=== PATIENT | male | born 1950 | race Hispanic/Latino ===

== ENCOUNTER 2018-06-08 11:36 | Inpatient (IN) | payer MEDICARE ==
[2018-06-08] VITALS (30 sets, daily range): BP systolic 94–142; BP diastolic 61–94
[~2018-06-08] VITALS: Ht 157.5 cm; Wt 70.4 kg
[2018-06-08] MEDS ORDERED: AMIODARONE HCL 150MG 100 ML IV ONE (12:30)
[2018-06-08] MEDS ORDERED: METOPROLOL TARTRATE INJ 1 MG/ML VIAL IV ONE (12:30)
[2018-06-08 12:34] LABS: BASOPHILS % 0.6 % (0.0-1.0); EOSINOPHILS # (AUTO) 0.3 (0.0-0.4); EOSINOPHILS % 4.9 % (0.0-6.0); HEMATOCRIT 39.8 % (38.2-49.6); HEMOGLOBIN 13.5 g/dL (14.0-18.0); LYMPHOCYTES # (AUTO) 0.9 (1.0-3.2); LYMPHOCYTES % 16.2 % (18.0-39.1); MEAN CORPUSCULAR HEMOGLOBIN 32.3 pg (28-32); MEAN CORPUSCULAR HGB CONC 33.9 g/dL (31-35); MEAN CORPUSCULAR VOLUME 95.2 fL (81-99); MONOCYTES # (AUTO) 0.5 (0.2-0.8); MONOCYTES % 8.8 % (4.4-11.3); NEUTROPHILS # (AUTO) 3.7 (2.1-6.9); NEUTROPHILS % 69.3 % (38.7-80.0); PLATELET COUNT 159 x10e3/uL (140-360); RED BLOOD COUNT 4.18 x10e6/uL (4.3-5.7); RED CELL DISTRIBUTION WIDTH 14.6 % (11.7-14.4)
[2018-06-08] MEDS ORDERED: AMIODARONE 900MG 500 ML IV ONE (12:40)
[2018-06-08 12:58] LABS: ALBUMIN 4.1 g/dL (3.5-5.0); ANION GAP 16.6 mmol/L (8-16); CALCIUM 10.2 mg/dL (8.4-10.2); CREATININE, SERUM 4.33 mg/dL (0.72-1.25); MAGNESIUM 2.2 MG/DL (1.3-2.1); PHOSPHORUS 1.8 MG/DL (2.3-4.7); POTASSIUM 3.6 mmol/L (3.5-5.1)
--- NOTE | 2018-06-08 12:58 | Diagnostic Imaging Report ---
EXAMINATION: CHEST SINGLE (PORTABLE) INDICATION: \S\Palpitations COMPARISON: None FINDINGS: AP view TUBES and LINES: Right-sided ICD with 3 leads. Median sternotomy wires and mediastinal clips. LUNGS: Lungs are well inflated. There are bibasilar atelectasis. There is mild prominence of the central pulmonary vasculature, consistent with pulmonary venous congestion. PLEURA: No pleural effusion or pneumothorax. HEART AND MEDIASTINUM: Cardiac size is moderately enlarged. There are atherosclerotic calcifications within the aorta. BONES AND SOFT TISSUES: No acute osseous lesion. Soft tissues are unremarkable. UPPER ABDOMEN: No free air under the diaphragm. IMPRESSION: Moderate cardiomegaly with mild central pulmonary venous congestion. Signed by: Dr. Saleem Lackey M.D. on 06/08/2018 12:55 PM
[2018-06-08] MEDS ORDERED: AMIODARONE HCL 150 MG in DEXTROSE 5% 100ML 100 ML IV ONE (13:00)
[2018-06-08] MEDS ORDERED: RENVELA0.8 GM PO (13:17)
[2018-06-08] MEDS ORDERED: CLOPIDOGREL75 MG PO (13:17)
[2018-06-08] MEDS ORDERED: METOPROLOL SUCC25 MG PO (13:17)
[2018-06-08] MEDS ORDERED: PRAVASTATIN SOD20 MG PO (13:17)
[2018-06-08] MEDS ORDERED: ASPIR 8181 MG PO (13:17)
[2018-06-08 13:18] LABS: THYROID STIMULATING HORMONE 2.308 uIU/mL (0.350-4.940)
[2018-06-08] MEDS ORDERED: ONDANSETRON HCL INJ 2 MG/ML VIAL IV PRN (14:30)
[2018-06-08] MEDS ORDERED: ASPIRIN 81 MG CHEW TAB PO ONE (14:30)
[2018-06-08] MEDS ORDERED: POTASSIUM PHOSPHATE 20 MM in SODIUM CHLORIDE 0.9% 250ML 250 ML IV SCH (15:30)
[2018-06-08] MEDS: SEVELAMER CARBONATE 800 MG TAB PO SCH (17:00)
[2018-06-08] MEDS ORDERED: HEPARIN 25,000U/0.45% NS 250ML 700 UNIT in SODIUM CHLORIDE 0.9% 250ML 0 ML IV SCH (18:30)
[2018-06-08] MEDS ORDERED: HEPARIN SOD (PORCINE) 5,000 UNIT/ML VIAL IV ONE (18:30)
[2018-06-08 19:54] LABS: CREATINE KINASE MB 1.3 ng/mL (0-5.0)
--- NOTE | 2018-06-08 21:31 | Consultation ---
DATE OF CONSULTATION: June 08, 2018 HISTORY: Mr. Jonathan Le is a 67-year-old gentleman with underlying history of hypertension, end-stage renal disease, type-2 diabetes and organ damage, underlying coronary artery disease, status post pacemaker placement, had issues with his pacemaker, apparently Dr. Purcell is consulted, went into AFib with RVR. Currently, laying supine, in no apparent distress. He is status post dialysis today, completely asymptomatic. Denies shortness of breath, nausea, and vomiting or chest pains. Chest x-ray shows moderate cardiomegaly with mild central pulmonary venous congestion. LABORATORY TEST: White count 5.3, hemoglobin 13.5. Potassium 3.6, creatinine 4.33, with the BNP of 1435. ALLERGIES: NO APPARENT DRUG ALLERGIES. CURRENT MEDICATIONS 1. Patient is on amiodarone. Heart rate is now better in the 80s. 2. Aspirin 81 mg once a day. 3. Plavix 75 mg once a day. 4. Metoprolol 25 mg daily. 5. Ondansetron. 6. Pravastatin. 7. Renagel. For dose , please see MAR. SOCIAL HISTORY: Patient does not smoke or drink. PAST HISTORY: History of AV fistula creation and coronary artery bypass surgery. EXAM GENERAL: Awake, alert, laying supine, in no apparent distress. VITAL SIGNS: With the blood pressure of 129/82, pulse rate 114, afebrile. HEENT: Head and neck: Cornea clear. Oral mucosa dry. LUNGS: Relatively clear. No rales or rhonchi. HEART: S1, S2 audible. ABDOMEN: Soft, nontender. LOWER EXTREMITIES: No edema. IMPRESSIONS AND PLAN 1. End-stage renal disease. No evidence of fluid overload, status post dialysis. 2. Secondary hyperparathyroidism. 3. Anemia of chronic kidney disease. 4. Blood pressure appears controlled. Volume status stable. Further recommendations to follow. Job#: [id number] CQ
[2018-06-08] MEDS ORDERED: HEPARIN SOD (PORCINE) 5,000 UNIT/ML VIAL ONE (22:03)
[2018-06-08] MEDS ORDERED: HEPARIN 25,000U/0.45% NS 250ML 250 ML ONE (22:07)
[2018-06-09] VITALS (52 sets, daily range): BP systolic 97–137; BP diastolic 55–81
[2018-06-09 04:40] LABS: BASOPHILS % 0.5 % (0.0-1.0); EOSINOPHILS # (AUTO) 0.4 (0.0-0.4); EOSINOPHILS % 6.3 % (0.0-6.0); HEMATOCRIT 35.9 % (38.2-49.6); HEMOGLOBIN 12.2 g/dL (14.0-18.0); LYMPHOCYTES % 16.1 % (18.0-39.1); MEAN CORPUSCULAR HEMOGLOBIN 32.4 pg (28-32); MEAN CORPUSCULAR VOLUME 95.5 fL (81-99); MONOCYTES # (AUTO) 0.6 (0.2-0.8); NEUTROPHILS # (AUTO) 3.9 (2.1-6.9); NEUTROPHILS % 66.8 % (38.7-80.0); PLATELET COUNT 147 x10e3/uL (140-360); RED BLOOD COUNT 3.76 x10e6/uL (4.3-5.7); RED CELL DISTRIBUTION WIDTH 14.5 % (11.7-14.4)
[2018-06-09 05:00] LABS: ALBUMIN 3.4 g/dL (3.5-5.0); ANION GAP 19.4 mmol/L (8-16); CALCIUM 8.4 mg/dL (8.4-10.2); CREATININE, SERUM 6.38 mg/dL (0.72-1.25); POTASSIUM 4.4 mmol/L (3.5-5.1)
[2018-06-09 05:18] LABS: CREATINE KINASE MB 1.2 ng/mL (0-5.0)
[2018-06-09 07:39] LABS: MAGNESIUM 2.1 MG/DL (1.3-2.1); PHOSPHORUS 5.3 MG/DL (2.3-4.7)
[2018-06-09] MEDS: SEVELAMER CARBONATE 800 MG TAB PO SCH ×2 (08:58→12:47)
[2018-06-09] MEDS ORDERED: CLOPIDOGREL BISULFATE 75 MG TAB PO SCH (09:00)
[2018-06-09] MEDS ORDERED: ASPIRIN 81 MG CHEW TAB PO SCH (09:00)
[2018-06-09] MEDS ORDERED: PRAVASTATIN 20 MG TAB PO SCH (09:00)
[2018-06-09] MEDS ORDERED: METOPROLOL SUCCINATE 25 MG TAB XL PO SCH (09:00)
[2018-06-09 12:56] LABS: CREATINE KINASE MB 1.2 ng/mL (0-5.0)
[2018-06-09] MEDS ORDERED: ELIQUIS PO (15:41)
--- NOTE | 2018-06-09 16:57 | Consultation ---
DATE OF CONSULTATION: June 09, 2018 CARDIOLOGY CONSULTATION REFERRING PHYSICIAN: Dr. Tomas Gupta. HISTORY OF PRESENT ILLNESS: Mr. Le is a pleasant 67-year-old man followed by Dr. Patel as outpatient. He has a history of hypertension, end-stage renal disease, type 2 diabetes with end-organ damage, CAD status post aortocoronary bypass, and history of bi-V AICD recently placed by Dr. Addison. He gets scheduled dialysis and is followed by Dr. Chris. He was noted to have wide-complex tachycardia while on dialysis, reason why he was transferred to inpatient for further evaluation, was placed on amiodarone drip. Interrogation of the device was significant for atrial fibrillation with episodes of rapid ventricular response, no ventricular tachycardia noted. A decision was made to initiate IV heparin, continue amiodarone. Patient was scheduled for observation of 24-hour period, after which if no cardioversion was observed next day will be NANO-guided DC cardioversion. This was discussed with patient and nursing staff prior to scheduling for DC cardioversion. He, however, converted to normal sinus rhythm. He has no complaints, denies chest pain or shortness of breath, feels back to baseline. I extensively discussed of alternatives for treatment including vitamin K antagonist versus new oral anticoagulants. Indications, alternatives, risks and benefits were discussed including lack of reversibility agent with many of the new oral anticoagulants including Eliquis. Patient opts, after voicing understanding, for Eliquis anticoagulation, which will be initiated. He has been advised to discontinue the aspirin and continue the clopidogrel and follow up as outpatient with his vice president regulatory. He has no other complaints at this point in time. REVIEW OF SYSTEMS: A 12-system review negative except for as noted above. ALLERGIES: NO KNOWN DRUG ALLERGIES. NONE REPORTED. PAST MEDICAL HISTORY: Significant for ESRD, diabetes mellitus type 2, hypertension, bi-V AICD, chronic systolic heart failure, atrial fibrillation new diagnosis. SOCIAL HISTORY: No smoking, alcohol or drugs. FAMILY HISTORY: Noncontributory. PHYSICAL EXAMINATION VITAL SIGNS: Temperature 97.5, heart rate 61, respiratory rate 18, blood pressure 116/65, O2 sat 100% on room air. GENERAL: No acute distress. Alert. NECK: No JVD. CHEST: Clear to auscultation. CARDIOVASCULAR: Regular rate and rhythm. Normal S1 and S2. No S3 or S4. No murmurs or rubs. Sternotomy scar. ABDOMEN: Soft, nontender. EXTREMITIES: No edema. CARDIOVASCULAR MEDICATIONS: Reviewed. 1. Metoprolol succinate 25 mg daily. 2. Clopidogrel 75 mg daily. 3. Aspirin 81 mg daily. 4. Heparin IV being transitioned to Eliquis 5 mg every 12 hours. 5. Status post amiodarone drip. Will discontinue further amiodarone dosage at this point and allow patient's treating vice president regulatory to make decision on continuing long-term amiodarone dosage versus other alternative modalities for treatment. STUDIES: Reviewed. White blood cells 5.9, hemoglobin 12.2, platelets 147. PTT 61. Sodium 139, potassium 4.4, chloride 99, bicarbonate 25, BUN 32, creatinine 6.3, magnesium 2.1. Negative cardiac enzymes x3. BNP was 1435. Total protein 6.7, albumin 3.4. Chest x-ray, moderate cardiomegaly with mild central pulmonary venous congestion. On telemetry currently in normal sinus rhythm with paced rhythm. ASSESSMENT 1. Paroxysmal atrial fibrillation, new onset. 2. Chronic systolic heart failure with acute decompensation, now improved. 3. End-stage renal disease. 4. Hypertension. 5. Diabetes mellitus. 6. Coronary artery disease with history of aortocoronary bypass. RECOMMENDATIONS 1. Eliquis 5 mg every 12 hours. 2. Continue metoprolol. 3. Okay to discharge with outpatient followup with Dr. Patel. Job#: [id number] EV
== END 2018-06-09 16:26 | disposition home or self-care (01) | DRG 308 ==
LOC: ER 11:36 → ERHOLD 14:46 → ICU 16:59
PROVIDERS: ADMIT Internal Medicine Critical Care Medicine; ATTEND Internal Medicine Critical Care Medicine
DX: I48.0 Paroxysmal atrial fibrillation (principal); N18.6 End stage renal disease; I50.23 Acute on chronic systolic (congestive) heart failure; I13.2 Hypertensive heart and chronic kidney disease with heart failure and with stage 5 chronic kidney disease, or end stage renal disease; N25.81 Secondary hyperparathyroidism of renal origin; E11.22 Type 2 diabetes mellitus with diabetic chronic kidney disease; Z99.2 Dependence on renal dialysis; Z95.1 Presence of aortocoronary bypass graft; D63.1 Anemia in chronic kidney disease; Z95.810 Presence of automatic (implantable) cardiac defibrillator; I25.10 Atherosclerotic heart disease of native coronary artery without angina pectoris; Z79.01 Long term (current) use of anticoagulants; Z79.02 Long term (current) use of antithrombotics/antiplatelets
CPT/HCPCS: 36415; 71045; 80053; 82550; 82553; 83735; 83880; 84100; 84443; 84484; 85025; 85730; 93005; 93306; 99284; J1644; J7050

== ENCOUNTER 2020-05-18 13:48 | Inpatient (IN) | payer MEDICARE, OTHER ==
[~2020-05-18] VITALS: Ht 165.1 cm; Wt 64.9 kg
[~2020-05-18 13:48] MED LIST: ASPIR 8181 MG PO; CLOPIDOGREL75 MG PO; ELIQUIS PO; METOPROLOL SUCC25 MG PO; PRAVASTATIN SOD20 MG PO; RENVELA0.8 GM PO
--- OUTSIDE RECORDS SUMMARY | 2020-05-18 14:03 | XMS REPORT | Clinical Summary ---
Author Author [facility] Address Unknown Phone Unavailable Care Team Providers Care Buffer Copper Name Role Phone Hayden Romero MD 3 Unavailable Stephanie Valdez PCP Issa Prado MD Unavailable Allergies No Known Allergies Medications End Date Status Medication Sig Dispensed Refills Start Date Active clopidogrel (PLAVIX) 75 Take 75 mg by 0 mg tablet mouth daily. Active valsartan (DIOVAN) 40 MG Take 40 mg by 0 tablet mouth daily. Active glipiZIDE (GLUCOTROL) 5 Take 10 mg by 0 MG tablet mouth daily. Active sevelamer (RENVELA) 800 Take 800 mg 0 mg tablet by mouth 3 (three) times daily with meals. Active cholecalciferol, vitamin Take by 0 D3, 2,000 unit Cap mouth. Active pravastatin (PRAVACHOL) Take 40 mg by 0 40 MG tablet mouth daily. Active lisinopril Take 20 mg by 0 (PRINIVIL,ZESTRIL) 20 MG mouth daily. tablet Active metoprolol (TOPROL-XL) 25 Take 25 mg by 0 MG 24 hr tablet mouth daily. Active metoprolol (LOPRESSOR) 25 Take 25 mg by 0 MG tablet mouth daily. Active Problems Problem Noted Date DM (diabetes mellitus) 10/03/2013 HTN (hypertension) 10/03/2013 Hyperlipidemia 10/03/2013 Pre-transplant evaluation for ESRD (end stage renal d isease) 07/25/2013 Encounters Care Team Description Date Type Specialty Shelly Hong RN 09/26/2019 Abstract Transplant Shelly Hong RN Committee Review 07/28/2019 Telephone Transplant Breanna Rouse Appointment (Called patient to schedule Malian day one renal txp eval appt. No answer. Left detailed voicemail message in Malian.) 07/06/2019 Telephone Transplant Breanna Rouse 07/05/2019 Abstract Transplant after 05/18/2019 Family History Medical History Relation Name Comments Coronary artery disease Brother Coronary artery disease Mother Coronary artery disease Sister Relation Name Status Comments Brother Mother Sister Social History Date Tobacco Use Types Packs/Day Years Used Never Smoker Sex Assigned at Date Recorded Not on file Industry Job Start Date Occupation Not on file Not on file Not on file Travel End Travel History Travel Start No recent travel history available. Last Filed Vital Signs Time Taken Vital Sign Reading - Blood Pressure - - Pulse - - Temperature - - Respiratory Rate - - Oxygen Saturation - - Inhaled Oxygen - Concentration 07/05/2019 9:38 AM CDT Weight 64 kg (141 lb 1.5 oz) 07/05/2019 9:38 AM CDT Height 166.4 cm (5' 5.51") 07/05/2019 9:38 AM CDT Body Mass Index 23.11 Plan of Treatment Health Maintenance Due Date Last Done Comments COLON CANCER SCREENING 1952 COLONOSCOPY PNEUMOCOCCAL 65+ 2017 LOW/MEDIUM RISK (1 of 2 - PCV13) INFLUENZA VACCINE (#1) 2020 Results Not on fileafter 05/18/2019 Insurance Payer Benefit Subscriber ID Type Phone Address Plan / Group MEDICARE MEDICARE A xxxxxxxxxx Medicare B
--- OUTSIDE RECORDS SUMMARY | 2020-05-18 14:03 | XMS REPORT | Continuity of Care Document ---
Author Author Christie ContentDJ GUDEL[facility] [employer] Address Unknown Phone Unavailable Care Team Providers Care Head Soft Sugar Operator Name Role Phone IXcellerate Information [employer] Unavailable Un available Problems Problem Status Onset Date Classification Date Reported Comments Source Angina Active Problem 04/26/2014 Gila Lund ESRD (end stage renal disease) on dialysis Active Problem 04/26/2014 Gila Lund Mitral valve disorders Active Problem 04/26/2014 Gila Lund CAD (coronary artery disease) of bypass graft Active Problem 04/26/2014 Gila Lund Abnormal cardiovascular stress test Active Diagnosis 0 04/26/2014 Gila Lund CHF Chronic diastolic heart failure Active Problem Gila Lund Carotid Bruit Active Diagnosis 04/26/2014 Gila Lund Swelling of limb Active Problem 04/26/2014 Gila Lund Equivalent angina Active Problem 04/26/2014 Gila Lund Shortness of breath Active Problem 04/26/2014 Gila Lund CHF Acute Systolic Heart failure Active Problem Gila Lund Diabetes with unspecified complication, type II or unspecified type, not stated as uncontrolled Active Diagnosis 04/26/2014 Gila Lund Abnormal EKG Active Diagnosis 04/26/2014 Gila Lund Medications Medication Details Route Status Patient Instructions Ordering Provider Order Date Source Pravastatin Sodium 1 tablet Orally Active 20 mg Orally Once a day Kevon Lund Metoprolol Tartrate 1 tablet Orally Active 25 MG Orally twice a day (bid) Kevon Lund Clopidogrel Bisulfate 1 tablet Orally Active 75 mg Orally Once a day Kevon Lund Benzonatate 1 capsule as needed Orally Active 100 MG Orally Three times a day Kevon Lund Lisinopril 1 tablet Orally Active 20 mg Orally Once a day Kevon Lund GlipiZIDE 1 tablet Orally Active 10MG Orally BID Kevon clark Osmany Lund Allergies, Adverse Reactions, Alerts Substance Category Reaction Severity Reaction type Status Date Reported Comments Source N.K.D.A. Adverse Reaction Info Not Available Adverse Reaction Active 04/19/2014 Gila Lund Immunizations No Data Provided for This Section Results No Data Provided for This Section Pathology Reports No Data Provided for This Section Diagnostic Reports No Data Provided for This Section Consultation Notes No Data Provided for This Section Discharge Summaries No Data Provided for This Section History and Physicals No Data Provided for This Section Vital Signs Vital Sign Value Date Comments Source Weight 163 04/19/2014 Mohamber Lund Height 64 0 04/19/2014 Gila Lund Temperature Oral (F) 97.8 F 04/19/2014 Gila Lund Heart Rate 93 04/19/2014 Gila Lund Diastolic (mm Hg) 70 04/19/2014 Mohamber Lund Systolic (mm Hg) 120 04/19/2014 Gila Lund Encounters Location Location Details Encounter Type Encounter Number Reason For Visit Attending Provider ADM Date DC Date Status Source Gila Lund MD PA Unknown [id number] 04/19/20 14 04/19/2014 Gila Lund Procedures No Data Provided for This Section Assessment and Plan No Data Provided for This Section Plan of Care No Data Provided for This Section Social History Social History Date Source Social History ElementQualifiersDate Rep orted Smoking . Status Former Smoker 1980 Apr 19, 2014 Alcohol Use No. Apr 19, 2014 Alcohol Screening: No. Points: 0, Interpretation: Negative Apr 19, 2014 Marital Status: . Apr 19, 2014 Do you drink alcohol? No. Apr 19, 2014 04/19/2014 Gila Lund Family History Value Date S ource QualifierDescriptionCommentDate Reported Mother [place], DM Apr 19, 2014 Children alive Comment not available Apr 19, 2014 Father Cancer, questionable primary Apr 19, 2014 Siblings alive Comment not available Apr 19, 2014 04/26/2014 Gila Lund Advance Directives No Data Provided for This Section Functional Status No Data Provided for This Section
--- OUTSIDE RECORDS SUMMARY | 2020-05-18 14:03 | XMS REPORT | Clinical Summary ---
Author Author [facility] Address Unknown Phone Unavailable Care Team Providers Care Fire Hose Curer Name Role Phone Stephanie Valdez MD PCP Allergies No Known Allergies Medications End Date Status Medication Sig Dispensed Refills Start Date Active sevelamer (RENAGEL) 800 Take 800 mg 0 MG tablet by mouth daily. Active aspirin (ECOTRIN) 81 MG Take 81 mg by 0 enteric coated tablet mouth daily. Active pravastatin (PRAVACHOL) Take 20 mg by 0 20 MG tablet mouth nightly. Active clopidogreL (PLAVIX) 75 Take 75 mg by 0 mg tablet mouth daily. Active metoprolol tartrate Take 50 mg by 0 (LOPRESSOR) 50 mg tablet mouth daily. 0 12/20/2020 Active lisinopriL (PRINIVIL) 5 Take 1 tablet 30 tablet 11 mg tabletIndications: (5 mg total) 0 Essential hypertension by mouth daily. Active Problems Problem Noted Date Hypertension Hyperlipidemia Encounters Care Team Description Date Type Specialty Louie Patel MD Essential hypertension (Primary Dx); Mixed hyperlipidemia 01/25/2020 Telemedicine Cardiology 01/25/2020 Coby Sandoval MA Results 01/03/2020 Telephone Cardiology Coby Gutiérrez MA Mixed hyperlipidemia (Primary Dx) 12/25/2019 Orders Only Cardiology Louie Patel MD Essential hypertension (Primary Dx); Mixed hyperlipidemia; Chronic systolic heart failure (HCC); Biventricular cardiac pacemaker in situ 12/21/2019 Telemedicine Cardiology 12/05/2019 Coby Sandoval MA Mixed hyperlipidemia (Primary Dx) 12/05/2019 Orders Only Cardiology Coby Gutiérrez MA Essential hypertension (Primary Dx) 12/05/2019 Orders Only Cardiology Louie Patel MD Essential hypertension (Primary Dx); Mixed hyperlipidemia; Encounter to establish care 11/14/2019 Office Visit Cardiology after 05/18/2019 Family History Medical History Relation Name Comments No Known Problems Father Heart attack Mother Heart attack Sister Relation Name Status Comments Brother Father Mother Sister Social History Date Tobacco Use Types Packs/Day Years Used Former Smoker Smokeless Tobacco: Never Used Tobacco Cessation: Counseling Given: Yes Drinks/Week oz/Week Comments Alcohol Use Never Alcohol Habits Answer Date Recorded How often do you have a drink containing alcohol? Never 11/14/2019 How many drinks containing alcohol do you have on No t asked a typical day when you are drinking? How often do you have six or more drinks on one Not asked occasion? Sex Assigned at Date Recorded Not on file Industry Job Start Date Occupation Not on file Not on file Not on file Travel End Travel History Travel Start No recent travel history available. Last Filed Vital Signs Reading Time Taken Comments Vital Sign 158/55 01/25/2020 2:14 PM CDT Blood Pressure 70 11/14/2019 1:57 PM COLOR PRINT INSPECTOR Pulse - - Temperature - - Respiratory Rate - - Oxygen Saturation - - Inhaled Oxygen Concentration 66.2 kg (146 lb) 01/25/2020 2:14 PM CDT Weight 162.6 cm (5' 4") 01/25/2020 2:14 PM CDT Height 25.06 01/25/2020 2:14 PM CDT Body Mass Index Plan of Treatment Care Team Description Date [place] [id number] [address] [phone] 07/30/2020 Office Visit Cardiology Health Maintenance Due Date Last Done Comments DIABETIC RETINAL EYE EXAM 1950 DIABETIC FOOT EXAM 1962 URINE MICROALBUMIN 1962 COLONOSCOPY SCREENING 2002 SHINGLES VACCINES (#1) 2002 65+ PNEUMOCOCCAL VACCINE 2017 (1 of 2 - PCV13) INFLUENZA VACCINE 06/13/2020 Procedures Comments Procedure Name Priority Date/Time Associated Diag nosis LIPID PANEL Routine 01/02/2020 Mixed hyperlipi demia 7:37 AM CDT TTE COMPLETE, WO Routine 12/05/2019 Essential hyp ertension CONTRAST, W DOPPLER 11:25 AM CDT (05906) LIPID PANEL Routine 12/05/2019 Mixed hyperlipi demia 9:15 AM CDT ECG 12-LEAD Routine 11/14/2019 Essential hyper tension 2:03 PM COLOR PRINT INSPECTOR after 05/18/2019 Results * Lipid panel (01/02/2020 7:37 AM CDT) Only the most recent of 2 results within the time period is included. Pathologist [facility] Cholesterol, 140 <200 mg/dL [facility] total DIAGNOSTICS [place] HDL cholesterol 43 > OR = 40 mg/dL [facility] [place] Triglycerides 135 <150 mg/dL [facility] [place] LDL cholesterol 75 mg/dL (calc) [facility] calculated Comment: DIAGNOSTICS Reference range: <100 [place] Desirable range <100 mg/dL for primary prevention; <70 mg/dL for patients with CHD or diabetic patients with > or = 2 CHD risk factors. LDL-C is now calculated using the Lacy calculation, which is a validated novel method providing better accuracy than the Friedewald equation in the estimation of LDL-C. Rodrick SS et al. JOMAR. 2013;310(19): 7702-5138 (http://education.[employer].reMail/faq/JBU345) Cholesterol/HDL 3.3 <5.0 (calc) [facility] ratio DIAGNOSTICS [place] Non-HDL 97 <130 mg/dL (calc) [facility] cholesterol Comment: DIAGNOSTICS For patients with diabetes [place] plus 1 major ASCVD risk factor, treating to a non-HDL-C goal of <100 mg/dL (LDL-C of <70 mg/dL) is considered a therapeutic option. Specimen Blood Narrative Performed At FASTING:YES [facility] FASTING: YES Resulting Agency Comment Performing Organization Information: Site ID: [id number] Name: [facility] Address: [address] [place] [id number] Director: Pastor Lemon Performing Organization Address City/State/Zipcode Ph one Number [facility] [address] [phone] * Transthoracic Echocardiogram Complete, (w Contrast, Strain and 3D if needed) (12/05/2019 11:25 AM CDT) Pathologist [facility] Ao Root 3.20 cm [facility] Diameter AoV Area, Vmax 1.82 cm2 [facility] AoV Area, VTI 1.56 cm2 [facility] AoV Mean PG 4.10 mmHg [facility] AoV Peak PG 8.82 mmHg [facility] AoV Vmax 1.49 m/s [facility] AoV VTI 0.34 m [facility] IVS,d 1.10 cm [facility] Left Atrium 4.56 cm [facility] Dimension Anterior LV,d 5.96 cm [facility] LV EF,A2C 27.02 % [facility] LV EF,A4C 23.34 % [facility] LV EF,BP 25.48 % [facility] [place],d A2C 8.89 cm [facility] [place],d A4C 8.65 cm [facility] [place],s A2C 7.61 cm [facility] [place],s A4C 7.76 cm [facility] LV,s 5.24 cm [facility] LV SV,A2C 43.95 % [facility] LV SV,A4C 36.17 % [facility] LV Vol,d A2C 162.65 mL [facility] LV Vol,d A4C 154.94 ml [facility] LV Vol,d BP 160.50 ml [facility] LV Vol,s A2C 118.70 mL [facility] LV Vol,s A4C 118.77 ml [facility] LV Vol,s BP 119.61 nl [facility] LVOT Diam,S 2.11 cm [facility] LVOT Vmax 0.78 m/s [facility] LVOT VTI 0.15 m [facility] LVPWD,d 1.11 cm [facility] PV Mean Grad 2.12 mmHg [facility] PV Pk Grad 3.53 mmHg [facility] PV VMAX 0.94 m/s [facility] PV VTI 0.25 m [facility] RVOT Vmax 0.60 m/s [facility] RVSP (TR) 66.90 mmHg [facility] TR Vpeak 3.60 mm/s [facility] MV E A ratio 1.89 [facility] RA pressure 10.00 mmHg [facility] TR pk grad 40.85 mmHg [facility] PV Vmn 0.70 [facility] MR Vmax 5.16 m/s [facility] E wave 199.29 msec [facility] decelartion time MV Peak A Guero 0.57 m/s [facility] MV Peak E Guero 1.07 m/s [facility] AV LVOT peak 2.41 mmHg [facility] gradient Ascending aorta 3.12 cm [facility] RVSP 66.90 mmHg [facility] Ao Root 3.20 cm [facility] Diameter MV mean 1.64 mmHg [facility] gradient LV SYS VOL 131.60 ml [facility] LV DEGROOT VOL 177.16 ml [facility] LV SV Teich 2D 45.56 ml [facility] LVOT SI 31.22 ml/m2 [facility] MR peak grad 4.80 mmHg [facility] MV Vmax 1.10 m [facility] MV VTI Tips 0.30 m [facility] RVOT pk grad 1.45 mmHg [facility] AoV Vmn 0.95 [facility] LVOT Vmn 0.44 [facility] Pt Size 162.56 [facility] Pt Wt 66.22 [facility] LVOT mean grad 0.92 mmHg [facility] RVOT mean grad 0.98 mmHg [facility] RVOT Vmn 0.48 m/s [facility] RVOT VTI 0.18 m [facility] MV Decel slope 5.39 m/s2 [facility] Glob Peak Long -7.45 % [facility] St A2C Glob [place] Long -6.65 % [facility] St A4C Glob [place] Long -10.47 % [facility] St ApLong Glob Peak Long -8.19 % [facility] St LA Vol MOD A4C 76.35 ml [facility] Velocity Ratio 0.52 m/s [facility] (V1/V2) EF 25.72 % [facility] E/A ratio 1.88 [facility] LVOT area 3.49 cm2 [facility] TDI SEPTAL e' 0.0 [facility] TDI LATERAL e' 0.0 m/s [facility] Mitral Valve 36.2 [facility] E/E' E prime lat 0.03 [facility] E melecio sept 0.03 [facility] Specimen Narrative Performed At [facility] Left Ventricular ejection fraction i s 25 - 30%. Left ventricular systolic function i s severely impaired. There is mild left ventricular greg ntric hypertrophy. The left ventricle chamber size is m ildly enlarged. Spectral Doppler shows pseudonormal pattern of left ventricular diastolic filling. Right atrium size is moderately enla rged. The left atrium size by volume is mo derately dilated. The right atrium is moderately dilat ed. Mild mitral valve regurgitation. Mil d mitral annular calcification. Moderate to severe tricuspid valve r egurgitation. RA pressure is elevated. Moderate pulmonary hypertensi on present. RVSP is 66.9 mmHg. Aortic root is normal. Estimated left atrial pressure 60 mm Hg No pericardial effusion seen. There is evidence of a PFO by color Doppler with [id number] shunt, saline contrast injection showed negati ve contrast echo with no evidence of right to left shunting. Average global longitudinal peak str ain of -8.4%. Performing Organization Address [facility] one Number [facility] [address] [place] [address] * ECG 12 lead (11/14/2019 2:03 PM COLOR PRINT INSPECTOR) Ventricular 68 [facility] rate Atrial rate 68 [facility] AR interval 164 [facility] QRSD interval 148 [facility] QT interval 490 [facility] QTC interval 521 [facility] P axis 1 66 [facility] QRS axis 1 -67 [facility] T wave axis 112 [facility] EKG impression Atrial-sensed [facility] ventricular-paced rhythm-Biventricular pacemaker detected-Abnormal ECG-No previous ECGs available- Specimen Narrative Performed At This result has an attachment that is n ot available. Performing Organization Address [facility] one Number H M[facility] [address] [place] [address] after 05/18/2019 Insurance Type Payer Benefit Subscriber ID Effective Phone Address Plan / Dates Group Medicare MEDICARE MEDICARE xxxxxxxxxxx 2011-P SISSY, PART A AND [facility] [place] B Advance Directives For more information, please contact: [phone] Patient Archivist Nonprofit Foundation Explanation Type Date Recorded Advance Directives, Living Will and Medical Power of Blasting Entry Specialist
--- OUTSIDE RECORDS SUMMARY | 2020-05-18 14:03 | XMS REPORT | Continuity of Care Document ---
Author Author [facility] t Organization [facility] Address [address] [place] [address] Phone Unavailable Care Team Providers Care Desk Manager Name Role Phone Ty CLOUD PCP Jorge DEL CID, Issa Palma Attphys Brock JASMINE, Coby Attphys Unavailable Gely CARBALLO, Shelly Attphys Unavailable Breanna Rouse Attphys Unavailable Ric HOANG Attphys Unavailable Payers Payer Name Policy Type Policy Number Effective Date Expiration Date S ar[place] MEDICAREMEDICARE PART A AND Bxxxxxxxxxxx2011-[facility] TXMedicare xxxxxxxxxxx 2011 00:00:00 [facility] MEDICAREMEDICARE A BxxxxxxxxxxMedicare xxxxxxxxxx [facility] Medicare A & B [id number] 2011 00:00:00 [facility] Problems Condition Name Condition Details Condition Category Status Onset Date Resolution Date Last Treatment Date Treating Clinician Comments Source DM (diabetes mellitus) DM (diabetes mellitus) Disease Active 2013-10-03 00:00:00 [facility] Pre-transplant evaluation for ESRD (end stage renal di sease) Pre-transplant evaluation for ESRD (end stage renal disease) Disease Active 2013-07-25 00:00:00 [facility] Malfunction of cardiac pacemaker Pacemaker malfunction Problem Active [facility] Wide-complex tachycardia Wide-complex tachycardia Problem Active [facility] Angina Priti na Active Problem 04/26/2014 Gila Elmorearlene Problem Active 2014-04-26 03:01:36 Christie Calero ESRD (end stage renal disease) on dialysis ESRD (end stage renal disease) on dialysis Active Problem 04/26/2014 Bisiamber Osmany Lund Problem Active 2014-04-26 03:01:36 Christie Calero Mitral valve disorders Mitr al valve disorders Active Problem 04/26/2014 Gila Osmany Lund Problem Active 20 26-04-14 03:01:36 Christie Calero CAD (coronary artery disease) of bypass graft CAD (coronary artery disease) of bypass graft Active Problem 04/26/2014 Gila Osmany Lund Problem Active 2014-04-26 03:01:36 Lei Calero Abnormal cardiovascular stress test Abnormal cardiovascular stress test Active Diagnosis 04/26/2014 Gila Lund Diagnosis Active 2014-04-26 03:01:36 Christie Calero CHF Chronic diastolic heart failure CHF Chronic diastolic heart failure Active Problem 04/26/2014 Gila Osmany Lund Problem Active 2014-04-26 03:01:36 Alisa Calero Carotid Bruit [place] Bruit Active Diagnosis 04/26/2014 Gila Lund Diagnosis Active 2014-04-26 03:01:3 6 Christie Calero Swelling of limb Swel ling of limb Active Problem 04/26/2014 Bisiamber Osmany Lund Problem Active 2014-04-26 03:01:36 Christie Claero Shortness of breath Shor tness of breath Active Problem 04/26/2014 Gila Lund Problem Active 2014-04-26 03:01:36 [facility] CHF Acute Systolic Heart failure CHF Acute Systolic Heart failure Active Problem 04/26/2014 Gila Lund Problem Active 2014-04-26 03:01:36 [facility] Diabetes with unspecified complication, type II or unspecified type, not stated as uncontrolled Diabetes with un specified complication, type II or unspecified type, not stated as uncontrolled Active Diagnosis 04/26/2014 Gila Lund Diagnosis Active 2014-04-26 03:01:3 6 [facility] Abnormal EKG Abno rmal EKG Active Diagnosis 04/26/2014 Gila Lund Diagnosis Active 2014-04-26 03:01:36 [facility] Hypertension Hypertension Disease Active [facility] Hyperlipidemia Hyperlipidemia Disease Active [facility] Allergies, Adverse Reactions, Alerts Allergy Name Allergy Type Status Severity Reaction(s) Onset Date Inacti ve Date Treating Clinician Comments Source No Known Allergies DA Active U 2016-01-23 00:00:00 [facility] N.K.D.A. N.K.D.A. Active Info Not Available 2014-04-19 00:00:00 [facility] Family History Family Member Diagnosis Comments Start Date Stop Date Source Natural brother Coronary artery disease [facility] Natural mother Coronary artery disease [facility] Natural mother Heart attack [facility] Natural sister Coronary artery disease [facility] Natural sister Heart attack [facility] Natural father No Known Problems Yvonne Chu Unknown Family Member Family History 2014-04-26 03:01:36 2 03:01:36 [facility] Social History Social Habit Start Date Stop Date Quantity Comments Source History SDOH Alcohol Std Drinks [facility] History SDOH Alcohol Binge [facility] Sex Assigned At [facility] Alcohol intake 2020-01-25 00:00:00 2020-01-25 00:00:00 Lifetime non-drinker (finding) [facility] History SDOH Alcohol Frequency 2019-11-14 00:00:00 2019-11-14 00:00:0 0 1 [facility] Smoking 2014-04-19 00:00:00 2014-04-19 00:00:00 [facility] Smoking Status Start Date Stop Date Source Former smoker 2020-01-25 00:00:00 2020-01-25 00:00:00 Manny Chu Never smoker [facility] Medications Ordered Medication Name Filled Medication Name Start Date Stop Da te Current Medication? Ordering Clinician Indication Dosage Frequency Signature (SIG) Comments Components Source sevelamer (RENAGEL) 800 MG tablet 2019-12-21 09:12:47 Yes 800mg QD Take 800 mg by mouth daily. Manny Chu aspirin (ECOTRIN) 81 MG enteric coated tablet 2019-12-21 09:12:4 7 Yes 81mg QD Take 81 mg by mouth daily. Aranza Chu pravastatin (PRAVACHOL) 20 MG tablet 2019-12-21 09:12:47 Ye s 20mg QD Take 20 mg by mouth nightly. Manny henriquez clopidogreL (PLAVIX) 75 mg tablet 2019-12-21 09:12:47 Yes 75mg QD Take 75 mg by mouth daily. Manny Chu lisinopriL (PRINIVIL) 5 mg tablet 2019-12-21 00:00:00 2020 23:59:00 No Essential hypertension 5mg QD Take 1 tablet (5 mg total) by mouth daily. Manny Chu metoprolol tartrate (LOPRESSOR) 50 mg tablet 2019-10-17 00:00:00 Yes 50mg QD Take 50 mg by mouth daily. Aranza Chu Pravastatin Sodium 2014-04-26 03:01:36 Yes Gila Castillodi 1 tablet [facility] Metoprolol Tartrate 2014-04-26 03:01:36 Yes Gila Elmoreoudi 1 tablet [facility] Clopidogrel Bisulfate 2014-04-26 03:01:36 Yes Gila Michael roudi 1 tablet [facility] Benzonatate 2014-04-26 03:01:36 Yes Gila Elmoreoudi 1 capsule as needed [facility] Lisinopril 2014-04-26 03:01:36 Yes Gila Elmoreoudi 1 tablet [facility] GlipiZIDE 2014-04-26 03:01:36 Yes Gila Elmoreoudi 1 tablet [facility] glipiZIDE (GLUCOTROL) 5 MG tablet 2013-10-03 13:41:02 Yes 10mg QD Take 10 mg by mouth daily. [facility] metoprolol (LOPRESSOR) 25 MG tablet 2013-10-03 13:41:02 Yes 25mg QD Take 25 mg by mouth daily. [facility] lisinopril (PRINIVIL,ZESTRIL) 20 MG tablet 2013-10-03 07:28:02 Yes 20mg QD Take 20 mg by mouth daily. [facility] metoprolol (TOPROL-XL) 25 MG 24 hr tablet 2013-10-03 07:28:02 Yes 25mg QD Take 25 mg by mouth daily. [facility] pravastatin (PRAVACHOL) 40 MG tablet 2013-10-03 07:28:01 Ye s 40mg QD Take 40 mg by mouth daily. [facility] clopidogrel (PLAVIX) 75 mg tablet 2013-07-25 11:42:58 Yes 75mg QD Take 75 mg by mouth daily. [facility] valsartan (DIOVAN) 40 MG tablet 2013-07-25 11:42:58 Yes 40mg QD Take 40 mg by mouth daily. [facility] sevelamer (RENVELA) 800 mg tablet 2013-07-25 11:42:58 Yes 800mg Take 800 mg by mouth 3 (three) times daily with meals. [facility] cholecalciferol, vitamin D3, 2,000 unit Cap 2013-07-25 11:42:58 Yes Take by mouth. [facility] Clopidogrel Bisulfate (Clopidogrel) 75 Mg Tablet Clopi dogrel Bisulfate (Clopidogrel) 75 Mg Tablet Yes 75 Daily [facility] Eliquis Elidakotais Yes 5 Every 12 Hours [facility] Metoprolol Succinate 25 Mg Tab.er.24h Metoprolol Succinate 25 Mg Ta b.er.24h Yes 25 Daily [facility] Pravastatin Sodium 20 Mg Tablet Pravastatin Sodium 20 Mg Tablet Yes 20 [facility] Sevelamer Carbonate (Renvela) 0.8 Gm Powd.pack Sevelam er Carbonate (Renvela) 0.8 Gm Powd.pack Yes 800 Three Times A Day [facility] Aspirin (Aspir 81) 81 Mg Tablet., 81 Mg Oral Aspirin (Aspir 81) 81 Mg Tablet., 81 Mg Oral 2018-06-09 00:00:00 No 81 Da nate [facility] Vital Signs Vital Name Observation Time Observation Value Comments Source Systolic blood pressure 2020-01-25 14:14:00 158 mm[Hg] Manny Chu Diastolic blood pressure 2020-01-25 14:14:00 55 mm[Hg] [facility] Body height 2020-01-25 14:14:00 162[facility]6 cm [facility] weight 2020-01-25 14:14:00 66.225 [facility] BMI 2020-01-25 14:14:00 25.06 kg/m2 [facility] Heart rate 2019-11-14 13:57:00 70 /min [facility] Body height 2019-07-05 09:38:00 166.4 cm [facility] Body weight Measured 2019-07-05 09:38:00 64 kg [facility] BMI 2019-07-05 09:38:00 23.11 kg/m2 [facility] Weight 2014-04-19 21:00:00 [facility] Height 2014-04-19 21:00:00 [facility] Temperature Oral (F) 2014-04-19 21:00:00 97.8 F [facility] Heart Rate 2014-04-19 21:00:00 [facility] Diastolic (mm Hg) 2014-04-19 21:00:00 [facility] Systolic (mm Hg) 2014-04-19 21:00:00 Lei [facility] Procedures Procedure Date / Time Performed Performing Clinician [facility] e LIPID PANEL 2020-01-02 07:37:00 Kevin Patel [facility] TTE COMPLETE, WO CONTRAST, W DOPPLER ([id number]) 2019-12-05 11:2 5:00 Kevin Patel LIPID PANEL 2019-12-05 09:15:00 Kevin Patel [facility] ECG 12-LEAD 2019-11-14 14:03:06 Kevin Patel [facility] Plan of Care Planned Activity Planned Date Details Comments Source Future Scheduled Test 2020-06-13 00:00:00 INFLUENZA VACCINE [code = INFLUENZA VACCINE] [facility] Future Scheduled Test 2020-05-14 00:00:00 INFLUENZA VACCINE (#1) [code = [facility] 00:00:00 PNEUMOCOCCAL 65+ L OW/MEDIUM RISK (1 of 2 - PCV13) [code = PNEUMOCOCCAL 65+ LOW/MEDIUM RISK (1 of 2 - PCV13)] [facility] Future Scheduled Test 2017 00:00:00 65+ PNEUMOCOCCAL V ACCINE (1 of 2 - PCV13) [code = 65+ PNEUMOCOCCAL VACCINE (1 of 2 - PCV13)] [facility] Future Scheduled Test 2002 00:00:00 COLONOSCOPY SCREEN ING [code = COLONOSCOPY SCREENING] [facility] Scheduled Test 2002 00:00:00 SHINGLES VACCINES (#1) [code = SHINGLES VACCINES (#1)] [facility] Scheduled Test 1962 00:00:00 DIABETIC FOOT EXAM [code = DIABETIC FOOT EXAM] [facility] Scheduled Test 1962 00:00:00 URINE MICROALBUMIN [code = URINE MICROALBUMIN] [facility] Scheduled Test 1952 00:00:00 Screening for taina gnant neoplasm of colon (procedure) [code = 839178472] [facility] Future Scheduled Test 1952 00:00:00 DIABETIC RETINAL E YE EXAM [code = DIABETIC RETINAL EYE EXAM] [facility] Encounters Start Date/Time End Date/Time Encounter Type Admission Type [facility] Care Department Encounter ID Source 2020-01-25 00:00:00 2020-01-25 00:00:00 Outpatient [facility] [id number] [facility] 2019-12-21 00:00:00 2019-12-21 00:00:00 Outpatient [facility] [id number] [facility] 2019-12-05 00:00:00 2019-12-05 00:00:00 Outpatient [facility] [id number] [facility] 2019-12-05 00:00:00 2019-12-05 00:00:00 Outpatient [facility] [id number] [facility] 2019-11-14 00:00:00 2019-11-14 00:00:00 Outpatient [facility] [id number] [facility] 2019-03-09 02:22:00 2019-03-09 02:22:00 Outpatient [id number] 2019-02-07 07:27:00 2019-02-07 07:27:00 Emergency [id number] 2018-06-08 14:46:00 2018-06-09 16:26:00 Discharged Inpatient 1 NATALYA KAIT [facility] [id number] [facility] 2014-04-19 16:00:00 2014-04-19 16:00:00 [place] [id number] [employer] Results Test Description Test Time Test Comments Results Result Comments Source Lipid panel 2020-01-03 04:18:00 Test Item Cholesterol, total (test code = 2093-3) 140 mg/dL <200 HDL cholesterol (test code = 2085-9) 43 mg/dL > OR = 40 Triglycerides (test code = 2571-8) 135 mg/dL <150 LDL cholesterol calculated (test code = 01082-9) 75 mg/dL (calc) Reference range: <100 Desirable range <100 mg/dL for primary prevention; <70 mg/dL for patients with CHD or diabetic patients with > or = 2 CHD risk factors. LDL-C is now calculated using the Rodrick-Aramis calculation, which is a validated novel method providing better accuracy than the Friedewald equation in the estimation of LDL-C. Rodrick SS et al. JOMAR. 2013;310(19): 2138-9988 (http:/ /education.Glocal.Code Climate/faq/UVY467) Cholesterol/HDL ratio (test code = 9830-1) 3.3 <5.0 (calc) Non-HDL cholesterol (test code = 09747-9) 97 <130 mg/dL ( calc) For patients with diabetes plus 1 major ASCVD risk factor, treating to a non-HDL-C goal of <100 mg/dL (LDL-C of <70 mg/dL) is considered a therapeutic option. CELIA (test code = CELIA) FASTING:YESFASTING: YES RAC (test code = RAC) Performing Organization Info rmation: Site ID: MARVIN Name: [facility] Address: [address] [place] [id number] Director: Pastor Lemon [place] [facility]a 12 [id number] 16:12:26* Test Item Value Reference Range Interpretation Comments Ventricular rate (test code = 253) 68 Atrial rate (test code = 255) 68 MS interval (test code = 266) 164 QRSD interval (test code = 260) 148 QT interval (test code = 264) 490 QTC interval (test code = 265) 521 P axis 1 (test code = 267) 66 QRS axis 1 (test code = 268) -67 T wave axis (test code = 270) 112 EKG impression (test code = 273) Atrial-sensed ventric ular-paced rhythm- Biventricular pacemaker detected-Abnormal ECG-No previous ECGs available- [place] [facility] [id number] 12:56:00* Test Item Value Reference Range Interpretation Comments Creatine Kinase MB (test code = 39738-7) 1.20 0-5.0 [facility]roponin [id number] 12:56:00* Test Item Value Reference Range Interpretation Comments Troponin I (test code = IAI6151) 0.106 0-0.300 [facility] HospitalCreatine [id number] 12:51:00* Test Item Value Reference Range Interpretation Comments Creatine Kinase (test code = 2157-6) 60 30-200 [facility] HospitalActivated Partial Thromboplast Time 2018-06-09 11:15:00* Test Item Value Reference Range Interpretation Comments Activated Partial Thromboplast Time (test code = 76200-2) 61.7 23.8-35.5 H [facility] HospitalPhosphorus [id number] 07:41:00* Test Item Value Reference Range Interpretation Comments Phosphorus Level (test code = ZOF2304) 5.3 2.3-4.7 H [facility] HospitalMagnesium [id number] 07:41:00* Test Item Value Reference Range Interpretation Comments Magnesium Level (test code = 89270-3) 2.1 1.3-2.1 [facility] [id number] 05:01:00* Test Item Value Reference Range Interpretation Comments Sodium Level (test code = 2951-2) 139 136-145 [facility] HospitalPotassium [id number] 05:01:00* Test Item Value Reference Range Interpretation Comments Potassium Level (test code = 2823-3) 4.4 3.5-5.1 [facility] HospitalChloride [id number] 05:01:00* Test Item Value Reference Range Interpretation Comments Chloride Level (test code = 2075-0) 99 98-107 [facility] HospitalCarbon Dioxide [id number] 05:01:00* Test Item Value Reference Range Interpretation Comments Carbon Dioxide Level (test code = 2028-9) 25 22-29 [facility] HospitalAnion [id number] 05:01:00* Test Item Value Reference Range Interpretation Comments Anion Gap (test code = 81108-2) 19.4 8-16 H [facility] HospitalBlood Urea [id number] 05:01:00* Test Item Value Reference Range Interpretation Comments Blood Urea Nitrogen (test code = 3094-0) 32 7-26 H [facility] HospitalCreatinine2018-09-27 05:01:00* Test Item Value Reference Range Interpretation Comments Creatinine (test code = 2160-0) 6.38 0.72-1.25 H [facility] HospitalBUN/Creatinine [id number] 05:01:00* Test Item Value Reference Range Interpretation Comments BUN/Creatinine Ratio (test code = 3097-3) 5 6-25 L [facility] HospitalEstimat Glomerular Filtration Rate 2018-06-09 05:01:00* Test Item Value Reference Range Interpretation Comments Estimat Glomerular Filtration Rate (test code = 589162790) 9 >60 L Ranges were taken from the National Kidney Disease Education Program and the [facility] Foundation literature.Reference ranges:60 or greater: Esbnuc53-18 ( for 3 consecutive months): Chronic kidney disease 15 or less: Kidney failureHouston Methodist The Woodlands HospitalGlucose [id number] 05:01:00* Test Item Value Reference Range Interpretation Comments Glucose Level (test code = ROJ2219) 144 74-118 H [facility] HospitalCalcium Iplhe3612-65-12 05:01:00* Test Item Value Reference Range Interpretation Comments Calcium Level (test code = 15571-2) 8.4 8.4-10.2 [facility] HospitalTotal Tffrfnqii8469-34-45 05:01:00* Test Item Value Reference Range Interpretation Comments Total Bilirubin (test code = 1975-2) 1.6 0.2-1.2 H [facility] HospitalAspartate Amino Transf (AST/SGOT) 2018-06-09 05:01:00* Test Item Value Reference Range Interpretation Comments Aspartate Amino Transf (AST/SGOT) (test code = Aspartate Amino Transf (AST/SGOT)) 33 5-34 [facility] HospitalAlanine Aminotransferase (ALT/SGPT) 2018-06-09 05:01:00* Test Item Value Reference Range Interpretation Comments Alanine Aminotransferase (ALT/SGPT) (test code = 1742-6) 30 0-55 [facility] HospitalTotal [id number] 05:01:00* Test Item Value Reference Range Interpretation Comments Total Protein (test code = 2885-2) 6.7 6.5-8.1 [facility] HospitalAlbumin2018-09-27 05:01:00* Test Item Value Reference Range Interpretation Comments Albumin (test code = 1751-7) 3.4 3.5-5.0 L [facility] HospitalGlobulin2018-09-27 05:01:00* Test Item Value Reference Range Interpretation Comments Globulin (test code = 53661-7) 3.3 2.3-3.5 [facility] HospitalAlbumin/Globulin [id number] 05:01:00 * Test Item Value Reference Range Interpretation Comments Albumin/Globulin Ratio (test code = 1759-0) 1.0 0.8-2.0 [facility] HospitalAlkaline [id number] 05:01:00* Test Item Value Reference Range Interpretation Comments Alkaline Phosphatase (test code = 6768-6) 113 40-150 [facility] HospitalWhite Blood [id number] 04:43:00* Test Item Value Reference Range Interpretation Comments White Blood Count (test code = 6690-2) 5.90 4.8-10.8 [facility] HospitalRed Blood [id number] 04:43:00* Test Item Value Reference Range Interpretation Comments Red Blood Count (test code = 789-8) 3.76 4.3-5.7 L [facility] HospitalHemoglobin2018-09-27 04:43:00* Test Item Value Reference Range Interpretation Comments Hemoglobin (test code = 23433-5) 12.2 14.0-18.0 L [facility] HospitalHematocrit2018-09-27 04:43:00* Test Item Value Reference Range Interpretation Comments Hematocrit (test code = 4544-3) 35.9 38.2-49.6 L [facility] HospitalMean Corpuscular Ktpnke3030-92-03 04:43:00* Test Item Value Reference Range Interpretation Comments Mean Corpuscular Volume (test code = 787-2) 95.5 81-99 [facility] HospitalMean Corpuscular [id number] 04:43:00* Test Item Value Reference Range Interpretation Comments Mean Corpuscular Hemoglobin (test code = 785-6) 32.4 28-32 H [facility] HospitalMean Corpuscular Hemoglobin Concent 2018-06-09 04:43:00* Test Item Value Reference Range Interpretation Comments Mean Corpuscular Hemoglobin Concent (test code = 786-4) 34.0 31-35 [facility] HospitalRed Cell Distribution [id number] 04:43:00* Test Item Value Reference Range Interpretation Comments Red Cell Distribution Width (test code = 94981-7) 14.5 11.7 -14.4 H [facility] HospitalPlatelet [id number] 04:43:00* Test Item Value Reference Range Interpretation Comments Platelet Count (test code = 777-3) 147 140-360 [facility] HospitalNeutrophils (%) (Auto)2018-06-09 04:43:00 * Test Item Value Reference Range Interpretation Comments Neutrophils (%) (Auto) (test code = 77910-6) 66.8 38.7-80.0 [facility] HospitalLymphocytes (%) (Auto)2018-06-09 04:43:00 * Test Item Value Reference Range Interpretation Comments Lymphocytes (%) (Auto) (test code = 736-9) 16.1 18.0-39.1 L [facility] HospitalMonocytes (%) (Auto)2018-06-09 04:43:00* Test Item Value Reference Range Interpretation Comments Monocytes (%) (Auto) (test code = 5905-5) 10.0 4.4-11.3 [facility] HospitalEosinophils (%) (Auto)2018-06-09 04:43:00 * Test Item Value Reference Range Interpretation Comments Eosinophils (%) (Auto) (test code = 713-8) 6.3 0.0-6.0 H [facility] HospitalBasophils (%) (Auto)2018-06-09 04:43:00* Test Item Value Reference Range Interpretation Comments Basophils (%) (Auto) (test code = 706-2) 0.5 0.0-1.0 [facility] HospitalIM GRANULOCYTES %2018-06-09 04:43:00* Test Item Value Reference Range Interpretation Comments IM GRANULOCYTES % (test code = IM GRANULOCYTES %) 0.3 0.0- 1.0 [facility] HospitalNeutrophils # (Auto)2018-06-09 04:43:00* Test Item Value Reference Range Interpretation Comments Neutrophils # (Auto) (test code = 751-8) 3.9 2.1-6.9 [facility] HospitalLymphocytes # (Auto)2018-06-09 04:43:00* Test Item Value Reference Range Interpretation Comments Lymphocytes # (Auto) (test code = 17988-4) 1.0 1.0-3.2 [facility] HospitalMonocytes # (Auto)2018-06-09 04:43:00* Test Item Value Reference Range Interpretation Comments Monocytes # (Auto) (test code = 742-7) 0.6 0.2-0.8 [facility] HospitalEosinophils # (Auto)2018-06-09 04:43:00* Test Item Value Reference Range Interpretation Comments Eosinophils # (Auto) (test code = 711-2) 0.4 0.0-0.4 [facility] HospitalBasophils # (Auto)2018-06-09 04:43:00* Test Item Value Reference Range Interpretation Comments Basophils # (Auto) (test code = 704-7) 0.0 0.0-0.1 [facility] HospitalAbsolute Immature Granulocyte (auto 2018-06-09 04:43:00* Test Item Value Reference Range Interpretation Comments Absolute Immature Granulocyte (auto (nicole t code = Absolute Immature Granulocyte (auto) 0.02 0-0.1 [facility] HospitalThyroid Stimulating Hormone (TSH) 2018-06-08 13:20:00* Test Item Value Reference Range Interpretation Comments Thyroid Stimulating Hormone (TSH) (test code = 29871-3) 2.308 0.350-4.940 [facility] HospitalB-Type Natriuretic [id number] 13:03:00* Test Item Value Reference Range Interpretation Comments B-Type Natriuretic Peptide (test code = 87124-2) 1435.0 0-100 H [facility] HospitalCHEST SINGLE (PORTABLE)2018-06-08 12:53:00 [facility] [address] [place] [address] Patient Name: GUDELIA GOODSON MR #: [id number] : 1950 Age/Sex: 67/M Req #: [id number] Adm Physician: Ordered by: KAIT HOANG MD Report #: [id number] Location: ER Room/Bed: Procedure: [id number] DX/CHEST SINGLE (PORTABLE ) Exam Date: Exam Time: REPORT STATUS: Yulia d EXAMINATION: CHEST SINGLE (PORTABLE) INDICATION: S Palpitat ions COMPARISON: None FINDINGS: AP view TUBES and LINES : Right-sided ICD with 3 leads. Median sternotomy wires and mediastinal clips . LUNGS: Lungs are well inflated. There are bibasilar atelectasis. There is mild prominence of the central pulmonary vasculature, consistent with pulmo nary venous congestion. PLEURA: No pleural effusion or pneumothorax. HEART AND MEDIASTINUM: Cardiac size is moderately enlarged. There are ather osclerotic calcifications within the aorta. BONES AND SOFT TISSUES: No acu te osseous lesion. Soft tissues are unremarkable. UPPER ABDOMEN: No free air under the diaphragm. IMPRESSION: Moderate cardiomegaly with mild central pulmonary venous congestion. Signed by: Dr. Saleem Villarreal M.D. on 12:55 PM Dictated By: SALEEM VILLARREAL MD [id number] Transcribed By: IVAN on 06/08/18 1257 COPY TO: KAIT HOANG MD
[2020-05-18] MEDS ORDERED: ETOMIDATE 2 MG/ML 10 ML INJ IV ONE (14:21)
[2020-05-18] MEDS ORDERED: SUCCINYLCHOLINE CHLORIDE 20 MG/ML 10ML VIAL ONE (14:21)
[2020-05-18] MEDS ORDERED: VECURONIUM BROMIDE FOR INJ 20 MG VIAL ONE (14:21)
[2020-05-18 14:43] LABS: BASOPHILS # (AUTO) 0.1 (0.0-0.1); BASOPHILS % 0.6 % (0.0-1.0); EOSINOPHILS # (AUTO) 0.1 (0.0-0.4); EOSINOPHILS % 0.6 % (0.0-6.0); HEMATOCRIT 33.5 % (38.2-49.6); HEMOGLOBIN 11.1 g/dL (14.0-18.0); LYMPHOCYTES # (AUTO) 0.2 (1.0-3.2); LYMPHOCYTES % 1.3 % (18.0-39.1); MEAN CORPUSCULAR HEMOGLOBIN 31.7 pg (28-32); MEAN CORPUSCULAR HGB CONC 33.1 g/dL (31-35); MEAN CORPUSCULAR VOLUME 95.7 fL (81-99); MONOCYTES # (AUTO) 0.5 (0.2-0.8); MONOCYTES % 3.5 % (4.4-11.3); NEUTROPHILS # (AUTO) 12.9 (2.1-6.9); NEUTROPHILS % 91.2 % (38.7-80.0); PLATELET COUNT 129 x10e3/uL (140-360); RED CELL DISTRIBUTION WIDTH 15.3 % (11.7-14.4)
[2020-05-18 14:58] LABS: INR 1.33; PROTHROMBIN TIME 17.1 seconds (11.9-14.5)
[2020-05-18 14:59] LABS: ALBUMIN 3.5 g/dL (3.5-5.0); ALBUMIN/GLOBULIN RATIO 0.9 (0.8-2.0); ANION GAP 28.1 mmol/L (8-16); CALCIUM 8.5 mg/dL (8.4-10.2); CREATININE, SERUM 7.4 mg/dL (0.72-1.25); MAGNESIUM 2.1 MG/DL (1.3-2.1); PARTIAL THROMBOPLASTIN TIME 44.8 seconds (23.8-35.5); POTASSIUM 4.1 mmol/L (3.5-5.1)
[2020-05-18] MEDS ORDERED: DILTIAZEM HCL 5 MG/ML 5 ML VIAL IV NR (15:15)
[2020-05-18 15:19] LABS: THYROID STIMULATING HORMONE 1.878 uIU/mL (0.350-4.940)
[2020-05-18 15:30] LABS: CREATINE KINASE MB 10.4 ng/mL (0-5.0)
[2020-05-18] MEDS ORDERED: METOPROLOL TARTRATE INJ 1 MG/ML VIAL IV ONE (15:45)
--- NOTE | 2020-05-18 15:53 | Diagnostic Imaging Report ---
EXAMINATION: CHEST SINGLE (PORTABLE) INDICATION: NEW AFIB COMPARISON: Chest x-ray dated 06/08/2018. FINDINGS: AP view TUBES and LINES: Right-sided ICD with 3 leads. Median sternotomy wires and mediastinal clips. LUNGS/PLEURA: There is mild prominence of the central pulmonary vasculature, consistent with pulmonary venous congestion. HEART AND MEDIASTINUM: Cardiac size is moderately enlarged, unchanged. BONES AND SOFT TISSUES: Midline sternotomy wires are seen. No acute osseous lesion. Soft tissues are unremarkable. UPPER ABDOMEN: No free air under the diaphragm. IMPRESSION: Moderate cardiomegaly and pulmonary edema, unchanged. Signed by: Wilfrid Womack MD on 05/18/2020 3:49 PM
[2020-05-18 15:57] LABS: BAND NEUTROPHILS % (MANUAL) 6 %; LYMPHOCYTES % (MANUAL) 12 % (19-48); MONOCYTES % (MANUAL) 5 % (3.4-9.0); NEUTROPHILS % (MANUAL) 77 % (40-74)
[2020-05-18 15:58] LABS: HYPOCHROMASIA SLIGHT
[2020-05-18 16:00] LABS: PLATELET ESTIMATE SLIGHTLY DECREASED; PLATELET MORPHOLOGY COMMENT NORMAL
[2020-05-18] MEDS ORDERED: ONDANSETRON HCL INJ 2MG/ML 2ML 2 MG/ML VIAL IV PRN ×2 (16:00→21:30)
[2020-05-18] MEDS ORDERED: MORPHINE SULFATE 2 MG/ML SYR 1ML IV PRN (16:00)
[2020-05-18] MEDS ORDERED: AMIODARONE HCL 150MG 100 ML IV NR (16:00)
[2020-05-18] MEDS ORDERED: NITROGLYCERIN 0.4 MG SUBL SL PRN (16:00)
[2020-05-18] MEDS ORDERED: HEPARIN SOD (PORCINE) 5,000 UNIT/ML VIAL IV NR (16:00)
[2020-05-18] MEDS ORDERED: AMIODARONE HCL 360MG 200 ML IV ONE (16:15)
[2020-05-18] MEDS: FAMOTIDINE 20 MG/2 ML VIAL IV SCH (16:32)
[2020-05-18] MEDS: METOPROLOL TARTRATE 25 MG TAB PO SCH (16:32)
--- OUTSIDE RECORDS SUMMARY | 2020-05-18 16:42 | XMS REPORT | Continuity of Care Document ---
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
--- OUTSIDE RECORDS SUMMARY | 2020-05-18 16:42 | XMS REPORT | Clinical Summary ---
Author Author 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 No answer. Left detailed voicemail message in Iranian.) 07/06/2019 Telephone Transplant Breanna Rouse 07/05/2019 Abstract [...]
--- OUTSIDE RECORDS SUMMARY | 2020-05-18 16:42 | XMS REPORT | Continuity of Care Document ---
Author Author [facility] t Organization [facility] Address [address] [place] [address] Phone Unavailable Care Team Providers Care Employee Benefits Specialist Name Role Phone Ty CLOUD PCP Sheila RITCHIE Attphys Unavailable Jorge DEL CID, Issa Palma Attphys Coby Gutiérrez MA Attphys Unavailable Gely CARBALLO, Shelly Attphys Unavailable Breanna Rouse Attphys Unavailable Ric HOANG Attphys Unavailable Payers Payer Name Policy Type Policy Number Effective Date Expiration Date S latrice MEDICAREMEDICARE PART A AND Bxxxxxxxxxxx2011-Present[facility]arly [place] 2011 00:00:00 [facility] MEDICAREMEDICARE A BxxxxxxxxxxMedicare xxxxxxxxxx [facility] Medicare A & B [id number] 2011 00:00:00 [facility] Problems Condition Name Condition Details Condition Category Status Onset Date Resolution Date Last Treatment Date Treating Clinician Comments Source DM (diabetes mellitus) DM (diabetes mellitus) Disease Active 2013-10-03 00:00:00 [facility] Pre-transplant evaluation for ESRD (end stage renal di sease) Pre-transplant evaluation for ESRD (end stage renal disease) Disease Active 2013-07-25 00:00:00 [facility] Malfunction of cardiac pacemaker Pacemaker malfunction Problem Active [facility] Wide-complex tachycardia Wide-complex tachycardia Problem Active [facility] Hypertension Hypertension Disease Active Manny Chu Hyperlipidemia Hyperlipidemia Disease Active [facility] Angina Priti na Active Problem 04/26/2014 Gila Ceron Ramírezarlene Problem Active 2014-04-26 03:01:36 Christie Calero ESRD (end stage renal disease) on dialysis ESRD (end stage renal disease) on dialysis Active Problem 04/26/2014 Bisiamber Osmany Lund Problem Active 2014-04-26 03:01:36 Christie Calero Mitral valve disorders Mitr al valve disorders Active Problem 04/26/2014 Gila Osmany Ramírezarlene Problem Active 20 26-04-14 03:01:36 Christie Calero CAD (coronary artery disease) of bypass graft CAD (coronary artery disease) of bypass graft Active Problem 04/26/2014 Bisiamber Osmany Lund Problem Active 2014-04-26 03:01:36 Lei Calero Abnormal cardiovascular stress test Abnormal cardiovascular stress test Active Diagnosis 04/26/2014 Gila Lund Diagnosis Active 2014-04-26 03:01:36 Christie Calero CHF Chronic diastolic heart failure CHF Chronic diastolic heart failure Active Problem 04/26/2014 Mohamber Osmany Ramírezranjithdi Problem Active 2014-04-26 03:01:36 Alisa Claero Carotid Bruit Arroyo tid Bruit Active Diagnosis 04/26/2014 Gila Lund Diagnosis Active 2014-04-26 03:01:3 6 Christie Calero Swelling of limb Swel ling of limb Active Problem 04/26/2014 Bisiamber Osmany Lund Problem Active 2014-04-26 03:01:36 [facility] Shortness of breath Shor tness of breath Active Problem 04/26/2014 Gila Lund Problem Active 2014-04-26 03:01:36 [facility] CHF Acute Systolic Heart failure CHF Acute Systolic Heart failure Active Problem 04/26/2014 Gila Lund Problem Active 2014-04-26 03:01:36 [facility] Diabetes with unspecified complication, type II or unspecified type, not stated as uncontrolled Diabetes with un specified complication, type II or unspecified type, not stated as uncontrolled Active Diagnosis 04/26/2014 Gila Lund Diagnosis Active 2014-04-26 03:01:3 6 [facility] Abnormal EKG Abno rmal EKG Active Diagnosis 04/26/2014 Gila Lund Diagnosis Active 2014-04-26 03:01:36 [facility] Allergies, Adverse Reactions, Alerts Allergy Name Allergy Type Status Severity Reaction(s) Onset Date Inacti ve Date Treating Clinician Comments Source No Known Allergies DA Active U 2016-01-23 00:00:00 [facility] N.K.D.A. N.K.D.A. Active Info Not Available 2014-04-19 00:00:00 [facility] Family History Family Member Diagnosis Comments Start Date Stop Date Source Natural brother Coronary artery disease [facility] Natural mother Coronary artery disease [facility] Natural mother Heart attack [facility] Natural sister Coronary artery disease [facility] Natural sister Heart attack [facility] Natural father No Known Problems Yvonne Chu Unknown Family Member Family History 2014-04-26 03:01:36 2 03:01:36 [facility] Social History Social Habit Start Date Stop Date Quantity Comments Source History SDOH Alcohol Std Drinks [facility] History SDOH Alcohol Binge [facility] Sex [facility]igned At [facility] Alcohol intake 2020-01-25 00:00:00 2020-01-25 00:00:00 Lifetime non-drinker (finding) [facility] History SDOH Alcohol Frequency 2019-11-14 00:00:00 2019-11-14 00:00:0 0 1 [facility] Smoking 2014-04-19 00:00:00 2014-04-19 00:00:00 [facility] Smoking Status Start Date Stop Date Source Former smoker 2020-01-25 00:00:00 2020-01-25 00:00:00 Manny Chu Never smoker [facility] Medications Ordered Medication Name Filled Medication [...] Chu Pravastatin Sodium 2014-04-26 03:01:36 Yes Gila Lund 1 tablet [facility] Metoprolol Tartrate 2014-04-26 03:01:36 Yes Gila Castillodi 1 tablet [facility] Clopidogrel Bisulfate 2014-04-26 03:01:36 Yes Gila Michael r[facility]idhi [facility] Benzonatate 2014-04-26 03:01:36 Yes Gila Elmoreoudi 1 capsule as needed [facility] Lisinopril 2014-04-26 03:01:36 Yes Gila Elmoreoudi 1 tablet [facility] GlipiZIDE 2014-04-26 03:01:36 Yes Gila Elmoreoudi 1 tablet [facility] glipiZIDE (GLUCOTROL) 5 MG tablet 2013-10-03 13:41:02 Yes 10mg QD Take 10 mg by mouth daily. [facility] metoprolol (LOPRESSOR) 25 MG tablet 2013-10-03 13:41:02 Yes 25mg QD Take 25 mg by mouth daily. [facility] lisinopril (PRINIVIL,ZESTRIL) 20 MG tablet 2013-10-03 07:28:02 Yes 20mg QD Take 20 mg by mouth daily. [facility] metoprolol (TOPROL-XL) 25 MG 24 hr tablet 2013-10-03 07:28:02 Yes 25mg QD Take 25 mg by mouth daily. [facility] pravastatin (PRAVACHOL) 40 MG tablet 2013-10-03 07:28:01 Ye s 40mg QD Take 40 mg by mouth daily. [facility] clopidogrel (PLAVIX) 75 mg tablet 2013-07-25 11:42:58 Yes 75mg QD Take 75 mg by mouth daily. [facility] valsartan (DIOVAN) 40 MG tablet 2013-07-25 11:42:58 Yes 40mg QD Take 40 mg by mouth daily. [facility] sevelamer (RENVELA) 800 mg tablet 2013-07-25 11:42:58 Yes 800mg Take 800 mg by mouth 3 (three) times daily with meals. [facility] cholecalciferol, vitamin D3, 2,000 unit Cap 2013-07-25 11:42:58 Yes Take by mouth. [facility] Clopidogrel Bisulfate (Clopidogrel) 75 Mg Tablet Clopi dogrel Bisulfate (Clopidogrel) 75 Mg Tablet Yes 75 Daily [facility] Elimilady Melchor Yes 5 Every 12 Hours [facility] Metoprolol Succinate 25 Mg Tab.er.24h Metoprolol Succinate 25 Mg Ta b.er.24h Yes 25 Daily [facility] Pravastatin Sodium 20 Mg Tablet Pravastatin Sodium 20 Mg Tablet Yes 20 [facility] Sevelamer Carbonate (Renvela) 0.8 Gm Powd.pack Sevelam er Carbonate (Renvela) 0.8 Gm Powd.pack Yes 800 Three Times A Day [facility] Aspirin (Aspir 81) 81 Mg Tablet., 81 Mg Oral Aspirin (Aspir 81) 81 Mg Tablet., 81 Mg Oral 2018-06-09 00:00:00 No 81 Da nate [facility] Vital Signs Vital Name Observation Time Observation Value Comments Source Systolic blood pressure 2020-01-25 14:14:00 158 mm[Hg] [facility] Diastolic blood pressure 2020-01-25 14:14:00 55 mm[Hg] [facility] Body height 2020-01-25 14:14:00 162.6 cm [facility] Body weight 2020-01-25 14:14:00 66.225 kg [facility] BMI 2020-01-25 14:14:00 25.06 kg/m2 [facility] Heart rate 2019-11-14 13:57:00 70 /min [facility] Body height 2019-07-05 09:38:00 166.4 cm [facility] Body weight Measured 2019-07-05 09:38:00 64 kg [facility] BMI 2019-07-05 09:38:00 23.11 kg/m2 [facility] Weight 2014-04-19 21:00:00 [facility] Height 2014-04-19 21:00:00 [facility] [place] [facility] Temperature Oral (F) 2014-04-19 21:00:00 97.8 F [facility] Rate 2014-04-19 21:00:00 [facility] Diastolic (mm Hg) 2014-04-19 21:00:00 [facility] Systolic (mm Hg) 2014-04-19 21:00:00 [facility] Procedures Procedure Date / Time Performed Performing Clinician [facility] e LIPID PANEL 2020-01-02 07:37:00 Kevin Patel [facility] TTE COMPLETE, WO CONTRAST, W DOPPLER ([id number]) 2019-12-05 11:2 5:00 Kevin Patel LIPID PANEL 2019-12-05 09:15:00 [facility] ECG 12-LEAD 2019-11-14 14:03:06 [facility] Pat[facility] Plan of Care Planned Activity Planned Date Details Comments Source Future Scheduled Test 2020-06-13 00:00:00 INFLUENZA VACCINE [code = INFLUENZA VACCINE] [facility] Future Scheduled Test 2020-05-14 00:00:00 INFLUENZA VACCINE (#1) [code = INFLUENZA VACCINE (#1)] [facility] 2017 00:00:00 PNEUMOCOCCAL 65+ L OW/MEDIUM RISK (1 of 2 - PCV13) [code = PNEUMOCOCCAL 65+ LOW/MEDIUM RISK (1 of 2 - PCV13)] [facility] Future Scheduled Test 2017 00:00:00 65+ PNEUMOCOCCAL V ACCINE (1 of 2 - PCV13) [code = 65+ PNEUMOCOCCAL VACCINE (1 of 2 - PCV13)] [facility] Future Scheduled Test 2002 00:00:00 COLONOSCOPY SCREEN ING [code = COLONOSCOPY SCREENING] [facility] Scheduled Test 2002 00:00:00 SHINGLES VACCINES (#1) [code = SHINGLES VACCINES (#1)] [facility] Scheduled Test 1962 00:00:00 DIABETIC FOOT EXAM [code = DIABETIC FOOT EXAM] [facility] Scheduled Test 1962 00:00:00 URINE MICROALBUMIN [code = URINE MICROALBUMIN] [facility] Scheduled Test 1952 00:00:00 Screening for taina gnant neoplasm of colon (procedure) [code = 489654219] [facility] Future Scheduled Test 1952 00:00:00 DIABETIC RETINAL E YE EXAM [code = DIABETIC RETINAL EYE EXAM] [facility] Encounters Start Date/Time End Date/Time Encounter Type Admission Type [facility] Care Department Encounter ID Source 2020-01-25 00:00:00 2020-01-25 00:00:[address] [facility] [id number] [facility] 2019-12-21 00:00:00 2019-12-21 00:00:[address] [facility] [id number] [facility] 2019-12-05 00:00:00 2019-12-05 00:00:00 Outpatient [facility] [id number] [facility] 2019-12-05 00:00:00 2019-12-05 00:00:00 Outpatient [facility] [id number] [facility] 2019-11-14 00:00:00 2019-11-14 00:00:00 Outpatient KEVIN PATEL [facility] [id number] [facility] 2019-03-09 02:22:00 2019-03-09 02:22:00 Outpatient [id number] 2019-02-07 07:27:00 2019-02-07 07:27:00 Emergency E [id number] 2018-06-08 14:46:00 2018-06-09 16:26:00 Discharged Inpatient 1 KAIT HOANG [facility] [id number] [facility] 2014-04-19 16:00:00 2014-04-19 16:00:00 [place] [id number] [employer] Results Test Description Test Time Test Comments Results Result Comments Source CHEST SINGLE (PORTABLE) 2020-05-18 15:47:00 [place] [address] Patient Name: GUDELIA GOODSON MR #: [id number] : 1950 Age/Sex: 69/M Req #: [id number] Adm Physician: Ordered by: FATIMAH RITCHIE MD Report #: [id number] Location: ER Room/Bed: Procedure: [id number] DX/CHEST SINGLE (PORTABLE) Exam Date: 05/18/20 Exam Time: 1500 REPORT STATUS: Signed EXAMINATION: CHEST SINGLE (PORTABLE) INDICATION: NEW AFIB COMPARISON: Chest x-ray dated 06/08/2018. FINDINGS: AP view TUBES and LINES: Right-sided ICD with 3 leads. Median sternotomy wires and mediastinal clips. LUNGS/PLEURA: There is mild prominence of the central pulmonary vasculature, consistent with pulmonary venous congestion. HEART AND MEDIASTINUM: Cardiac size is moderately enlarged, unchanged. BONES AND SOFT TISSUES: Midline sternotomy wires are seen. No acute osseous lesion. Soft tissues are unremarkable. UPPER ABDOMEN: No free air under the diaphragm. IMPRESSION: Moderate cardiomegaly and pulmonary edema, unchanged. Signed by: Wilfrid Luna MD on 05/18/2020 3:49 PM Dictated By: WILFRID LUNA MD 48 Transcribed By: IVAN on 05/18/201548 COPY TO: FATIMAH RITCHIE MD Lipid panel 2020-01-03 04:18:00 Test Item Cholesterol, total (test code = 2093-3) 140 mg/dL <200 HDL cholesterol (test code = 2085-9) 43 mg/dL > OR = 40 Triglycerides (test code = 2571-8) 135 mg/dL <150 LDL cholesterol calculated (test code = 13358-6) 75 mg/dL (calc) Reference range: <100 Desirable range <100 mg/dL for primary prevention; <70 mg/dL for patients with CHD or diabetic patients with > or = 2 CHD risk factors. LDL-C is now calculated using the Rodrick-Self calculation, which is a validated novel method providing better accuracy than the Friedewald equation in the estimation of LDL-C. Rodrick SS et al. JOMAR. 2013;310(19): 1739-9627 (http:/ /education.Afraxis.Niko Niko/faq/KLZ715) Cholesterol/HDL ratio (test code = 9830-1) 3.3 <5.0 (calc) Non-HDL cholesterol (test code = 25529-8) 97 <130 mg/dL ( calc) For patients with diabetes plus 1 major ASCVD risk factor, treating to a non-HDL-C goal of <100 mg/dL (LDL-C of <70 mg/dL) is considered a therapeutic option. CELIA (test code = CELIA) FASTING:YESFASTING: YES RAC (test code = RAC) Performing Organization Info rmation: Site ID: RGA Name: [facility] Address: [address] [place] [id number] Director: Pastor Lemon [facility] 12 [id number] 16:12:26* Test Item Value Reference Range Interpretation Comments Ventricular rate (test code = 253) 68 Atrial rate (test code = 255) 68 ND interval (test code = 266) 164 QRSD [...] Biventricular pacemaker detected-Abnormal ECG-No previous ECGs available- [facility] Kinase [id number] 12:56:00* Test Item Value Reference Range Interpretation Comments Creatine Kinase MB (test code = 89249-9) 1.20 0-5.0 [facility] CenterTroponin [id number] 12:56:00* Test Item Value Reference Range Interpretation Comments Troponin I (test code = EOE6022) 0.106 0-0.300 [facility] CenterCreatine Enhygf6292-37-91 12:51:00* Test Item Value Reference Range Interpretation Comments Creatine Kinase (test code = 2157-6) 60 30-200 [facility] CenterActivated Partial Thromboplast Time 2018-06-09 11:15:00* Test Item Value Reference Range Interpretation Comments Activated Partial Thromboplast Time (test code = 06129-5) 61.7 23.8-35.5 H [facility] CenterPhosphorus Isdaz1546-08-71 07:41:00* Test Item Value Reference Range Interpretation Comments Phosphorus Level (test code = GRC5356) 5.3 2.3-4.7 H [facility] CenterMagnesium Favzn5244-18-88 07:41:00* Test Item Value Reference Range Interpretation Comments Magnesium Level (test code = 05903-0) 2.1 1.3-2.1 [facility] Qivbv0236-03-54 05:01:00* Test Item Value Reference Range Interpretation Comments Sodium Level (test code = 2951-2) 139 136-145 [facility] CenterPotassium Fobfi7395-50-79 05:01:00* Test Item Value Reference Range Interpretation Comments Potassium Level (test code = 2823-3) 4.4 3.5-5.1 [facility] CenterChloride Bremv6020-92-89 05:01:00* Test Item Value Reference Range Interpretation Comments Chloride Level (test code = 2075-0) 99 98-107 [facility] CenterCarbon Dioxide Mokej7382-41-07 05:01:00* Test Item Value Reference Range Interpretation Comments Carbon Dioxide Level (test code = 2028-9) 25 22-29 [facility] CenterAnion Erz4400-07-33 05:01:00* Test Item Value Reference Range Interpretation Comments Anion Gap (test code = 78921-4) 19.4 8-16 H [facility] CenterBlood Urea Qwnexnma1736-65-89 05:01:00* Test Item Value Reference Range Interpretation Comments Blood Urea Nitrogen (test code = 3094-0) 32 7-26 H [facility] CenterCreatinine2018-09-27 05:01:00* Test Item Value Reference Range Interpretation Comments Creatinine (test code = 2160-0) 6.38 0.72-1.25 H [facility] CenterBUN/Creatinine Mnjzh2084-08-03 05:01:00* Test Item Value Reference Range Interpretation Comments BUN/Creatinine Ratio (test code = 3097-3) 5 6-25 L [facility] CenterEstimat Glomerular Filtration Rate 2018-06-09 05:01:00* Test Item Value Reference Range Interpretation Comments Estimat Glomerular Filtration Rate (test code = 591730147) 9 >60 L Ranges were taken from the National Kidney Disease Education Program and the [facility] Kidney Foundation literature.Reference ranges:60 or greater: Vpvggr49-85 ( for 3 consecutive months): Chronic kidney disease 15 or less: Kidney failureEnnis Regional Medical CenterGlucose Glnyk5512-20-18 05:01:00* Test Item Value Reference Range Interpretation Comments Glucose Level (test code = KWL8233) 144 74-118 H [facility] CenterCalcium Fkrvk8049-66-90 05:01:00* Test Item Value Reference Range Interpretation Comments Calcium Level (test code = 82946-4) 8.4 8.4-10.2 [facility] CenterTotal Ahzamfovj6201-57-50 05:01:00* Test Item Value Reference Range Interpretation Comments Total Bilirubin (test code = 1975-2) 1.6 0.2-1.2 H [facility] CenterAspartate Amino Transf (AST/SGOT) 2018-06-09 05:01:00* Test Item Value Reference Range Interpretation Comments Aspartate Amino Transf (AST/SGOT) (test code = Aspartate Amino Transf (AST/SGOT)) 33 5-34 [facility] CenterAlanine Aminotransferase (ALT/SGPT) 2018-06-09 05:01:00* Test Item Value Reference Range Interpretation Comments Alanine Aminotransferase (ALT/SGPT) (test code = 1742-6) 30 0-55 [facility] CenterTotal Krtkxpz6736-86-68 05:01:00* Test Item Value Reference Range Interpretation Comments Total Protein (test code = 2885-2) 6.7 6.5-8.1 [facility] CenterAlbumin2018-09-27 05:01:00* Test Item Value Reference Range Interpretation Comments Albumin (test code = 1751-7) 3.4 3.5-5.0 L [facility] CenterGlobulin2018-09-27 05:01:00* Test Item Value Reference Range Interpretation Comments Globulin (test code = 10913-0) 3.3 2.3-3.5 [facility] CenterAlbumin/Globulin Ekgyp6705-80-72 05:01:00 * Test Item Value Reference Range Interpretation Comments Albumin/Globulin Ratio (test code = 1759-0) 1.0 0.8-2.0 [facility] CenterAlkaline Iuufvqaxhkn4780-64-57 05:01:00* Test Item Value Reference Range Interpretation Comments Alkaline Phosphatase (test code = 6768-6) 113 40-150 [facility] CenterWhite Blood Hziju4503-24-85 04:43:00* Test Item Value Reference Range Interpretation Comments White Blood Count (test code = 6690-2) 5.90 4.8-10.8 [facility] CenterRed Blood Ntzmv3934-89-70 04:43:00* Test Item Value Reference Range Interpretation Comments Red Blood Count (test code = 789-8) 3.76 4.3-5.7 L [facility] CenterHemoglobin2018-09-27 04:43:00* Test Item Value Reference Range Interpretation Comments Hemoglobin (test code = 66803-8) 12.2 14.0-18.0 L [facility] CenterHematocrit2018-09-27 04:43:00* Test Item Value Reference Range Interpretation Comments Hematocrit (test code = 4544-3) 35.9 38.2-49.6 L [facility] CenterMean Corpuscular Vyqmwl3844-99-63 04:43:00* Test Item Value Reference Range Interpretation Comments Mean Corpuscular Volume (test code = 787-2) 95.5 81-99 [facility] CenterMean Corpuscular Lhgsuqvyye1613-02-18 04:43:00* Test Item Value Reference Range Interpretation Comments Mean Corpuscular Hemoglobin (test code = 785-6) 32.4 28-32 H [facility] CenterMean Corpuscular Hemoglobin Concent 2018-06-09 04:43:00* Test Item Value Reference Range Interpretation Comments Mean Corpuscular Hemoglobin Concent (test code = 786-4) 34.0 31-35 [facility] CenterRed Cell Distribution Uwcjj6725-92-50 04:43:00* Test Item Value Reference Range Interpretation Comments Red Cell Distribution Width (test code = 82249-4) 14.5 11.7 -14.4 H [facility] CenterPlatelet Nsuyf1993-96-63 04:43:00* Test Item Value Reference Range Interpretation Comments Platelet Count (test code = 777-3) 147 140-360 [facility] CenterNeutrophils (%) (Auto)2018-06-09 04:43:00 * Test Item Value Reference Range Interpretation Comments Neutrophils (%) (Auto) (test code = 13692-9) 66.8 38.7-80.0 [facility] CenterLymphocytes (%) (Auto)2018-06-09 04:43:00 * Test Item Value Reference Range Interpretation Comments Lymphocytes (%) (Auto) (test code = 736-9) 16.1 18.0-39.1 L [facility] CenterMonocytes (%) (Auto)2018-06-09 04:43:00* Test Item Value Reference Range Interpretation Comments Monocytes (%) (Auto) (test code = 5905-5) 10.0 4.4-11.3 [facility] CenterEosinophils (%) (Auto)2018-06-09 04:43:00 * Test Item Value Reference Range Interpretation Comments Eosinophils (%) (Auto) (test code = 713-8) 6.3 0.0-6.0 H [facility] CenterBasophils (%) (Auto)2018-06-09 04:43:00* Test Item Value Reference Range Interpretation Comments Basophils (%) (Auto) (test code = 706-2) 0.5 0.0-1.0 [facility] CenterIM GRANULOCYTES %2018-06-09 04:43:00* Test Item Value Reference Range Interpretation Comments IM GRANULOCYTES % (test code = IM GRANULOCYTES %) 0.3 0.0- 1.0 [facility] CenterNeutrophils # (Auto)2018-06-09 04:43:00* Test Item Value Reference Range Interpretation Comments Neutrophils # (Auto) (test code = 751-8) 3.9 2.1-6.9 [facility] CenterLymphocytes # (Auto)2018-06-09 04:43:00* Test Item Value Reference Range Interpretation Comments Lymphocytes # (Auto) (test code = 75565-7) 1.0 1.0-3.2 [facility] CenterMonocytes # (Auto)2018-06-09 04:43:00* Test Item Value Reference Range Interpretation Comments Monocytes # (Auto) (test code = 742-7) 0.6 0.2-0.8 [facility] CenterEosinophils # (Auto)2018-06-09 04:43:00* Test Item Value Reference Range Interpretation Comments Eosinophils # (Auto) (test code = 711-2) 0.4 0.0-0.4 [facility] CenterBasophils # (Auto)2018-06-09 04:43:00* Test Item Value Reference Range Interpretation Comments Basophils # (Auto) (test code = 704-7) 0.0 0.0-0.1 [facility] CenterAbsolute Immature Granulocyte (auto 2018-06-09 04:43:00* Test Item Value Reference Range Interpretation Comments Absolute Immature Granulocyte (auto (nicole t code = Absolute Immature Granulocyte (auto) 0.02 0-0.1 [facility] CenterThyroid Stimulating Hormone (TSH) 2018-06-08 13:20:00* Test Item Value Reference Range Interpretation Comments Thyroid Stimulating Hormone (TSH) (test code = 01331-6) 2.308 0.350-4.940 [facility] CenterB-Type Natriuretic Qcjlvuv0986-41-03 13:03:00* Test Item Value Reference Range Interpretation Comments B-Type Natriuretic Peptide (test code = 64102-0) 1435.0 0-100 H [facility] CenterCHEST SINGLE (PORTABLE)2018-06-08 12:53:00 [place] [address] Patient Name: GUDELIA GOODSON MR #: [id number] : 1950 Age/Sex: 67/M Req #: [id number] Adm Physician: Ordered by: KAIT HOANG MD Report #: [id number] Location: Room/Bed: Procedure: [id number] DX/CHEST SINGLE (PORTABLE ) Exam Date: Exam [...] 12:55 PM Dictated By: SALEEM VILLARREAL MD 1254 Transcribed By: IVAN on 06/08/18 1253 COPY TO: KAIT HOANG MD
--- OUTSIDE RECORDS SUMMARY | 2020-05-18 16:42 | XMS REPORT | Clinical Summary ---
Author Author [facility] Organization [facility] Address Unknown Phone Unavailable Care Team Providers Care Miller Supervisor Name Role Phone Stephanie Valdez MD PCP [...] CDT Blood Pressure 70 11/14/2019 1:57 PM [employer] ARCHIT[employer] Pulse - - Temperature - - Respiratory Rate - - Oxygen Saturation - - Inhaled Oxygen Concentration 66.2 kg (146 lb) 01/25/2020 2:14 PM CDT Weight 162.6 cm (5' 4") 01/25/2020 2:14 PM CDT Height 25.06 01/25/2020 2:14 PM CDT Body Mass Index Plan of Treatment Care Team Description Date [place] [id number] [address] [phone] 07/30/2020 Office Visit Cardiology Health Maintenance Due [...] ertension CONTRAST, W DOPPLER 11:25 AM CDT ([id number]) LIPID PANEL Routine 12/05/2019 Mixed hyperlipi demia 9:15 AM CDT ECG 12-LEAD Routine 11/14/2019 Essential hyper tension 2:03 PM [employer] ARCHITECT after 05/18/2019 Results * Lipid panel (01/02/2020 7:37 AM CDT) Only the most recent of 2 results within the time period is included. Pathologist [facility] [place] Cholesterol, 140 <200 mg/dL [facility] [place] HDL cholesterol 43 > OR = 40 mg/dL [facility] [place] Triglycerides 135 <150 mg/dL [facility] [place] LDL cholesterol 75 mg/dL (calc) [facility] calculated Comment: DIAGNOSTICS Reference range: <100 [place] Desirable range <100 mg/dL for primary prevention; <70 mg/dL for patients with CHD or diabetic patients with > or = 2 CHD risk factors. LDL-C is now calculated using the Lacy calculation, which is a validated novel method providing better accuracy than the Friedewald equation in the estimation of LDL-C. Rodrick SS et al. JOMAR. 2013;310(19): 1331-5210 (http://education.[employer]/faq/VFM465) Cholesterol/HDL 3.3 <5.0 (calc) [facility] [place] Non-HDL 97 <130 mg/dL (calc) [facility] cholesterol Comment: DIAGNOSTICS For patients with diabetes [place] plus 1 major ASCVD risk factor, treating to a non-HDL-C goal of <100 mg/dL (LDL-C of <70 mg/dL) is considered a therapeutic option. Specimen Blood Narrative Performed At FASTING:YES [facility] FASTING: YES Resulting Agency Comment Performing Organization Information: Site ID: [id number] Name: [facility] Address: [address] [place] [id number] Director: Pastor Lemon Performing Organization Address City/State/Zipcode Ph one Number evolso [address] [phone] * Transthoracic Echocardiogram Complete, (w Contrast, Strain and 3D if needed) (12/05/2019 11:25 AM CDT) Pathologist [facility] [place] Ao Root 3.20 cm [facility] Diameter [...] LV EF,BP 25.48 % [facility] Paulo Gladstone,d A2C 8.89 cm [facility] Paulo Gladstone,d A4C 8.65 cm [facility] Paulo Gladstone,s A2C 7.61 cm [facility] Paulo Gladstone,s A4C 7.76 cm [facility] LV,s 5.24 [...] of a PFO by color Doppler with [id number] shunt, saline contrast injection showed negati ve contrast echo with no evidence of right to left shunting. Average global longitudinal peak str ain of -8.4%. Performing Organization Address [facility] one Number [facility] [address] [place] [address] * ECG 12 lead (11/14/2019 2:03 PM [employer] ARCHITECT) Ventricular 68 [facility] rate Atrial rate 68 [facility] OR interval 164 [facility] QRSD interval 148 [...] is n ot available. Performing Organization Address [facility] one Number H MUSE [address] [place] [address] after 05/18/2019 Insurance Type Payer Benefit Subscriber ID Effective Phone Address Plan / Dates Group Medicare MEDICARE MEDICARE xxxxxxxxxxx 2011-P SISSY, PART A AND [facility] [place] B Advance Directives For more information, please contact: [phone] Patient Picker Box Operator Explanation Type Date Recorded Advance Directives, Living Will and Medical Power of Contract Modeler
--- NOTE | 2020-05-18 17:13 | Consultation ---
DATE OF CONSULTATION: Pulmonary Critical Care Consultation CHIEF COMPLAINT: Atrial fibrillation, nausea, and vomiting. HISTORY OF PRESENT ILLNESS: The patient is a 69-year-old man. He has a history of end-stage renal disease as well as type 2 diabetes. The patient had missed his dialysis session on , two days ago because he had nausea and vomiting. He is rescheduled for dialysis today, but became tachycardic and had rapid atrial fibrillation. The dialysis center sent the patient to the hospital. PAST SURGICAL HISTORY: 1. Status post coronary artery bypass grafting. 2. Status post pacemaker. 3. Status post AV fistula for dialysis. PAST MEDICAL HISTORY: 1. End-stage renal disease. 2. Diabetes. 3. Hypertension. ALLERGIES: NO KNOWN DRUG ALLERGIES. SOCIAL HISTORY: The patient is not a smoker or drinker. FAMILY HISTORY: Family history is noncontributory. REVIEW OF SYSTEMS: The patient denies any fever. He has no headache. He is not complaining of any neck pain. He has no chest pain. He has noted some palpitations. He does complain of nausea and vomiting as well as abdominal pain. He has no leg edema. PHYSICAL EXAMINATION: VITAL SIGNS: The patient is afebrile. The blood pressure is 117/77. Saturation is 100%. The pulse is 140-150. It is irregularly irregular rhythm. ABDOMEN: Soft, nontender. There is mild distention. There is no rebound or guarding. EXTREMITIES: No leg edema or calf tenderness. There is no cyanosis or clubbing. SKIN: No rashes. NEUROLOGICAL: No focal abnormalities. LABORATORY DATA: BUN to creatinine ratio is 36 to 7.4. The carbon dioxide is 18 and the other electrolytes are significant for sodium of 134 and potassium of 4.1. Troponin I is elevated at 7.39. Total bilirubin is 2.2 and the alkaline phosphatase is 207. RADIOGRAPHIC DATA: Chest x-ray shows moderate cardiomegaly with pulmonary edema. IMPRESSION: 1. Atrial fibrillation with rapid ventricular response. 2. Elevated troponin I probably related to myocardial ischemia from decreased blood flow. 3. End-stage renal disease with signs of uremia. 4. Metabolic acidosis. 5. Nausea, vomiting, and abdominal distention. 6. Thrombocytopenia. 7. Anemia. PLAN: 1. The patient will be admitted to intensive care unit. 2. Amiodarone. 3. The patient is to receive dialysis today. 4. Zofran for nausea and vomiting. 5. Abdominal ultrasound. MD LAQUITA Montana/AVI /[id number]
[2020-05-18] MEDS: HEPARIN 25,000 UNIT 800 UNIT in DEXTROSE 5% 250ML 250 ML IV SCH (17:17)
--- NOTE | 2020-05-18 17:22 | Emergency Department Note ---
History of Present Illnes History of Present Illness Chief Complaint: General Medicine Complaints History of Present Illness This is a 69 year old male Comment pt has no complaints. pt states he went to go to dialysis today and they told him to come to er because his "heart beat is too high." pt does have a pacemaker he said was placed for bradycardia. pt is aaox4. pt ambulatory/wc. pt denies any cp no sob. pt c/o of chills, but states no fevers. no covid testing. no resp distress no s/s resp distress noted. pt has left arm av graft for dialysis. pt m/w/f. pt did 2 hrs yesterday and was to go today for 3 more hours. Historian: Patient, Family Member Arrival Mode: Car Manager Banking Required: No Onset (how long ago): hour(s) Radiation: Reports non-radiation Severity: mild Onset quality: unable to specify Chronicity: new Context: Denies recent illness Relieving factors: none Exacerbating factors: none Associated symptoms: Reports denies other symptoms; Denies chest pain, Denies shortness of breath Past Medical/Family History Physician Review I have reviewed the patient's past medical and family history. Any updates have been documented here. Past Medical History Recent Fever: No Clinical Suspicion of Infectio: No New/Unexplained Change in Ment: No Past Medical History: Hypertension, Diabetes, A-Fib, ESRD, Hemodyalisis Past Surgical History: Pacer/AICD Other Surgery: LEFT LOWER FISTULA Social History Smoking Cessation: Never Smoker Counseling Performed: No Alcohol Use: None Any Illegal Drug Use: No TB Exposure/Symptoms: No Physically hurt or threatened: No Family History Family history of heart diseas: No Other Last Tetanus: UTD Any Pre-Existing Lines (PICC,: Yes (hd access to left arm) Review of Systems Review of Systems Constitutional: Reports no symptoms EENTM: Reports no symptoms Cardiovascular: Reports as per HPI Respiratory: Reports no symptoms Gastrointestinal: Reports no symptoms Genitourinary: Reports no symptoms Musculoskeletal: Reports no symptoms Integumentary: Reports no symptoms Neurological: Reports no symptoms Psychological: Reports no symptoms Endocrine: Reports no symptoms Hematological/Lymphatic: Reports no symptoms Physical Exam Related Data Allergies: Coded Allergies: No Known Allergies (Unverified , 06/08/18) Triage Vital Signs Vital Signs Date Time Temp Pulse Resp B/P (MAP) Pulse Ox O2 Delivery O2 Flow Rate FiO2 05/18/20 13:48 97.7 144 16 137/99 100 Room Air Vital signs reviewed: Yes Physical Exam CONSTITUTIONAL Constitutional: Present well-developed, Present well-nourished HENT HENT: Present normocephalic, Present atraumatic, Present oropharynx clear/moist, Present nose normal HENT L/R: Present left ext ear normal, Present right ext ear normal EYES Eyes: Reports PERRL, Reports conjunctivae normal NECK Neck: Present ROM normal PULMONARY Pulmonary: Present effort normal, Present rales (BIBASILAR) CARDIOVASCULAR Cardiovascular: Present irregular rhythm, Present heart sounds normal, Present tachycardia, Present LLE edema, Present RLE edema GASTROINTESTINAL Abdominal: Present soft, Present nontender, Present bowel sounds normal GENITOURINARY Genitourinary: Present exam deferred SKIN Skin: Present warm, Present dry MUSCULOSKELETAL Musculoskeletal: Present ROM normal, Present edema NEUROLOGICAL Neurological: Present alert, Present oriented x 3, Present no gross motor or sensory deficits PSYCHOLOGICAL Psychological: Present mood/affect normal, Present judgement normal Results Laboratory Result Diagram: 05/18/20 1407 05/18/20 1407 Laboratory Laboratory Tests Test 05/18/20 14:07 White Blood Count 14.09 x10e3/uL (4.8-10.8) Red Blood Count 3.50 x10e6/uL (4.3-5.7) Hemoglobin 11.1 g/dL (14.0-18.0) Hematocrit 33.5 % (38.2-49.6) Mean Corpuscular Volume 95.7 fL (81-99) Mean Corpuscular Hemoglobin 31.7 pg (28-32) Mean Corpuscular Hemoglobin Concent 33.1 g/dL (31-35) Red Cell Distribution Width 15.3 % (11.7-14.4) Platelet Count 129 x10e3/uL (140-360) Neutrophils (%) (Auto) 91.2 % (38.7-80.0) Lymphocytes (%) (Auto) 1.3 % (18.0-39.1) Monocytes (%) (Auto) 3.5 % (4.4-11.3) Eosinophils (%) (Auto) 0.6 % (0.0-6.0) Basophils (%) (Auto) 0.6 % (0.0-1.0) Neutrophils # (Auto) 12.9 (2.1-6.9) Lymphocytes # (Auto) 0.2 (1.0-3.2) Monocytes # (Auto) 0.5 (0.2-0.8) Eosinophils # (Auto) 0.1 (0.0-0.4) Basophils # (Auto) 0.1 (0.0-0.1) Absolute Immature Granulocyte (auto 0.40 x10e3/uL (0-0.1) Differential Total Cells Counted 100 Neutrophils % (Manual) 77 % (40-74) Band Neutrophils % 6 % Lymphocytes % (Manual) 12 % (19-48) Monocytes % (Manual) 5 % (3.4-9.0) Platelet Estimate Slightly decreased Platelet Morphology Comment Normal Hypochromasia Slight Prothrombin Time 17.1 seconds (11.9-14.5) Prothromb Time International Ratio 1.33 Activated Partial Thromboplast Time 44.8 seconds (23.8-35.5) Sodium Level 134 mmol/L (136-145) Potassium Level 4.1 mmol/L (3.5-5.1) Chloride Level 92 mmol/L (98-107) Carbon Dioxide Level 18 mmol/L (22-29) Anion Gap 28.1 mmol/L (8-16) Blood Urea Nitrogen 36 mg/dL (7-26) Creatinine 7.40 mg/dL (0.72-1.25) Estimat Glomerular Filtration Rate 7 ML/MIN (60-) BUN/Creatinine Ratio 5 (6-25) Glucose Level 399 mg/dL (74-118) Calcium Level 8.5 mg/dL (8.4-10.2) Magnesium Level 2.1 MG/DL (1.3-2.1) Total Bilirubin 2.2 mg/dL (0.2-1.2) Aspartate Amino Transf (AST/SGOT) 62 IU/L (5-34) Alanine Aminotransferase (ALT/SGPT) 56 IU/L (0-55) Alkaline Phosphatase 207 IU/L (40-150) Creatine Kinase 221 IU/L (30-200) Creatine Kinase MB 10.40 ng/mL (0-5.0) Troponin I 7.398 ng/mL (0-0.300) B-Type Natriuretic Peptide 4564.3 pg/mL (0-100) Total Protein 7.4 g/dL (6.5-8.1) Albumin 3.5 g/dL (3.5-5.0) Globulin 3.9 g/dL (2.3-3.5) Albumin/Globulin Ratio 0.9 (0.8-2.0) Thyroid Stimulating Hormone (TSH) 1.878 uIU/mL (0.350-4.940) Lab results reviewed: Yes Imaging Imaging results reviewed: Yes Procedures 12 Lead ECG Interpretation ECG Interpretation : ECG: ECG 1 Manager Banking: Interpreted by ED physician Date: May 18, 2020 Time: 13:59 Rhythm: atrial fibrillation (AND INTERMITTENTLY PACED) Rate: tachycardia BPM: 128 Conduction: right bundle branch block T wave inversion: II, III, aVR, aVL, V1, V2, V3, V4, V5, V6 Q waves: III, aVF Clinical Impression: abnormal ECG Critical Care Time Total Critical Care Time (min): 45 Critcal care necessary due to: cardiac failure Critcal care time spent by me: blood dram for specimens, discussion w consultants, discussion w primary provider, evaluation patient response to tx, order/perform tx or interventions, order/review laboratory studies, order/review radiographic studies, pulse oximetry, re-evaluation of patient condition Assessment & Plan Medical Decision Making MDM CBC, CHEM, ECG, CARDIAC ENZYMES, BNP, CXR - R/O STEMI/NSTEMI, ELECTROLYTE ABNL, PNEUMONIA, COVID Reassessment Reassessment TROPONIN POSITIVE - SPOKE WITH DR Alejandro CABAN, DR Erick JOHNSON, DR PATEL, AND DR Karly ALEX AFIB RVR - INITIALLY GAVE DILTIAZEM WITHOUT EFFECT, THEN METOPROLOL. WHEN TROP CAME BACK POSITIVE, I ORDERED AMIODARONE Assessment & Plan Final Impression: (1) Atrial fibrillation with RVR (2) ESRD (end stage renal disease) on dialysis (3) NSTEMI (non-ST elevated myocardial infarction) (4) CHF (congestive heart failure) Depart Disposition: ADMITTED Last Vital Signs Date Time Temp Pulse Resp B/P (MAP) Pulse Ox O2 Delivery O2 Flow Rate FiO2 05/18/20 16:32 129 126/75 05/18/20 15:32 25 100 Room Air 05/18/20 14:14 98.1 Home Meds Reported Medications [Eliquis] No Conflict Check, 5 MG PO Q12H 06/09/18 Sevelamer Carbonate (RENVELA) 0.8 Gm Powd.pack, 800 MG PO TID 06/08/18 Pravastatin Sodium (PRAVASTATIN SODIUM) 20 Mg Tablet, 20 MG PO 06/08/18 Metoprolol Succinate (METOPROLOL SUCCINATE) 25 Mg Tab.er.24h, 25 MG PO DAILY 06/08/18 Clopidogrel Bisulfate (CLOPIDOGREL) 75 Mg Tablet, 75 MG PO DAILY, #30 TAB 06/08/18 Medications in the ED Diltiazem HCl 10 mg NOW IV Last administered on 05/18/20at 15:21; Admin Dose 10 MG; Start 05/18/20 at 15:15; Stop 05/18/20 at 16:02; Status DC Metoprolol Tartrate 2.5 mg ONCE ONCE IV Last administered on 05/18/20at 15:32; Admin Dose 2.5 MG; Start 05/18/20 at 15:45; Stop 05/18/20 at 15:46; Status DC Amiodarone HCl 100 ml @ 600 mls/hr ONCE IV Last administered on 05/18/20at 16:00; Admin Dose 600 MLS/HR; Start 05/18/20 at 16:00; Stop 05/18/20 at 16:59; Status DC Heparin Sodium (Porcine) 3,800 unit ONCE IV ; Start 05/18/20 at 16:00; Stop 05/18/20 at 17:00; Status DC Heparin Sodium/ Dextrose 800 unit/ Dextrose 250 ml @ 0 mls/hr TITRATE IV ; Start 05/18/20 at 16:00; Stop 05/25/20 at 15:59 Metoprolol Tartrate 25 mg Q12H PO Last administered on 05/18/20at 16:32; Admin Dose 25 MG; Start 05/18/20 at 16:00; Stop 06/17/20 at 15:59 Nitroglycerin 0.4 mg Q5M PRN SL CHEST PAIN; Start 05/18/20 at 16:00 Morphine Sulfate 2 mg Q3H PRN IV MODERATE PAIN (4-6); Start 05/18/20 at 16:00; Stop 05/25/20 at 15:59 Famotidine 20 mg Q12H IV Last administered on 05/18/20at 16:32; Admin Dose 20 MG; Start 05/18/20 at 16:00; Stop 06/17/20 at 15:59 Ondansetron HCl 4 mg Q4H PRN IV NAUSEA AND VOMITING; Start 05/18/20 at 16:00; Stop 06/17/20 at 15:59 FATIMAH RITCHIE MD May 18, 2020 17:22
[2020-05-18] MEDS ORDERED: AMIODARONE HCL 360MG 200 ML IV SCH (18:00)
[2020-05-18] MEDS ORDERED: ZOLPIDEM TARTRATE 5 MG TAB PO PRN (21:00)
--- NOTE | 2020-05-18 21:23 | NUR ---
H&P cc: N/V HPI: 69yoM, PCP unknown, developed intractable N/V, found to have NSTEMI and be in A.fib with RVR. Pt is a poor historian. PMH: A.fib s/p PPM, CAD s/p CABG, ESRD on HD, Hypertensive heart ds, Chr Systolic CHF, AOCD, Secondary hyperparathroidism PSHx: PPM, CABG, AV fistula Allergies; see emr FH/SH; unknown Meds; see MAR ROS: unreliable v/s; revd PE anxious appearing anicteric ns1s2 reduced bs soft nt nd no e/t skin dry flat affect awake; carballo labs/meds revd A/P: 69yoM A.fib with RVR- IV amio/BB/AC Intractable N/V- antiemetics NSTEMI- heparin; hold statin with elevated liver fn; ASA+plavix; cardio eval; echo; check lipids. Acute on Chr Systolic CHF- HD for fluid removal Pulmonary edema- as above CAD with hx CABG- cont BB ESRD - HD per nephr Hypertensive heart ds- cont BB Hyperbilirubinemia- f/u COVID testing Transaminitis- as above Thrombocytopenia- monitor on AC AOCD- monitor on AC Secondary hyperparathyroidism Prop: AC Dispo: cct>35mins. f/u COVID testing; HD; antiemetics; AV blockade MELVA MENDEZ MD, PHD.
[2020-05-18 21:30] VITALS: BP 99/68
[2020-05-18] MEDS ORDERED: DOCUSATE SODIUM 100 MG CAP PO PRN (21:30)
--- NOTE | 2020-05-18 21:40 | Diagnostic Imaging Report ---
EXAM: Right Upper Quadrant Ultrasound INDICATION: ^abdominal distention COMPARISON: None. TECHNIQUE: Transverse and longitudinal images of the right upper abdomen were obtained. FINDINGS: Very limited study. Patient could not stay still or hold breath due to pain. Liver: Size: 14.8 cm in the right midclavicular line, normal Appearance: Normal echogenicity, mildly nodular contour Mass: No focal masses Gallbladder: Not visualized. Bile Ducts: Intrahepatic Ducts: No dilatation Extrahepatic Ducts: Common bile duct measures 0.4 cm, no dilatation Pancreas: Visualized pancreas is unremarkable. Right Kidney: Size: 10.6 cm Echogenicity: Increased Parenchymal thickness: Normal Collecting system: No hydronephrosis Stones: None Cyst/Mass: Tiny cysts, the largest in the midpole. Vessels: Aorta: Visualized portions are normal Inferior Vena Cava: Visualized portions are normal Main Portal Vein: 0.7 cm, normal size with hepatopetal flow. Free Fluid: No ascites or pleural effusion IMPRESSION: Very limited study as above. Gallbladder is not clearly visualized, limiting evaluation. Mildly nodular liver contour, suggestive of cirrhotic changes. Echogenic right kidney, representing medical renal disease. Signed by: Dr. Harsh Ferrell MD on 05/18/2020 9:37 PM
[2020-05-18 22:00] VITALS: BP 99/68
[2020-05-18] MEDS: PRAVASTATIN 20 MG TAB PO SCH (22:23)
[2020-05-18] MEDS: AMIODARONE HCL 360MG 200 ML IV SCH (22:31)
[2020-05-18] MEDS ORDERED: AMIODARONE 900MG 500 ML IV ONE (22:44)
[2020-05-18 22:45] VITALS: BP 105/71
[2020-05-18 23:00] VITALS: BP 100/66
[2020-05-19] VITALS (25 sets, daily range): BP systolic 76–143; BP diastolic 50–75
[2020-05-19 02:13] LABS: CREATINE KINASE MB 9.4 ng/mL (0-5.0)
[2020-05-19 02:31] LABS: CHOLESTEROL 83 MD/DL (0-199); TRIGLYCERIDES 309 MG/DL (0-149)
[2020-05-19 02:33] LABS: HDL CHOLESTEROL < 5 MG/DL (40-60); LDL CHOLESTEROL 16 MG/DL (60-130)
[2020-05-19] MEDS: FAMOTIDINE 20 MG/2 ML VIAL IV SCH ×2 (04:00→16:55)
[2020-05-19] MEDS: METOPROLOL TARTRATE 25 MG TAB PO SCH ×2 (04:00→15:50)
--- NOTE | 2020-05-19 07:50 | NUR ---
Notified Dr Reyes of elevated Troponin. pt still AFIB RVR, on vent mask fio2 40%, 12L sat 100%. report given to the oncoming RN
[2020-05-19 07:54] LABS: BASOPHILS # (AUTO) 0.1 (0.0-0.1); BASOPHILS % 0.5 % (0.0-1.0); HEMATOCRIT 32.9 % (38.2-49.6); HEMOGLOBIN 10.8 g/dL (14.0-18.0); LYMPHOCYTES # (AUTO) 0.2 (1.0-3.2); LYMPHOCYTES % 1.4 % (18.0-39.1); MEAN CORPUSCULAR HEMOGLOBIN 31.7 pg (28-32); MEAN CORPUSCULAR HGB CONC 32.8 g/dL (31-35); MEAN CORPUSCULAR VOLUME 96.5 fL (81-99); MONOCYTES # (AUTO) 0.6 (0.2-0.8); MONOCYTES % 4.6 % (4.4-11.3); NEUTROPHILS # (AUTO) 10.8 (2.1-6.9); PLATELET COUNT 118 x10e3/uL (140-360); RED BLOOD COUNT 3.41 x10e6/uL (4.3-5.7); RED CELL DISTRIBUTION WIDTH 15.7 % (11.7-14.4)
[2020-05-19 07:59] LABS: ALBUMIN 3.2 g/dL (3.5-5.0); ANION GAP 30.1 mmol/L (8-16); CALCIUM 8.2 mg/dL (8.4-10.2); CREATININE, SERUM 7.91 mg/dL (0.72-1.25); POTASSIUM 4.1 mmol/L (3.5-5.1)
[2020-05-19] MEDS: CLOPIDOGREL BISULFATE 75 MG TAB PO SCH (09:00)
[2020-05-19] MEDS ORDERED: ASPIRIN 81 MG ENTERIC COATED PO SCH (09:00)
[2020-05-19] MEDS: SEVELAMER CARBONATE 800 MG TAB PO SCH ×3 (09:00→21:00)
[2020-05-19 09:02] LABS: BAND NEUTROPHILS % (MANUAL) 2 %; LYMPHOCYTES % (MANUAL) 2 % (19-48); MONOCYTES % (MANUAL) 8 % (3.4-9.0); NEUTROPHILS % (MANUAL) 88 % (40-74); PLATELET ESTIMATE ADEQUATE; PLATELET MORPHOLOGY COMMENT NORMAL; RBC MORPHOLOGY COMMENT NORMAL
--- NOTE | 2020-05-19 09:06 | NUR ---
IM- progress note O/N see below ROS: unreliable v/s; revd PE anxious appearing anicteric ns1s2 reduced bs soft nt nd no e/t skin dry flat affect awake; carballo labs/meds revd A/P: 69yoM A.fib with RVR- IV amio/BB/AC Intractable N/V- antiemetics NSTEMI- heparin; hold statin with elevated liver fn; ASA+plavix; cardio eval; echo; check lipids. Acute on Chr Systolic CHF- HD for fluid removal Pulmonary edema- as above CAD with hx CABG- cont BB ESRD - HD per nephr Hypertensive heart ds- cont BB Hyperbilirubinemia- f/u COVID testing Transaminitis- as above Thrombocytopenia- monitor on AC AOCD- monitor on AC Secondary hyperparathyroidism Prop: AC Dispo: cct>35mins. f/u COVID testing; HD; antiemetics; AV blockade 9-6-20 HTG; Tn increased to 9; possible cirrhosis; A.fib with RVR- cardioversion pending; Right foot great toe Infection/DFU - IV abx; podiatry consult; cct>35mins MELVA MENDEZ MD, PHD.
[2020-05-19] MEDS ORDERED: VANCOMYCIN 1GM/NS 250 ML 250 ML IV ONE (11:00)
--- NOTE | 2020-05-19 11:17 | NUR ---
Pt noted to be more lethargic this morning. Axillary Temperature 103.3. MD Gupta notified. RN also notified MD Gupta of increase in oxygen demands over night. Pt also did not receive dialysis over night. MD Gupta placed new orders. RT at bedside to draw ABG. MD Norris notified of changes and ordered STAT dialysis. RN notified dialysis center at 1110 of need for STAT dialysis. RN will continue to monitor closely for changes.
[2020-05-19] MEDS ORDERED: LACTATED RINGER'S 500 ML INJ ONE (11:30)
--- NOTE | 2020-05-19 11:35 | Progress Note ---
DATE: SUBJECTIVE: The patient now requiring more oxygen. Early this morning, his oxygen was increased from 5 L to a Venti mask at 40%. He has less responsive this morning. He was afebrile during the night, but this morning his temperature is 103.3. He remains in atrial fibrillation. His heart rate is 130-140. He is still on an amiodarone drip. His CO2 is 15 and the is having worsening uremia clinically. Nephrology was consulted and will begin dialysis this morning. PHYSICAL EXAMINATION: VITAL SIGNS: The patient is febrile to 103.3, the blood pressure is 109/66, heart rate is 130-145, and saturation is 100%. HEENT: Shows no facial swelling or erythema. LYMPHATIC: Shows no submandibular, cervical, or supraclavicular adenopathy. CARDIAC: Reveals irregularly irregular rhythm with normal S1, S2. LUNGS: Auscultation of lungs reveals rhonchorous breath sounds bilaterally. There is no wheezing. ABDOMEN: Soft and nontender. There is no rebound or guarding. EXTREMITIES: Shows no leg edema or calf tenderness. There is no cyanosis or clubbing. SKIN: Shows no rashes. NEUROLOGICAL: Shows the patient to be less responsive, although he is arousable. He does not interact well. LABORATORY DATA: BUN to creatinine ratio is 45 to 7.91 with a CO2 of 15, chloride of 9 and a sodium of 131. Troponin I is 9.6. The white blood cell count is 11.8, hemoglobin is 10.8, and the platelet count is 118,000. IMPRESSION: 1. Uremia with worsening responsiveness and worsening acidosis. 2. Metabolic encephalopathy. 3. Fever and sepsis, present on admission with unknown source. 4. Myocardial infarction secondary to demand ischemia. 5. Thrombocytopenia. 6. Metabolic acidosis. 7. Anemia. PLAN: 1. The patient is scheduled to receive his dialysis GHISLAINE. 2. The patient will have blood cultures, urine culture, and chest x-ray and lactic acid. 3. IV fluids. 4. Vancomycin and meropenem. 5. Cardiology has evaluated the patient and increased his amiodarone slightly. 6. Await abdominal ultrasound. 7. Case discussed with Nursing, Respiratory, Cardiology, Nephrology, and Internal Medicine. 8. Greater than 35 minutes in direct critical care time. MD LAQUITA Montana/AVI /[id number]
[2020-05-19 12:06] LABS: ABG HCO3 21 mmol/L (22-26); ABG PCO2 30 mmHg (35-45); ABG PH 7.46 (7.35-7.45); ABG PO2 124 mmHg (80-105); ABG TCO2 21
--- NOTE | 2020-05-19 12:49 | Diagnostic Imaging Report ---
EXAMINATION: CHEST SINGLE (PORTABLE) INDICATION: fever COMPARISON: Multiple prior chest x-ray examinations most recent dated 05/18/2020. FINDINGS: AP view TUBES and LINES: AICD is intact. . LUNGS/PLEURA: Lungs are well inflated. There are bilateral interstitial opacities likely representing pulmonary edema, increased from prior exam.. There is no pleural effusion or pneumothorax. HEART AND MEDIASTINUM: Cardiac size is moderately enlarged. BONES AND SOFT TISSUES: There are median sternotomy wires. No acute osseous lesion. Soft tissues are unremarkable. UPPER ABDOMEN: No free air under the diaphragm. IMPRESSION: Cardiomegaly with pulmonary edema, increased from prior exam. Superimposed pneumonia could be considered in appropriate clinical setting. Signed by: Wilfrid Womack MD on 05/19/2020 12:46 PM
[2020-05-19] MEDS ORDERED: SODIUM CHLORIDE 0.9% 1000ML 2,000 ML IV PRN (13:30)
[2020-05-19] MEDS ORDERED: MEROPENEM 1GM 100 ML IV SCH (14:00)
--- NOTE | 2020-05-19 14:16 | Operative Report ---
DATE OF PROCEDURE: SURGEON: Tomas Gupta MD PROCEDURE: Central line placement under ultrasound guidance. PREOPERATIVE DIAGNOSIS: Renal failure. POSTOPERATIVE DIAGNOSIS: Renal failure. CONSENT: Consent was obtained from the family. MEDICATIONS: 1% lidocaine for local anesthesia. PROCEDURE IN DETAIL: The right neck was prepped sterilely with chlorhexidine. A 1% lidocaine was used to anesthetize the area between the heads of the sternocleidomastoid. A 16-gauge needle was used to cannulate the right internal jugular vein under direct visualization. A wire was passed through the needle. A dilator was used to open the skin and a triple-lumen catheter was placed over the dilator by the Seldinger technique. All the ports flushed. COMPLICATIONS: None. ESTIMATED BLOOD LOSS: None. Tomas Gupta MD [facility]/MODL /[id number]
--- NOTE | 2020-05-19 14:26 | NUR ---
Heparin changed to 700unit/hr (7mL/hr) per protocol. Witnessed by Coretta CARBALLO.
[2020-05-19] MEDS ORDERED: ALBUMIN 25% 12.5GM 0.25 GM/ML BTL IV NR (14:30)
[2020-05-19 15:14] LABS: CREATINE KINASE MB 6.5 ng/mL (0-5.0)
[2020-05-19] MEDS ORDERED: FENTANYL CITRATE/PF 100MCG/2 ML INJ ONE (15:23)
[2020-05-19] MEDS ORDERED: DEXTROSE 50% SYRINGE 50 ML IV PRN (15:30)
[2020-05-19] MEDS: MEROPENEM 500MG/ NS 50ML 100 ML IV SCH ×2 (15:41→21:16)
[2020-05-19] MEDS: VASOPRESSIN 60 UNIT in DEXTROSE 5% 50ML 57 ML IV PRN (15:41)
[2020-05-19] MEDS ORDERED: FENTANYL CITRATE/PF 100MCG/2 ML INJ IV NR (15:45)
--- NOTE | 2020-05-19 15:45 | NUR ---
RN at bedside to start dialysis. Pt blood pressure starting to drop. MD Gupta at bedside and discussed with MD Chris about risk/benefit of dialysis. MD Gupta discussing elevated heart rate with MD Reyes and he came to bedside to cardiovert. Patient was given 50mcg of Fentanyl and cardioverted with 120J by MD Reyes. Pt converted to a paced rhythm of about 80-90 BPM. MD Reyes, Candy and Dot all at bedside. Pt tolerated well. Addendum: 05/19/20 at 1549 by Sena Hobbs RN Pt was also started on Vasopressin for low blood pressure and Echo being performed at bedside.
[2020-05-19 15:53] LABS: ANION GAP 25.7 mmol/L (8-16); CALCIUM 7.8 mg/dL (8.4-10.2); CREATININE, SERUM 7.5 mg/dL (0.72-1.25); POTASSIUM 3.7 mmol/L (3.5-5.1)
[2020-05-19] MEDS ORDERED: SODIUM CHLORIDE 0.9% 500ML 500 ML IV ONE (16:15)
[2020-05-19] MEDS ORDERED: SODIUM BICARBONATE 4.2% 10 ML SYRINGE IV ONE (16:45)
[2020-05-19] MEDS: INSULIN REGULAR, HUMAN 100 UNIT/1 ML 3ML VIAL SQ SCH ×2 (16:47→22:39)
[2020-05-19] MEDS: HEPARIN 25,000 UNIT 800 UNIT in DEXTROSE 5% 250ML 250 ML IV SCH (17:18)
[2020-05-19] MEDS ORDERED: ACETAMINOPHEN 325 MG SUPP PR PRN (17:30)
[2020-05-19] MEDS: SODIUM BICARBONATE INJ 150 ML in DEXTROSE 5% 1,000 ML IV SCH (17:50)
[2020-05-19] MEDS: AMIODARONE HCL 360MG 200 ML IV SCH (17:50)
--- NOTE | 2020-05-19 18:14 | NUR ---
PER MD JOHNSON- BP GOAL MAP >60
--- NOTE | 2020-05-19 18:16 | Consultation ---
DATE OF CONSULTATION: 05/19/2020 HISTORY OF PRESENT ILLNESS: A 69-year-old gentleman known to our Nephrology Service. He has underlying end-stage renal disease, underlying atherosclerotic cardiovascular disease, status post AICD, history of ischemic cardiomyopathy, hypertension, and type 2 diabetes, presented to the emergency room with atrial fibrillation and rapid ventricular rate, seen by Dr. Jayce Reyes. Has had prior coronary artery bypass surgery, type 2 diabetes, and hypertension. Currently, he is on 40% Venti mask. He is barely arousable. Shallow breathing with O2 saturations 100%. Systolic blood pressures in the 80s and 90s. Renal consulted for management of kidney failure. He has been started on IV amiodarone, but the heart rate remains in the 140s with sometimes the pacemaker picking it up and he will have runs of trigeminy and bigeminy in between. White count is 11.8 with a chemistry showing sodium 131, potassium 4.1, bicarbonate 15, anion gap 30, BUN 45, creatinine 7.91, and blood sugar 386. These labs were done at 1:20 a.m. this morning. CK was 239. Troponin I 9.6. ALLERGIES: NO APPARENT DRUG ALLERGIES. CURRENT MEDICATIONS: On IV amiodarone drip, received dose of IV vancomycin. He also received LR one time dose, which I am going to stop. Started on meropenem 1 g IV q.8, which I will adjust to 500 mg IV q.8. He did receive diltiazem one time dose IV. He is on heparin subcutaneous, on metoprolol p.o. q.12, which has been held because of low blood pressure, nitroglycerin p.r.n., ondansetron p.r.n., Renagel, Ambien, and pravastatin. SOCIAL HISTORY: Does not smoke or drink. FAMILY HISTORY: Significant for diabetes. PHYSICAL EXAMINATION: GENERAL: Ill-looking gentleman, poorly responsive, though on 40% Venti mask. VITAL SIGNS: Oxygen saturation 100%. Heart rate at the moment 150. HEAD AND NECK: Cornea clear. Oral mucosa limited exam. Neck veins are flat. LUNGS: Relatively clear, supine exam. HEART: S1 and S2 audible. ABDOMEN: Otherwise soft and nontender. No apparent visceromegaly. EXTREMITIES: Lower extremity examination shows no edema. IMPRESSION: Cardiac arrhythmia, hypotension, and metabolic acidosis. Blood gas looks good with pH 7.46, pCO2 30, PO2 of 124, and bicarbonate 21. Plan hemodialysis. I will discuss with Cardiology in reference to his heart rate control. We must get heart rate under better control so that we can generate some stroke volume in order to improve his blood pressure. Otherwise, we may have to start him on vasopressin. I have adjusted the dose of meropenem. Please see orders. MD SKYE Whitehead/MARLYNL /[id number]
[2020-05-19] MEDS ORDERED: ALBUMIN 25% 25GM 100ML 0.25 GM/ML BTL IV NR (19:00)
[2020-05-19] MEDS ORDERED: NOREPINEPHRINE INJ 4MG/4ML 16 MG in DEXTROSE 5% 250ML 250 ML IV PRN (19:15)
[2020-05-19] MEDS ORDERED: BENZOCAINE 20% SPR 60 ML CAN MT ONE (19:45)
[2020-05-19] MEDS ORDERED: MIDAZOLAM HCL 5MG/ML 10ML VIAL 100 ML IV ONE (20:05)
[2020-05-19] MEDS ORDERED: SODIUM CHLORIDE 0.9% 1000ML 1,000 ML ONE (20:08)
--- NOTE | 2020-05-19 21:18 | Diagnostic Imaging Report ---
EXAMINATION: CHEST SINGLE (PORTABLE) INDICATION: ^intubation ^20200519 ^2024 COMPARISON: Earlier same day FINDINGS: AP view TUBES and LINES: Interval intubation. The tip of endotracheal tube is approximately 3.5 cm above giuliano. Stable triple lead right chest wall cardiac device and right internal jugular central line. New enteric tube in place with tip projecting over gastric fundus. LUNGS: Low lung volumes. Pulmonary vascular congestion. PLEURA: No pleural effusion or pneumothorax. HEART AND MEDIASTINUM: The cardiomediastinal silhouette is enlarged. Median sternotomy wires and mediastinal surgical clips are again seen. BONES AND SOFT TISSUES: No acute osseous lesion. Soft tissues are unremarkable. UPPER ABDOMEN: No free air under the diaphragm. IMPRESSION: Interval intubation and enteric tube placement. Pulmonary status is unchanged. Signed by: Dr. Harsh Ferrell MD on 05/19/2020 9:15 PM
[2020-05-19 21:31] LABS: ABG HCO3 16 mmol/L (22-26); ABG PCO2 26 mmHg (35-45); ABG PO2 229 mmHg (80-105); ABG TCO2 17
--- NOTE | 2020-05-19 21:47 | Consultation ---
DATE OF CONSULTATION: 05/19/2020 Cardiology Consult Note REASON FOR CONSULTATION: Elevated troponin, AFib with RVR, hypertension. CHIEF COMPLAINT: Could not be obtained due to altered mental status. HISTORY OF PRESENT ILLNESS: The patient is a 69-year-old man with known history of CAD, status post CABG in the past; hypertension; hyperlipidemia; and end-stage renal disease, who presents with nausea and vomiting after having missed dialysis, tachycardia with heart rates in the 150s. Dialysis Center told him to go to the ER because of high heart rate that he could not be dialyzed as an outpatient. On presentation, his troponin was noted to be elevated. Per the ER reporting, the patient did not complain of any chest discomfort on presentation. Overnight, his heart rate remained elevated despite being on IV amiodarone all night. This morning, he had a fever to 103 and was noted to have altered mental status, which is reportedly new since last evening. REVIEW OF SYSTEMS: Could not be obtained due to altered mental status. PAST MEDICAL HISTORY: As per HPI. SOCIAL HISTORY: He does not smoke, drink, or abuse drugs per the notes. FAMILY HISTORY: Noncontributory. OUTPATIENT MEDICATIONS: Reviewed. ALLERGIES: NO KNOWN DRUG ALLERGIES. PHYSICAL EXAMINATION: VITAL SIGNS: Temperature 103.3, pulse 143, respiratory rate 30, blood pressure 80/40. GENERAL: Middle-aged man, well developed, well nourished, altered, mild respiratory distress. CARDIOVASCULAR: Tachycardic, irregular. LUNGS: Coarse breath sounds at bilateral bases. ABDOMEN: Soft, nondistended. NEUROLOGIC AND PSYCH: The patient is altered, responds to painful stimuli with moans and groans. Opens eyes briefly, but does not follow commands. INPATIENT MEDICATIONS: Reviewed. LABORATORY DATA: Reviewed. White count is 11.8. Sodium 131 and potassium 4.1. CK 239, CK-MB 9.4, and troponin 9.6. BNP 4500. Coronavirus PCR negative. Blood gas showed pH of 7.5, pCO2 of 30, PO2 of 124 on non-rebreather, and O2 saturation 99%. IMAGING DATA: Reviewed. Chest x-ray shows cardiomegaly with pulmonary edema, superimposed pneumonia. EKG, reviewed, shows AFib with RVR, heart rate is in the 150 range, intermittently paced. ASSESSMENT: 1. Non-ST elevation myocardial infarction. 2. Atrial fibrillation with rapid ventricular response. 3. Suspected sepsis. 4. End-stage renal disease. PLAN: The patient's blood pressure is low, he is altered, AFib with RVR despite being on amiodarone drip overnight. Given these findings, we will emergently cardiovert to restore sinus rhythm and help with the blood pressure. Continue heparin, aspirin, and Plavix for non-ST elevation DE. Given his fever and possible sepsis, we will not take him to the [facility] at this time. Continue medical treatment per Nephrology and Pulmonary Critical Care. We will get urgent echocardiogram after cardioversion. Continue amiodarone drip at 1 mg/minute. Hold all other antihypertensive medicines. Thank you for this consult. We will continue to follow. MD ENRIQUE Zurita/MARLYNL /[id number]
--- NOTE | 2020-05-19 21:58 | Operative Report ---
DATE OF PROCEDURE: 05/19/2020 SURGEON: Jayce Reyes MD Cardioversion Note INDICATION FOR PROCEDURE: Atrial fibrillation with RVR. PROCEDURES PERFORMED: Emergent synchronized cardioversion. PROCEDURE DETAILS: The patient was seen in the ICU and defibrillator pads were placed in an anterior, posterior manner. Given altered mental status, atrial fibrillation with RVR with heart rate in the 150s and blood pressure in the 80s. We decided to perform an emergency cardioversion without a NANO. The patient has already been on heparin. A cardioversion was performed after giving 50 of fentanyl at 120 joules synchronized, which resulted in successful evangelical of sinus rhythm with PACs. The patient's blood pressure did seem to improve from a systolic 80 to systolic 103. The patient, however, remained altered. Further workup is ongoing. GRAFTS AND IMPLANTS: None. SPECIMEN REMOVED: None. ESTIMATED BLOOD LOSS: None. COMPLICATIONS: None. FINAL RECOMMENDATIONS: 1. Continue amiodarone. 2. We will get his pacemaker checked. Jayce Reyes MD [facility]/MODL /[id number]
[2020-05-19 22:08] LABS: CREATINE KINASE MB 17.4 ng/mL (0-5.0)
[2020-05-20] VITALS (24 sets, daily range): BP systolic 92–134; BP diastolic 53–82
[2020-05-20] MEDS: METOPROLOL TARTRATE 25 MG TAB PO SCH ×2 (04:00→16:00)
[2020-05-20] MEDS: FAMOTIDINE 20 MG/2 ML VIAL IV SCH ×2 (05:37→16:22)
[2020-05-20 05:43] LABS: BASOPHILS # (AUTO) 0.2 (0.0-0.1); BASOPHILS % 0.8 % (0.0-1.0); HEMATOCRIT 32.5 % (38.2-49.6); HEMOGLOBIN 11.1 g/dL (14.0-18.0); LYMPHOCYTES # (AUTO) 0.8 (1.0-3.2); LYMPHOCYTES % 3.4 % (18.0-39.1); MEAN CORPUSCULAR HEMOGLOBIN 31.4 pg (28-32); MEAN CORPUSCULAR HGB CONC 34.2 g/dL (31-35); MEAN CORPUSCULAR VOLUME 91.8 fL (81-99); MONOCYTES # (AUTO) 1.4 (0.2-0.8); MONOCYTES % 6.3 % (4.4-11.3); NEUTROPHILS # (AUTO) 19.5 (2.1-6.9); NEUTROPHILS % 87.3 % (38.7-80.0); PLATELET COUNT 105 x10e3/uL (140-360); RED BLOOD COUNT 3.54 x10e6/uL (4.3-5.7); RED CELL DISTRIBUTION WIDTH 15.4 % (11.7-14.4)
[2020-05-20 05:55] LABS: ALBUMIN 3.2 g/dL (3.5-5.0); ALBUMIN/GLOBULIN RATIO 0.9 (0.8-2.0); ANION GAP 33.1 mmol/L (8-16); CALCIUM 7.9 mg/dL (8.4-10.2); CREATININE, SERUM 8.19 mg/dL (0.72-1.25); POTASSIUM 4.1 mmol/L (3.5-5.1)
--- NOTE | 2020-05-20 08:00 | NUR ---
Heparin titrated to 5ml/hr (500 units) per protocol.
[2020-05-20] MEDS: SEVELAMER CARBONATE 800 MG TAB PO SCH ×3 (09:00→20:54)
[2020-05-20] MEDS: CLOPIDOGREL BISULFATE 75 MG TAB PO SCH (09:25)
[2020-05-20] MEDS: ASPIRIN 81 MG CHEW TAB PO SCH (09:25)
[2020-05-20] MEDS: MEROPENEM 500MG/ NS 50ML 100 ML IV SCH ×2 (09:25→20:55)
--- NOTE | 2020-05-20 09:34 | Operative Report ---
DATE OF PROCEDURE: SURGEON: Tomas Gupta MD PROCEDURE: Endotracheal intubation with GlideScope. PREOPERATIVE DIAGNOSIS: Respiratory failure. POSTOPERATIVE DIAGNOSIS: Respiratory failure. CONSENT: Consent was obtained from the patient. MEDICATIONS: Etomidate 20 mg and Hurricaine spray for local anesthesia. DESCRIPTION OF PROCEDURE: The patient was placed in a supine position. He was preoxygenated with a non-rebreather and briefly ventilated with an Ambu bag. Hurricaine spray was used to anesthetize the posterior pharynx and glottis. He received etomidate 20 mg IV. A GlideScope was used to visualize the glottis. An endotracheal tube was passed on the first attempt. There was good CO2 return with equal breath sounds bilaterally. The patient's O2 saturation remained above 90% throughout the procedure. He remained hemodynamically stable. COMPLICATIONS: None. ESTIMATED BLOOD LOSS: None. Tomas Gupta MD [facility]/MODL /[id number]
[2020-05-20] MEDS: INSULIN REGULAR, HUMAN 100 UNIT/1 ML 3ML VIAL SQ SCH ×4 (09:37→22:04)
--- NOTE | 2020-05-20 09:44 | Progress Note ---
DATE: SUBJECTIVE: The patient is currently receiving dialysis. He is on a mechanical ventilator with a PRVC mode of ventilation. He is on maximum vasopressin and Levophed at 10 mcg. PHYSICAL EXAMINATION: VITAL SIGNS: The blood pressure is now 127/64 on vasopressin and Levophed. The saturation is 100%. The pulse is 82. HEENT: Shows no facial swelling or erythema. LYMPHATIC: Shows no submandibular, cervical, or supraclavicular adenopathy. CARDIAC: Reveals regular rate and rhythm with normal S1, S2. LUNGS: Auscultation of lungs reveals rhonchorous breath sounds bilaterally. There is no wheezing. ABDOMEN: Soft and nontender. There is no rebound or guarding. EXTREMITIES: Shows no leg edema or calf tenderness. There is no cyanosis or clubbing. SKIN: Shows no rashes. NEUROLOGICAL: Shows no focal abnormalities. LABORATORY DATA: White blood cell count is 22.3, hemoglobin is 11.1, platelet count is 105. The BUN to creatinine ratio is 68 to 8.19. Carbon dioxide is 12. The sodium is 129. The troponin is 49. IMPRESSION: 1. Septic shock with unclear source, present on admission. 2. Myocardial infarction secondary to demand ischemia. 3. Acute on chronic renal failure with uremia. 4. Thrombocytopenia. 5. Metabolic acidosis. 6. Anemia. PLAN: 1. Complete dialysis. 2. Continue Merrem and vancomycin. ID has been consulted. 3. Continue heparin drip. 4. Repeat EKG. 5. Continue pressors for now. 6. Continue to monitor and control blood sugars. 7. Complete dialysis. 8. Case discussed with nursing, Respiratory, Internal Medicine, Nephrology, and Infectious Disease. Greater than 35 minutes in direct critical care time apart from any procedures performed. Tomas Gupta MD [facility]/MODL /[id number]
--- NOTE | 2020-05-20 11:29 | NUR ---
IM- progress note O/N see below ROS: unreliable v/s; revd PE anxious appearing anicteric ns1s2 reduced bs soft nt nd no e/t skin dry flat affect awake; carballo labs/meds revd A/P: 69yoM A.fib with RVR- IV amio/BB/AC Intractable N/V- antiemetics NSTEMI- heparin; hold statin with elevated liver fn; ASA+plavix; cardio eval; echo; check lipids. Acute on Chr Systolic CHF- HD for fluid removal Pulmonary edema- as above CAD with hx CABG- cont BB ESRD - HD per nephr Hypertensive heart ds- cont BB Hyperbilirubinemia- f/u COVID testing Transaminitis- as above Thrombocytopenia- monitor on AC AOCD- monitor on AC Secondary hyperparathyroidism Prop: AC Dispo: cct>35mins. f/u COVID testing; HD; antiemetics; AV blockade 9-6-20 HTG; Tn increased to 9; possible cirrhosis; A.fib with RVR- cardioversion pending; Right foot great toe Infection/DFU - IV abx; podiatry consult; cct>35mins 9-7 Tn 49; Hyponatremia; Worsened WBC; cont antimicrobials and vent support; very sick patient; continue care in ICU. MELVA MENDEZ MD, PHD.
[2020-05-20] MEDS ORDERED: SODIUM CHLORIDE 0.9% 250ML 500 ML IV PRN (11:45)
[2020-05-20] MEDS ORDERED: ALBUMIN 25% 12.5GM 0.25 GM/ML BTL IV PRN (11:45)
[2020-05-20] MEDS ORDERED: SODIUM CHLORIDE 0.9% 1000ML 2,000 ML IV PRN (11:45)
[2020-05-20] MEDS ORDERED: VANCOMYCIN 1GM/NS 250 ML 250 ML IV ONE (14:00)
--- NOTE | 2020-05-20 15:30 | Consultation ---
DATE OF CONSULTATION: 05/20/2020 Infectious Disease Consultation. I would like to thank Dr. Hal Mae for this interesting consult. HISTORY OF PRESENT ILLNESS: This is a 69-year-old male with past medical history of end-stage renal disease, cardiovascular disease status post AICD, ischemic cardiomyopathy, type 2 diabetes mellitus, hypertension, who was initially admitted to the hospital on May 19, 2020, with concerns of atrial fibrillation with RVR. The patient was barely arousable, was initially started on IV amiodarone. The patient underwent emergent synchronized cardioversion on 05-19-2020. Due to respiratory failure, the patient underwent intubation and remains in ICU. Service has been asked to evaluate and give further recommendations regarding antibiotics. PAST MEDICAL HISTORY: As mentioned above. PAST SURGICAL HISTORY: AICD placement. MEDICATIONS: Reviewed. ALLERGIES: NO KNOWN DRUG ALLERGIES. FAMILY HISTORY: Noncontributory. SOCIAL HISTORY: No history of smoking or drinking. REVIEW OF SYSTEMS: Unable to obtain. PHYSICAL EXAMINATION: VITAL SIGNS: Temperature is 99.1, respiratory rate is 32, heart rate is 92, and blood pressure is . LABORATORY DATA: WBC of 22.3, hemoglobin 11.1, platelet count is 105, creatinine is 8.19. Serology, Coronavirus PCR negative. Acute hepatitis serology is pending. Blood cultures negative at 24 hours. Chest x-ray shows cardiomegaly with pulmonary edema with consideration of superimposed pneumonia. ASSESSMENT AND PLAN: 1. This is a 69-year-old male with past medical history of end-stage renal disease, coronary artery disease status post AICD placement, hypertension, type 2 diabetes mellitus, presents with atrial fibrillation and RVR status post synchronized cardioversion on amiodarone drip. 2. Community acquired pneumonia. 3. Pulmonary edema. 4. Cardiomegaly. 5. Congestive heart failure exacerbation secondary to above. PLAN: 1. Agree with meropenem 500 mg daily. We will give IV vancomycin 1 g x1. 2. Check sputum culture. 3. CBC in the morning. 4. Check influenza antigen. 5. further recommendations to follow. Thank you for letting me to participate in the care of your patient. Char Wiggins MD [facility]/MODL /[id number]
--- NOTE | 2020-05-20 16:13 | NUR ---
Nutrition Intervention Note RD Recommendation(s) for Physician: -Recommend initiating enteral nutrition if pt is to remain intubated and consult RD Plan of Care: RD following, monitoring for tolerance and adequacy Nutrition reason for involvement: Nutrition Risk Trigger RD Assessment (05/20/20) Pt is a 69 year old male admitted with afib with RVR, CHF, ESRD, and NSTEMI. Pt is receiving dialysis. Pt was intubated yesterday; therefore, unable to obtain nutrition history from pt at this time. It is noted that pt is primarily Ghanaian speaking. Per chart, pt reported unsure weight loss and a decreased appetite prior to admission. Per weight history, pt weighed 155 lbs in May 2018. Therefore, no significant weight loss is evident. Recommend initiating enteral nutrition if pt is to remain intubated and consult RD. Will continue to monitor. Principal Problems/Diagnoses: afib with RVR, CHF, ESRD, and NSTEMI PMH: ESRD, diabetes, HTN GI: soft abdomen Skin: right toe wound, stage 1 sacral pressure ulcer Labs: (05/20) Na 129, BUN 61, Cr 8.19, Glu 280, Ca 7.9, AST 140, ALT 90 Meds: insulin, antibiotic, pepcid, heparin, vasopressin, renvela, metoprolol, norepinephrine, amiodarone, colace Ht: 65 inc Wt: 150 lbs BMI: 25.0 kg/m2 IBW:136 lbs Malnutrition Evaluation (05/20/20) The patient does not meet criteria for a specified degree of malnutrition at this time. Will re-evaluate at follow-up as appropriate. Energy intake: Unable to evaluate at this time Weight loss: no significant weight loss is evident per weight history Fat loss: unable to evaluate Muscle loss: unable to evaluate Supporting Evidence: Fluid accumulation: no edema per MD note Functional Status: unable to assess Nutrition Prescription (Diet Order): 1800 ADA Estimated Nutritional Needs: 9189-2310 calories/day (20-25 kcal/kg CBW) 102- 135 g protein/day (1.5-2 g pro/kg CBW) Diet Adequacy: Not meeting calorie needs, Not meeting protein needs Tolerance: N/A Diet Education Needs Assessment: Diet education not indicated, patient is intubated Nutrition Care Level: moderate Nutrition Diagnosis: Inadequate oral intake related to mechanical ventilation as evidenced by insufficient energy intake from diet compared to needs. Goal: Patient will meet 75-100% of estimated needs by follow up Progress: N/A Interventions: -recommend enteral nutrition Monitoring/Evaluation: -Total energy intake, Total protein intake, Weight change, Formula/Solution Signed: Kenzie Diaz RD, LD
--- NOTE | 2020-05-20 16:17 | Diagnostic Imaging Report ---
Examination: CT head without contrast Clinical Indication: ^decreased responsiveness ^20200520 ^1545. Technique: Transaxial noncontrast images from the skull base through the vertex were obtained. Sagittal and coronal reformatted images were done. Dose modulation, iterative reconstruction, and/or weight based adjustment of the mA/kV was utilized to reduce the radiation dose to as low as reasonably achievable. Comparison: None. Findings: Scalp: No abnormalities. Bones: Intact. No fractures. No blastic or lytic lesions. Brain sulci: Generalized volume loss for patient's age. Ventricles: No hydrocephalus. Extra-axial space: No abnormalities. Parenchyma: There are patchy areas of low-attenuation within subcortical and periventricular white matter, nonspecific, but could represent microvascular ischemic disease. Chronic lacunar infarct in the right medial cerebellum. Chronic left precentral comparison cortical based infarct. No masses, hemorrhage, or acute cortical based vascular insults. Suprasellar region: No abnormalities. Craniocervical junction: The foramen magnum is patent. No Chiari one malformation. Incidental findings: Atherosclerotic calcification of the cavernous and supraclinoid internal carotid and V4 segments of the bilateral vertebral arteries. Impression: 1. No acute intracranial finding. 2. 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 3. Generalized volume loss.. Signed by: Dr. Mary Espinoza M.D. on 05/20/2020 4:13 PM
[2020-05-20] MEDS: SODIUM BICARBONATE INJ 150 ML in DEXTROSE 5% 1,000 ML IV SCH (16:22)
--- NOTE | 2020-05-20 17:36 | Progress Note ---
DATE: 05/20/2020 SUBJECTIVE: Remain unresponsive, was intubated overnight, high-dose pressors. Blood pressure both borderline, not in atrial fibrillation with RVR anymore, but still has a lot of ectopy with episode of what appears to be pacemaker tachycardia versus atrial tachycardia. OBJECTIVE: VITAL SIGNS: Temperature afebrile, pulse 92, respiratory rate 20, saturating 100% on mechanical ventilation. Blood pressure is 101/60 on Levophed. GENERAL: Middle-aged man, well developed, well nourished, intubated, does not respond to verbal commands or stimulation. CARDIOVASCULAR: Irregular rate and rhythm. No murmurs, rubs, or gallops. LUNGS: Coarse breath sounds bilaterally. ABDOMEN: Soft, nondistended. NEURO AND PSYCH: Unresponsive. Grimaces and moans with pain. INPATIENT MEDICATIONS: Reviewed. LABORATORY DATA: Reviewed. White count is 22.3, hemoglobin 11, platelet count 105, troponin is now 50 with CK-MB of 17. IMAGING DATA: Reviewed. Head CT done today shows no acute intracranial findings. ASSESSMENT: 1. Atb-[id number] myocardial infarction. 2. Septic shock. 3. Cardiogenic shock. 4. Atrial fibrillation with rapid ventricular response. 5. Coronary artery disease, status post coronary artery bypass grafting in the past. 6. History of pacemaker in the past. PLAN: Having a lot of ectopy when interrogated device, reprogrammed it necessary for pacemaker tachycardia. Troponin continues to elevate, probably combination of demand ischemia from severe sepsis as well as [id number] myocardial infarction . Echocardiogram was reviewed, shows generalized LV dysfunction and LVEF about 25%. No evidence of endocarditis. The patient remains critically ill given his multiorgan dysfunction and sepsis despite increasing troponin, he is not a candidate for invasive cardiac cath or therapies at this time. He would be very high risk for [place] and during the procedure. Continue heparin, aspirin and Plavix. I had a long discussion over the phone with the son, who is his next of kin regarding his cardiac issues as well as overall prognosis being poor. If he recovers from sepsis over the next few days and things stabilize, he may need high-risk PCI, however, currently there are no plans for this. Continue supportive care only. Continue IV amiodarone for his arrhythmias. Thank you for this consult. We will continue to follow. MD ENRIQUE Zurita/AVI /[id number]
[2020-05-20 17:51] LABS: ABG HCO3 26 mmol/L (22-26); ABG PCO2 29 mmHg (35-45); ABG PH 7.56 (7.35-7.45); ABG PO2 68 mmHg (80-105); ABG TCO2 26
[2020-05-20] MEDS: HEPARIN 25,000 UNIT 800 UNIT in DEXTROSE 5% 250ML 250 ML IV SCH (18:10)
--- NOTE | 2020-05-20 18:45 | NUR ---
Report received. Assumed care. Assessment done. See interventions. Orally intubated with 8.0 FR ETT secured @ 24cm at the lip. Vent settings: TV 400, FIO2 40%, PRV 18 & PEEP 8cm. NGT to LIS with dark green drng. IVs: Vasopressin @ 0.07 units/min or 4.2ml/hr, Levophed 12 mcg/min or 22.6 ml/hr, Heparin @ 500 units/hr or 5ml/hr, Amiodarone @ 1mg/min or 33.3ml/hr & D5W with HCO3 @ 50ml/hr.
[2020-05-20] MEDS: VASOPRESSIN 60 UNIT in DEXTROSE 5% 50ML 57 ML IV PRN (19:30)
[2020-05-20] MEDS: PRAVASTATIN 20 MG TAB PO SCH (20:54)
[2020-05-21] VITALS (32 sets, daily range): BP systolic 84–127; BP diastolic 44–95
--- NOTE | 2020-05-21 00:59 | NUR ---
Complete bed bath given. Cleaned for small soft brown stool. Bed linens changed.
[2020-05-21] MEDS: FAMOTIDINE 20 MG/2 ML VIAL IV SCH ×2 (05:27→18:21)
[2020-05-21] MEDS: AMIODARONE HCL 900 MG in DEXTROSE 5% 500ML 500 ML IV SCH ×2 (05:27→20:56)
[2020-05-21] MEDS: METOPROLOL TARTRATE 25 MG TAB PO SCH ×2 (05:27→16:00)
[2020-05-21] MEDS ORDERED: AMIODARONE 900MG 500 ML IV ONE ×2 (05:28→20:55)
[2020-05-21 06:45] LABS: BASOPHILS # (AUTO) 0.1 (0.0-0.1); BASOPHILS % 0.4 % (0.0-1.0); EOSINOPHILS % 0.1 % (0.0-6.0); HEMATOCRIT 28.1 % (38.2-49.6); HEMOGLOBIN 9.7 g/dL (14.0-18.0); LYMPHOCYTES # (AUTO) 0.7 (1.0-3.2); LYMPHOCYTES % 4.1 % (18.0-39.1); MEAN CORPUSCULAR HGB CONC 34.5 g/dL (31-35); MEAN CORPUSCULAR VOLUME 89.8 fL (81-99); MONOCYTES # (AUTO) 1.4 (0.2-0.8); MONOCYTES % 8.4 % (4.4-11.3); NEUTROPHILS # (AUTO) 14.3 (2.1-6.9); NEUTROPHILS % 83.7 % (38.7-80.0); PLATELET COUNT 74 x10e3/uL (140-360); RED BLOOD COUNT 3.13 x10e6/uL (4.3-5.7); RED CELL DISTRIBUTION WIDTH 15.9 % (11.7-14.4)
[2020-05-21 06:58] LABS: ANION GAP 29.7 mmol/L (8-16); CALCIUM 7.6 mg/dL (8.4-10.2); CREATININE, SERUM 6.17 mg/dL (0.72-1.25); POTASSIUM 3.7 mmol/L (3.5-5.1)
[2020-05-21 07:47] LABS: ABG HCO3 23 mmol/L (22-26); ABG PCO2 29 mmHg (35-45); ABG PH 7.51 (7.35-7.45); ABG PO2 186 mmHg (80-105); ABG TCO2 24
[2020-05-21] MEDS: SEVELAMER CARBONATE 800 MG TAB PO SCH ×3 (09:00→21:00)
[2020-05-21] MEDS: CLOPIDOGREL BISULFATE 75 MG TAB PO SCH (09:04)
[2020-05-21] MEDS: ASPIRIN 81 MG CHEW TAB PO SCH (09:04)
[2020-05-21] MEDS: MEROPENEM 500MG/ NS 50ML 100 ML IV SCH ×2 (09:04→21:19)
[2020-05-21] MEDS: INSULIN REGULAR, HUMAN 100 UNIT/1 ML 3ML VIAL SQ SCH ×4 (09:05→21:32)
--- NOTE | 2020-05-21 09:33 | Progress Note ---
DATE: SUBJECTIVE: The patient remains on vasopressin at 0.08. He is also on Levophed at 10. He is not responding well. He went for a CT scan of the head, that was negative. He was seen yesterday by Infectious Disease. He was started on Merrem and is being continued on vancomycin. The patient is still on a heparin drip. His troponin I's were elevated yesterday. He was evaluated by Cardiology and felt to be having a myocardial infarction, but was not a candidate for cardiac catheterization. PHYSICAL EXAMINATION: VITAL SIGNS: The blood pressure is 106/58 and saturation is 99%, pulse is 95, and respiratory rate is 24. HEENT: Shows no facial swelling or erythema. LYMPHATIC: Shows no submandibular, cervical, or supraclavicular adenopathy. CARDIAC: Reveals regular rate and rhythm with normal S1, S2. LUNGS: Auscultation of lungs reveals decreased breath sounds at the bases. There is no wheezing. ABDOMEN: Soft, nontender. There is no rebound or guarding. EXTREMITIES: Shows no leg edema or calf tenderness. There is no cyanosis or clubbing. SKIN: Shows a wound with eschar formation over the great toe on the right side. Current ventilator settings on SIMV of 14 with a pressure support of 10. FiO2 is set at 35%. LABORATORY DATA: White blood cell count is 17.03 and hemoglobin is 9.7. The platelet count is 74. The BUN to creatinine ratio is 54 to 6.17. The carbon dioxide is 18. Sodium is 132. RADIOGRAPHIC DATA: Chest x-ray shows some pulmonary edema and an endotracheal tube in good position. IMPRESSION: 1. Septic shock with unclear source, present on admission. 2. Myocardial infarction. 3. Acute respiratory failure. 4. Hzhlp-of-wxdlkqw renal failure with uremia. 5. Thrombocytopenia. 6. Metabolic acidosis. 7. Wound infection with possible osteomyelitis in the toe on the right side. 8. Severe metabolic encephalopathy. PLAN: 1. Continue Merrem. Discussed dosing of vancomycin with Infectious Disease and await culture results. 2. Wean pressures as tolerated. 3. Continue heparin. 4. The patient has been evaluated by Cardiology, is not felt to be a candidate for catheterization right now. 5. Continue to monitor control blood sugars. 6. Complete dialysis. 7. Consider MRI of the brain, further workup for neurological status. 8. Case was discussed with nightshift nursing, dayshift nursing, Respiratory, Nephrology, Cardiology, and Internal Medicine. Greater than 35 minutes in direct critical care time. MD LAQUITA Montana/AVI /[id number]
--- NOTE | 2020-05-21 13:37 | NUR ---
RN called MD Sunshine's office to inform him of new consult. RN talked to Stacie in the office and she stated that MD Sunshine would not be in the office until tomorrow 05/22 but she would forward the message.
--- NOTE | 2020-05-21 13:55 | Progress Note ---
DATE: Cardiology Progress Note SUBJECTIVE: The patient is currently intubated, non-responsive. OBJECTIVE: VITAL SIGNS: Temperature is 97.9, heart rate is 107, respirations are 29, blood pressure is 96/58, and ox saturation 100% on 40% FiO2, being mechanically ventilated. GENERAL: Ill appearing, no apparent distress, non-responsive, on mechanical ventilation. CARDIOVASCULAR: Irregular rhythm, tachycardic. No murmurs. LUNGS: Coarse rhonchi, bilateral lung khan. ABDOMEN: Soft, nondistended. NEUROLOGIC: Unresponsive. LABORATORY DATA: Reviewed. Creatinine 6.17. Sodium 132. IMPRESSION: 1. Nqs-SU-keaqgcjiy myocardial infarction. 2. Septic shock. 3. Cardiogenic shock. 4. Atrial fibrillation. 5. Presence of permanent pacemaker. 6. Coronary artery disease, status post coronary bypass graft surgery. 7. Paroxysmal atrial fibrillation. RECOMMENDATIONS: Continue amiodarone infusion. Dr. Reyes discussed with the family regarding his poor prognosis due to multiorgan failure and altered mental status and percutaneous coronary intervention, it will be deferred at this point in time. Otherwise, continue all current cardiovascular medications. Continue supportive care per critical care team. Wean ventilator as tolerated. Wean vasopressors as tolerated. DO ALINA Pham/MODL /[id number]
--- NOTE | 2020-05-21 14:12 | Diagnostic Imaging Report ---
Exam: KUB - 2 views Indication: Bowel Obstruction Comparison: None Findings: Nonobstructive bowel gas pattern. No free air. Extensive atherosclerotic arterial calcifications. No acute osseous injury. Impression: No acute radiographic abnormality. Signed by: Becki Florez MD on 05/21/2020 2:08 PM
--- NOTE | 2020-05-21 14:15 | Diagnostic Imaging Report ---
EXAMINATION: FOOT RIGHT COMPLETE INDICATION: Osteomyelitis COMPARISON: None FINDINGS: Soft tissue irregularity and cortical defects of the distal phalanx of the great toe. Soft tissue irregularity also at the distal second and third toes. Erosive changes involve the second and third metatarsals and proximal and distal phalanges. There is near complete destruction of the second and third MTP joints. Extensive atherosclerotic arterial calcifications. No acute fracture. IMPRESSION: Soft tissue irregularities and erosive changes involving the great toe and second and third toes as above. Findings are compatible with provided clinical history of osteomyelitis. Signed by: Becki Florez MD on 05/21/2020 2:12 PM
--- NOTE | 2020-05-21 14:21 | NUR ---
IM- progress note O/N see below ROS: unreliable v/s; revd PE anxious appearing anicteric ns1s2 reduced bs soft nt nd no e/t skin dry flat affect awake; carballo labs/meds revd A/P: 69yoM A.fib with RVR- IV amio/BB/AC Intractable N/V- antiemetics NSTEMI- heparin; hold statin with elevated liver fn; ASA+plavix; cardio eval; echo; check lipids. Acute on Chr Systolic CHF- HD for fluid removal Pulmonary edema- as above CAD with hx CABG- cont BB ESRD - HD per nephr Hypertensive heart ds- cont BB Hyperbilirubinemia- f/u COVID testing Transaminitis- as above Thrombocytopenia- monitor on AC AOCD- monitor on AC Secondary hyperparathyroidism Prop: AC Dispo: cct>35mins. f/u COVID testing; HD; antiemetics; AV blockade 9-6-20 HTG; Tn increased to 9; possible cirrhosis; A.fib with RVR- cardioversion pending; Right foot great toe Infection/DFU - IV abx; podiatry consult; cct>35mins 9-7 Tn 49; Hyponatremia; Worsened WBC; cont antimicrobials and vent support; very sick patient; continue care in ICU. 05/21 intubated; septic shock on pressor; Osteomyelitis of right foot great toe- Podiatry consulted; cct>35mins MELVA MENDEZ MD, PHD.
--- NOTE | 2020-05-21 14:28 | NUR ---
IM- progress note O/N see below ROS: unreliable v/s; revd PE INTUBATED anicteric ns1s2 reduced bs soft nt nd RIGHT FOOT WITH 2ND AND 3RD DIGITS PARTIAL AMPUTATIONS WELL HEALED; GREAT TOE WITH NECROSIS APPEARING CHANGES. skin dry flat affect NOT AWAKE; labs/meds revd A/P: 69yoM A.fib with RVR- IV amio/BB/AC Intractable N/V- antiemetics NSTEMI- heparin; hold statin with elevated liver fn; ASA+plavix; cardio eval; echo; check lipids. Acute on Chr Systolic CHF- HD for fluid removal Pulmonary edema- as above CAD with hx CABG- cont BB ESRD - HD per nephr Hypertensive heart ds- cont BB Hyperbilirubinemia- f/u COVID testing Transaminitis- as above Thrombocytopenia- monitor on AC AOCD- monitor on AC Secondary hyperparathyroidism Prop: AC Dispo: cct>35mins. f/u COVID testing; HD; antiemetics; AV blockade 9-6-20 HTG; Tn increased to 9; possible cirrhosis; A.fib with RVR- cardioversion pending; Right foot great toe Infection/DFU - IV abx; podiatry consult; cct>35mins 9-7 Tn 49; Hyponatremia; Worsened WBC; cont antimicrobials and vent support; very sick patient; continue care in ICU. 05/21 intubated; septic shock on pressor; Osteomyelitis of right foot great toe- Podiatry consulted; cct>35mins MELVA MENDEZ MD, PHD.
--- NOTE | 2020-05-21 14:42 | NUR ---
WOUND CARE CONSULT 69 YO FEMALE HX OF CHF,A FIB ERLIN 12 0N STRICT PUP STATUS AND INTERVENTIONS AND ALTERNATING PRESSURE MATTRESS LABS: WBC- 17.03 HGB- 9.7 [id number] SKIN ASSESSMENT COMPLETE PATIENT PRESENTS WITH NECROTIC GREAT RIGHT TOE RECOMMENDATIONS: NURSING TO CONTINUE TO MONITOR PATIENT AND KEEP SKIN CLEAN AND FREE FROM LOOSE STOOL OR IRRITATING MOISTURE AND CONTINUE TO FOLLOW MODERATE PUP INTERVENTIONS NURSING TO CONTINUE TO GET PATIENT OUT OF BED FOR MEALS AND MUCH TOLERATED NURSING TO CLEAN NECROTIC GREAT RIGHT TOE SALINE AND DRY DAILY AND APPLY BETADINE AND LEAVE OPEN TO AIR Addendum: 05/21/20 at 1446 by Alejandro Tolentino RN Amended: Links added.
[2020-05-21] MEDS: HEPARIN 25,000 UNIT 800 UNIT in DEXTROSE 5% 250ML 250 ML IV SCH (17:04)
--- NOTE | 2020-05-21 18:22 | NUR ---
Sena Hobbs RN wasted Bag of versed that was pulled previously but was never started wasted in pyxis with Kendal Barba RN.
[2020-05-21] MEDS: PRAVASTATIN 20 MG TAB PO SCH (21:19)
[2020-05-22] VITALS (30 sets, daily range): BP systolic 85–130; BP diastolic 43–104
[2020-05-22] MEDS: FAMOTIDINE 20 MG/2 ML VIAL IV SCH ×2 (04:26→17:22)
[2020-05-22] MEDS: METOPROLOL TARTRATE 25 MG TAB PO SCH ×2 (04:27→16:00)
[2020-05-22 04:52] LABS: BASOPHILS # (AUTO) 0.1 (0.0-0.1); BASOPHILS % 0.4 % (0.0-1.0); EOSINOPHILS % 0.1 % (0.0-6.0); HEMOGLOBIN 9.8 g/dL (14.0-18.0); LYMPHOCYTES % 4.8 % (18.0-39.1); MEAN CORPUSCULAR HEMOGLOBIN 30.8 pg (28-32); MEAN CORPUSCULAR VOLUME 88.1 fL (81-99); NEUTROPHILS # (AUTO) 17.2 (2.1-6.9); NEUTROPHILS % 86.6 % (38.7-80.0); PLATELET COUNT 76 x10e3/uL (140-360); RED BLOOD COUNT 3.18 x10e6/uL (4.3-5.7); RED CELL DISTRIBUTION WIDTH 15.5 % (11.7-14.4)
[2020-05-22 05:15] LABS: ANION GAP 29.5 mmol/L (8-16); CALCIUM 7.8 mg/dL (8.4-10.2); CREATININE, SERUM 7.17 mg/dL (0.72-1.25); POTASSIUM 3.5 mmol/L (3.5-5.1)
--- NOTE | 2020-05-22 06:34 | NUR ---
IM- progress note O/N see below ROS: unreliable v/s; revd PE INTUBATED anicteric ns1s2 reduced bs soft nt nd RIGHT FOOT WITH 2ND AND 3RD DIGITS PARTIAL AMPUTATIONS WELL HEALED; GREAT TOE WITH NECROSIS APPEARING CHANGES. skin dry flat affect NOT AWAKE; labs/meds revd A/P: 69yoM A.fib with RVR- IV amio/BB/AC Intractable N/V- antiemetics NSTEMI- heparin; hold statin with elevated liver fn; ASA+plavix; cardio eval; echo; check lipids. Acute on Chr Systolic CHF- HD for fluid removal Pulmonary edema- as above CAD with hx CABG- cont BB ESRD - HD per nephr Hypertensive heart ds- cont BB Hyperbilirubinemia- f/u COVID testing Transaminitis- as above Thrombocytopenia- monitor on AC AOCD- monitor on AC Secondary hyperparathyroidism Prop: AC Dispo: cct>35mins. f/u COVID testing; HD; antiemetics; AV blockade 9-6-20 HTG; Tn increased to 9; possible cirrhosis; A.fib with RVR- cardioversion pending; Right foot great toe Infection/DFU - IV abx; podiatry consult; cct>35mins 9-7 Tn 49; Hyponatremia; Worsened WBC; cont antimicrobials and vent support; very sick patient; continue care in ICU. 05/21 intubated; septic shock on pressor; Osteomyelitis of right foot great toe- Podiatry consulted; cct>35mins 9-9 growth detected in blood; f/u; con antimicrobials; remains very ill. CT head done few days ago negative. MELVA MENDEZ MD, PHD.
[2020-05-22 07:23] LABS: LYMPHOCYTES % (MANUAL) 10 % (19-48); MONOCYTES % (MANUAL) 4 % (3.4-9.0); NEUTROPHILS % (MANUAL) 86 % (40-74); PLATELET ESTIMATE SLIGHTLY DECREASED; PLATELET MORPHOLOGY COMMENT NORMAL; RBC MORPHOLOGY COMMENT NORMAL
[2020-05-22 07:24] LABS: ANISOCYTOSIS SLIGHT
[2020-05-22 07:35] LABS: ABG HCO3 24 mmol/L (22-26); ABG PCO2 29 mmHg (35-45); ABG PH 7.52 (7.35-7.45); ABG PO2 103 mmHg (80-105); ABG TCO2 25
[2020-05-22] MEDS: MEROPENEM 500MG/ NS 50ML 100 ML IV SCH ×2 (08:31→21:28)
[2020-05-22] MEDS: ASPIRIN 81 MG CHEW TAB PO SCH (08:31)
[2020-05-22] MEDS: CLOPIDOGREL BISULFATE 75 MG TAB PO SCH (08:31)
[2020-05-22] MEDS: SEVELAMER CARBONATE 800 MG TAB PO SCH ×3 (08:31→21:00)
[2020-05-22] MEDS: INSULIN REGULAR, HUMAN 100 UNIT/1 ML 3ML VIAL SQ SCH ×4 (08:32→21:00)
--- NOTE | 2020-05-22 09:48 | Consultation ---
DATE OF CONSULTATION: 05/22/2020 REASON FOR CONSULTATION: Gangrene to the right great toe with severe peripheral arterial disease. HISTORY OF PRESENT ILLNESS: Most of the history was obtained from the chart secondary to the patient being nonresponsive to verbal stimuli. This is a 69-year-old male who is seen at bedside, who is nonresponsive with a history of end-stage renal disease and type 2 diabetes undetermined how long his toes have been turning discolored. PAST SURGICAL HISTORY: Remarkable for coronary artery bypass grafting, status post pacemaker and status post AV fistula for dialysis. PAST MEDICAL HISTORY: Remarkable for diabetes, hypertension, and end-stage renal disease. ALLERGIES: ACCORDING TO THE CHART, NONE. SOCIAL HISTORY: Unobtainable. FAMILY HISTORY: Noncontributory. REVIEW OF SYSTEMS: Unobtainable. LABORATORY DATA: Noted, has a white blood cell count of 19.85, hemoglobin 9.8, hematocrit 28.0 with a platelet count of 76. PHYSICAL EXAMINATION: VITAL SIGNS: Temperature of 99.0, pulse rate 81, respiration 19, blood pressure 105/53, O2 saturation 98%. Podiatric physical examination reveals the following: VASCULATURE: Pedal pulses of both the DP and PT are significantly diminished to both lower extremities. Skin temperature very cold to touch the right foot when compared to the left even though the left limb is also cold to touch. NEUROLOGICAL: Unobtainable. The patient is not responsive to any stimuli in his feet. MUSCULOSKELETAL: Muscle mass to be symmetrical and muscle wasting noted. Muscle strength unobtainable. DERMATOLOGICAL: Reveals gangrenous changes to the right great toe, very cold to touch with no active foul smell or drainage noted. X-rays were positive for bony erosions to the distal phalanx consistent with osteomyelitis. ASSESSMENT: Dry gangrene, severe peripheral arterial disease with osteomyelitis. PLAN: We will treat conservatively with local wound care with diluted wet-to-dry Betadine. Offloading both feet with heel protectors. We will continue to follow. The patient is not a surgical candidate secondary to his medical status and very poor circulation. ОЛЕГ Blake/AVI /[id number]
[2020-05-22] MEDS ORDERED: DEXMEDETOMIDINE 200MCG/NS 50ML 50 ML IV PRN (11:30)
--- NOTE | 2020-05-22 12:15 | Progress Note ---
DATE: SUBJECTIVE: The patient remains on a SIMV mode of ventilation. Blood cultures are growing out gram-positive cocci in pairs. Foot was examined by Podiatry yesterday and is felt to be consistent with osteomyelitis. The patient is scheduled for dialysis today. The patient remains on max vasopressin and Levophed at 2 mcg. PHYSICAL EXAMINATION: VITAL SIGNS: The blood pressure is 114/60 and the saturation is 96%. The pulse is 82. The patient's SIMV mode of ventilation is set at a rate of 12 with a tidal volume of 380. FiO2 is set at 35%. HEENT: Shows no facial swelling or erythema. There is an oral endotracheal tube. There is a right IJ line. The site looks clean. There is no drainage. CARDIAC: Reveals regular rate and rhythm with normal S1 and S2. LUNGS: Auscultation of lungs reveals decreased breath sounds at the bases. There is no wheezing. ABDOMEN: Soft and nontender. There is no rebound or guarding. EXTREMITIES: Show no leg edema or calf tenderness. There is no cyanosis or clubbing. SKIN: Shows no rashes. NEUROLOGICAL: Shows no focal abnormalities. LABORATORY DATA: White blood cell count is 19.8 and the hemoglobin is 9.8. The platelet count is 76. The BUN to creatinine ratio is 81 to 7.17. The carbon dioxide is 20. Blood sugar is 220 to 396. IMPRESSION: 1. Strep bacteremia with toe osteomyelitis and severe sepsis, present on admission. 2. Myocardial infarction. 3. Twjnc-ug-lfjjutx renal failure with uremia. 4. Thrombocytopenia. 5. Metabolic encephalopathy. 6. Respiratory failure. PLAN: 1. Continue to wean pressures as tolerated. 2. Discuss tapering of antibiotics with Infectious Disease. 3. Continue heparin. 4. Add Lantus to daily insulin along with subcutaneous insulin. 5. Continue dialysis as needed. 6. Await Neurology consultation. Greater than 35 minutes in direct critical care time. Tomas Gupta MD [facility]/MODL /[id number]
[2020-05-22] MEDS ORDERED: VANCOMYCIN 1GM/NS 250 ML 250 ML IV ONE (15:40)
[2020-05-22] MEDS: AMIODARONE HCL 900 MG in DEXTROSE 5% 500ML 500 ML IV SCH (15:56)
[2020-05-22] MEDS: HEPARIN 25,000 UNIT 800 UNIT in DEXTROSE 5% 250ML 250 ML IV SCH (17:22)
[2020-05-22] MEDS: PRAVASTATIN 20 MG TAB PO SCH (21:28)
[2020-05-22] MEDS: INSULIN GLARGINE 100 UNITS/ML VIAL SQ SCH (21:30)
[2020-05-23] VITALS (25 sets, daily range): BP systolic 91–123; BP diastolic 41–79
[2020-05-23] MEDS ORDERED: AMIODARONE 900MG 500 ML IV ONE (03:18)
[2020-05-23] MEDS: METOPROLOL TARTRATE 25 MG TAB PO SCH ×2 (04:00→16:00)
[2020-05-23] MEDS: FAMOTIDINE 20 MG/2 ML VIAL IV SCH ×2 (04:59→17:42)
[2020-05-23] MEDS: AMIODARONE HCL 900 MG in DEXTROSE 5% 500ML 500 ML IV SCH ×2 (04:59→19:38)
[2020-05-23] MEDS: DEXMEDETOMIDINE 200MCG/NS 50ML 50 ML IV PRN ×3 (05:00→19:39)
[2020-05-23 05:10] LABS: BASOPHILS # (AUTO) 0.1 (0.0-0.1); BASOPHILS % 0.6 % (0.0-1.0); EOSINOPHILS % 0.1 % (0.0-6.0); HEMATOCRIT 27.7 % (38.2-49.6); HEMOGLOBIN 9.5 g/dL (14.0-18.0); LYMPHOCYTES # (AUTO) 1.4 (1.0-3.2); LYMPHOCYTES % 7.7 % (18.0-39.1); MEAN CORPUSCULAR HEMOGLOBIN 31.5 pg (28-32); MEAN CORPUSCULAR HGB CONC 34.3 g/dL (31-35); MEAN CORPUSCULAR VOLUME 91.7 fL (81-99); MONOCYTES # (AUTO) 0.9 (0.2-0.8); MONOCYTES % 4.9 % (4.4-11.3); NEUTROPHILS # (AUTO) 15.1 (2.1-6.9); NEUTROPHILS % 81.5 % (38.7-80.0); PLATELET COUNT 78 x10e3/uL (140-360); RED BLOOD COUNT 3.02 x10e6/uL (4.3-5.7); RED CELL DISTRIBUTION WIDTH 16.3 % (11.7-14.4)
[2020-05-23 05:34] LABS: ALBUMIN 3.3 g/dL (3.5-5.0); ALBUMIN/GLOBULIN RATIO 1.1 (0.8-2.0); ANION GAP 30.2 mmol/L (8-16); CREATININE, SERUM 5.83 mg/dL (0.72-1.25); POTASSIUM 4.2 mmol/L (3.5-5.1)
[2020-05-23] MEDS: INSULIN REGULAR, HUMAN 100 UNIT/1 ML 3ML VIAL SQ SCH ×4 (06:42→21:17)
--- NOTE | 2020-05-23 06:43 | NUR ---
IM- progress note O/N see below ROS: unreliable v/s; revd PE INTUBATED anicteric ns1s2 reduced bs soft nt nd RIGHT FOOT WITH 2ND AND 3RD DIGITS PARTIAL AMPUTATIONS WELL HEALED; GREAT TOE WITH NECROSIS APPEARING CHANGES. skin dry flat affect NOT AWAKE; labs/meds revd A/P: 69yoM A.fib with RVR- IV amio/BB/AC Intractable N/V- antiemetics NSTEMI- heparin; hold statin with elevated liver fn; ASA+plavix; cardio eval; echo; check lipids. Acute on Chr Systolic CHF- HD for fluid removal Pulmonary edema- as above CAD with hx CABG- cont BB ESRD - HD per nephr Hypertensive heart ds- cont BB Hyperbilirubinemia- f/u COVID testing Transaminitis- as above Thrombocytopenia- monitor on AC AOCD- monitor on AC Secondary hyperparathyroidism Prop: AC Dispo: cct>35mins. f/u COVID testing; HD; antiemetics; AV blockade 9-6-20 HTG; Tn increased to 9; possible cirrhosis; A.fib with RVR- cardioversion pending; Right foot great toe Infection/DFU - IV abx; podiatry consult; cct>35mins 9-7 Tn 49; Hyponatremia; Worsened WBC; cont antimicrobials and vent support; very sick patient; continue care in ICU. 05/21 intubated; septic shock on pressor; Osteomyelitis of right foot great toe- Podiatry consulted; cct>35mins 9-9 growth detected in blood; f/u; con antimicrobials; remains very ill. CT head done few days ago negative. 9-10 hyperbilirubinemia- check NH3 levels; Staph aureus infected sputum- f/u spp. MELVA MENDEZ MD, PHD.
[2020-05-23 07:40] LABS: LYMPHOCYTES % (MANUAL) 7 % (19-48); MONOCYTES % (MANUAL) 2 % (3.4-9.0); NEUTROPHILS % (MANUAL) 91 % (40-74)
[2020-05-23 07:41] LABS: ANISOCYTOSIS SLIGHT; PLATELET ESTIMATE MODERATELY DECREASED; PLATELET MORPHOLOGY COMMENT NORMAL; RBC MORPHOLOGY COMMENT NORMAL
--- NOTE | 2020-05-23 08:57 | Diagnostic Imaging Report ---
EXAMINATION: CHEST SINGLE (PORTABLE) INDICATION: Respiratory failure COMPARISON: Chest radiograph 05/19/2020 FINDINGS: LINES/TUBES:Endotracheal tube terminates approximately 2.5 cm above the giuliano. Enteric tube projects below the diaphragm with side port in the stomach and tip not visualized. Right IJ temporary central venous catheter terminates in the SVC. Right chest AICD. EKG leads overlie the chest. LUNGS:The lungs are moderately inflated. Increasing bilateral predominantly peripheral airspace opacities. PLEURA:No pleural effusion or pneumothorax. MEDIASTINUM:Cardiomediastinal silhouette is stably enlarged. Atherosclerotic calcifications of the thoracic aorta. BONES/SOFT TISSUES:No acute osseous injury. Sternotomy wires in place. ABDOMEN:No free air under the diaphragm. IMPRESSION: Interval intubation and placement of enteric tube. Endotracheal tube terminates approximately 2.5 cm above the giuliano and enteric tube projects below the diaphragm with side port in the stomach and tip not visualized. Increasing bilateral predominantly peripheral airspace opacities concerning for multifocal infection. Signed by: Becki Florez MD on 05/23/2020 8:54 AM
[2020-05-23] MEDS: SEVELAMER CARBONATE 800 MG TAB PO SCH ×3 (09:00→21:00)
--- NOTE | 2020-05-23 09:30 | Progress Note ---
DATE: 05/23/2020 SUBJECTIVE: The patient is seen at bedside, not responsive to verbal stimuli. OBJECTIVE: VITAL SIGNS: Afebrile, pulse rate 60, respirations 29, blood pressure 117/57, O2 saturation 97%. EXTREMITIES: Right great toe getting worse, cyanotic with skin temperature very cold to touch. Pedal pulses are nonpalpable to both the DP and PT. LABORATORY DATA: Labs show white blood cell count of 18.48. ASSESSMENT: Severe peripheral arterial disease with gangrenous changes noted to the right great toe with ischemic foot. PLAN: We will continue to treat conservatively. Monitor the patient. Continue applying diluted wet-to-dry Betadine, offloading as best as possible. We will continue to follow. ОЛЕГ Blake/AVI /[id number]
[2020-05-23] MEDS: CLOPIDOGREL BISULFATE 75 MG TAB PO SCH (09:49)
[2020-05-23] MEDS: MEROPENEM 500MG/ NS 50ML 100 ML IV SCH ×2 (09:49→21:16)
[2020-05-23] MEDS: ASPIRIN 81 MG CHEW TAB PO SCH (09:49)
[2020-05-23] MEDS ORDERED: LORAZEPAM INJ 2 MG/ML VIAL IV PRN (10:30)
[2020-05-23] MEDS ORDERED: SODIUM BICARBONATE 8.4% 150 ML in DEXTROSE 5% 1,000 ML IV SCH (11:00)
--- NOTE | 2020-05-23 11:26 | Progress Note ---
DATE: SUBJECTIVE: The patient is scheduled to receive dialysis today. He remains on vasopressin at 0.08 as well as low-dose Levophed at 2. The patient is still on SIMV mode of ventilation set at a rate of 12 with a pressure support of 10. He is on Precedex. PHYSICAL EXAMINATION: VITAL SIGNS: Temperature is 103.4. The blood pressure is 117/57 and the saturation is 97%. HEENT: Shows no facial swelling or erythema. LYMPHATIC: Shows no submandibular, cervical or supraclavicular adenopathy. There is an oral endotracheal tube. CARDIAC: Reveals regular rate and rhythm with normal S1 and S2. LUNGS: Auscultation of lungs reveals rhonchorous breath sounds bilaterally. There is no wheezing. ABDOMEN: Soft and nontender. There is no rebound or guarding. EXTREMITIES: Shows no leg edema or calf tenderness. There is no cyanosis or clubbing. SKIN: Shows no rashes. LABORATORY DATA: White blood cell count is 14.48 and the hemoglobin is 9.5. The platelet count is 78. The BUN to creatinine ratio is 73 to 5.83. The carbon dioxide is 15. Anion gap is increased to 30. Albumin is 3.3. MICROBIOLOGICAL DATA: Sputum is growing out Staph aureus. Blood culture shows gram-positive cocci in pairs. IMPRESSION: 1. Osteomyelitis with strep bacteremia and severe sepsis, present on admission. 2. Staph aureus pneumonia with severe sepsis. 3. Lyget-rb-kuaxuon renal failure. 4. Respiratory failure. 5. Metabolic encephalopathy. 6. Thrombocytopenia. PLAN: 1. Continue current antibiotics. 2. Discussed need for additional vancomycin with dialysis today with Infectious Disease. 3. Dialysis scheduled for today. 4. Continue to monitor blood sugars and insulin. 5. Continue to monitor mental status. 6. Continue heparin. 7. Await Neurology consultation. 8. Poor prognosis. 9. Case discussed with nursing, Respiratory, family, and Internal Medicine. Greater than 35 minutes in direct critical care time. Tomas Gupta MD [facility]/MODL /[id number]
[2020-05-23 11:28] LABS: ABG HCO3 21 mmol/L (22-26); ABG PCO2 25 mmHg (35-45); ABG PH 7.54 (7.35-7.45); ABG PO2 145 mmHg (80-105); ABG TCO2 22
[2020-05-23] MEDS: ACETAMINOPHEN 325 MG TAB PO PRN (12:07)
[2020-05-23] MEDS: VASOPRESSIN 60 UNIT in DEXTROSE 5% 50ML 57 ML IV PRN (12:16)
[2020-05-23] MEDS ORDERED: VANCOMYCIN 1GM/NS 250 ML 250 ML IV ONE (14:00)
--- NOTE | 2020-05-23 16:48 | NUR ---
Nutrition Intervention Note RD Recommendation(s) for Physician: -Recommend modifying formula to Vital AF 1.2 @ goal rate of 55 mL/hr (provides 1584 kcal, 99 g protein, and 1071 mL water) -Water/fluid management per MD Plan of Care: RD following, monitoring for tolerance and adequacy Nutrition reason for involvement: Nutrition Risk Trigger RD Assessment 05/23: Follow up. Pt remains intubated and is receiving Glucerna 1.2 @ 20 mL/hr. Recommendations provided. RD to manage TF order per Dr. Gupta. Will continue to monitor. (05/20/20) Pt is a 69 year old male admitted with afib with RVR, CHF, ESRD, and NSTEMI. Pt is receiving dialysis. Pt was intubated yesterday; therefore, unable to obtain nutrition history from pt at this time. It is noted that pt is primarily Czech speaking. Per chart, pt reported unsure weight loss and a decreased appetite prior to admission. Per weight history, pt weighed 155 lbs in May 2018. Therefore, no significant weight loss is evident. Recommend initiating enteral nutrition if pt is to remain intubated and consult RD. Will continue to monitor. Principal Problems/Diagnoses: afib with RVR, CHF, ESRD, and NSTEMI PMH: ESRD, diabetes, HTN GI: soft abdomen, no BM recorded Skin: necrotic great right toe per wound care note (05/21) Labs: 05/23: Na 132, K 4.2, BUN 73, Cr 5.83, Glu 354, Ca 8.0, Total Bili 3.5, AST 65 (05/20) Na 129, BUN 61, Cr 8.19, Glu 280, Ca 7.9, AST 140, ALT 90 Meds: insulin, antibiotic, amiodarone, insulin, vasopressin, renvela, metoprolol, norepinephrine, zofran, colace Ht: 65 inc Wt: 145 lbs (05/22) 150 lbs (05/19) weight fluctuations likely due to dialysis BMI: 24.1 kg/m2 IBW:136 lbs Malnutrition Evaluation (05/23/20) The patient does not meet criteria for a specified degree of malnutrition at this time. Will re-evaluate at follow-up as appropriate. Energy intake: <50% of estimated energy requirements for 5 days Weight loss: no significant weight loss is evident per weight history, weight fluctuations due to dialysis Fat loss: unable to evaluate Muscle loss: unable to evaluate Supporting Evidence: Fluid accumulation: no edema per chart Functional Status: unable to assess Nutrition Prescription (Diet Order): Glucerna 1.2 @ 30 mL/hr Estimated Nutritional Needs: 9795-4895 calories/day (20-25 kcal/kg CBW) Weight used: 145 lbs 99- 130 g protein/day (1.5-2 g pro/kg CBW) Weight used: 145 lbs Diet Adequacy: Not meeting calorie needs, Not meeting protein needs Tolerance: tolerance pending Diet Education Needs Assessment: Diet education not indicated, patient is intubated Nutrition Care Level: high Nutrition Diagnosis: Inadequate oral intake related to mechanical ventilation as evidenced by pt requiring enteral nutrition. Goal: Patient will meet 75-100% of estimated needs by follow up Progress: goal not met Interventions: -Composition, Rate, Route, Recommended Modifications Monitoring/Evaluation: -Total energy intake, Total protein intake, Weight change, Formula/Solution Signed: Kenzie Diaz RD, SOWMYA
--- NOTE | 2020-05-23 17:42 | Progress Note ---
DATE: Cardiology Progress Note SUBJECTIVE: No events. The patient is still unresponsive. OBJECTIVE: VITAL SIGNS: Temperature is 103.4, heart rate 62, respirations are 40, blood pressure is 91/41, and oxygen saturation 100% on 30% FiO2, being mechanically ventilated. GENERAL: Chronically ill-appearing, unresponsive. Otherwise, cardiovascular exam was not performed due to isolation. LABORATORY DATA: Reviewed. White blood cell count is 18, hemoglobin 9, platelets 78. Creatinine is 5.8, potassium 4.2, and lactic acid is 3.6. IMPRESSION: 1. Avr-XS-kqpdaltfn myocardial infarction. 2. Acute on chronic systolic congestive heart failure. 3. Septic shock. 4. Atrial fibrillation. 5. Presence of a permanent pacemaker. 6. Coronary artery disease, status post coronary bypass graft surgery. 7. Paroxysmal atrial fibrillation. RECOMMENDATIONS: Continue amiodarone infusion for rate and rhythm control. Overall prognosis is very poor due to multiorgan failure and altered mental status. Dr. Reyes discussed his cardiovascular status with the family and no invasive procedure will be done at this point in time. Continue supportive care and wean vasopressors. Shahzad Whatley DO [facility]/MODL /[id number]
--- NOTE | 2020-05-23 20:33 | Consultation ---
DATE OF CONSULTATION: Neurology Consultation HISTORY OF PRESENT ILLNESS: The patient is a 69-year-old male with history of coronary artery disease who I am seeing him for a nonresponsive state. The patient has history of CABG in the past. Hypertension, hyperlipidemia, end-stage renal disease. He presented with nausea, vomiting after missing dialysis and he was tachycardic. He was intubated and treated for sepsis and nonresponsiveness and has required ventilatory support. At this time of this evaluation, he is nonresponsive to examiners and stimulation. The patient does not give any past medical history, so this is from the records. PAST MEDICAL HISTORY: Includes diabetes, hypertension, end-stage renal disease, coronary artery disease and previous CABG. SOCIAL HISTORY: Unobtainable. FAMILY HISTORY: Unobtainable. REVIEW OF SYSTEMS: Unobtainable.. PHYSICAL EXAMINATION: GENERAL: The patient is intubated and vent dependent. VITAL SIGNS: He is currently afebrile at 103.4 temperature, heart rate is 60, blood pressure is 91/41, and he is very hypotensive. HEENT: His extraocular muscles are not intact to doll's eyes. They are minimally to nonresponsive. Pupils are 2 mm and nonresponsive. He is not responding to corneal stimulation. He does gag with stimulation of the palate and glottis. He does have nuchal rigidity. His bilateral upper extremities are nonresponsive to noxious stimulation. Reflexes are currently absent. ABDOMEN: Soft, nontender, and nondistended. There is no rash in the neck or the axillary area. ASSESSMENT AND PLAN: The patient comes to my attention for neurological exam, neurological evaluation for nonresponsiveness. His exam is strongly concerning for diffuse injury of the supra and infratentorial region given the lack of responsiveness to all reflex modalities tested other than gag. This does suggest he has transient or permanent structural injury. An EEG and MRI will be done. CT scan was performed. CT scan does not show substantial findings, however, was performed on the . We will get the EEG and then possibly an MRI and we will go from there. From neurological evaluation, at this time exam is very concerning for severe diffuse neurological dysfunction, possibly structural and he possibly also involving the . Consultation at the bedside of 22 minute duration. MD ELSIE BOTELLO /[id number]
[2020-05-23] MEDS: PRAVASTATIN 20 MG TAB PO SCH (21:16)
[2020-05-23] MEDS: INSULIN GLARGINE 100 UNITS/ML VIAL SQ SCH (21:17)
[2020-05-23] MEDS: METOCLOPRAMIDE HCL 10 MG/2ML VIAL IV SCH (21:17)
[2020-05-24] VITALS (24 sets, daily range): BP systolic 89–128; BP diastolic 43–67
[2020-05-24] MEDS: HEPARIN 25,000 UNIT 800 UNIT in DEXTROSE 5% 250ML 250 ML IV SCH ×2 (00:39→16:00)
[2020-05-24] MEDS: DEXMEDETOMIDINE 200MCG/NS 50ML 50 ML IV PRN ×4 (03:00→12:28)
[2020-05-24] MEDS: METOPROLOL TARTRATE 25 MG TAB PO SCH ×2 (04:00→16:00)
--- NOTE | 2020-05-24 05:22 | NUR ---
IM- progress note O/N see below ROS: unreliable v/s; revd PE INTUBATED anicteric ns1s2 reduced bs soft nt nd RIGHT FOOT WITH 2ND AND 3RD DIGITS PARTIAL AMPUTATIONS WELL HEALED; GREAT TOE WITH NECROSIS APPEARING CHANGES. skin dry flat affect NOT AWAKE; labs/meds revd A/P: 69yoM A.fib with RVR- IV amio/BB/AC Intractable N/V- antiemetics NSTEMI- heparin; hold statin with elevated liver fn; ASA+plavix; cardio eval; echo; check lipids. Acute on Chr Systolic CHF- HD for fluid removal Pulmonary edema- as above CAD with hx CABG- cont BB ESRD - HD per nephr Hypertensive heart ds- cont BB Hyperbilirubinemia- f/u COVID testing Transaminitis- as above Thrombocytopenia- monitor on AC AOCD- monitor on AC Secondary hyperparathyroidism Prop: AC Dispo: cct>35mins. f/u COVID testing; HD; antiemetics; AV blockade 9-6-20 HTG; Tn increased to 9; possible cirrhosis; A.fib with RVR- cardioversion pending; Right foot great toe Infection/DFU - IV abx; podiatry consult; cct>35mins 9-7 Tn 49; Hyponatremia; Worsened WBC; cont antimicrobials and vent support; very sick patient; continue care in ICU. 05/21 intubated; septic shock on pressor; Osteomyelitis of right foot great toe- Podiatry consulted; cct>35mins 9-9 growth detected in blood; f/u; con antimicrobials; remains very ill. CT head done few days ago negative. 9-10 hyperbilirubinemia- check NH3 levels; Staph aureus infected sputum- f/u spp. 9-11 Hyperammonemia 300- Hepatic encephalopathy- start lactulose; f/u EEG ordered by neurology. f/u labs MELVA MENDEZ MD, PHD.
[2020-05-24] MEDS: METOCLOPRAMIDE HCL 10 MG/2ML VIAL IV SCH ×2 (05:27→14:47)
[2020-05-24] MEDS: FAMOTIDINE 20 MG/2 ML VIAL IV SCH ×2 (05:27→16:42)
[2020-05-24 06:18] LABS: BASOPHILS # (AUTO) 0.1 (0.0-0.1); BASOPHILS % 0.5 % (0.0-1.0); EOSINOPHILS % 0.1 % (0.0-6.0); HEMATOCRIT 26.8 % (38.2-49.6); HEMOGLOBIN 9.3 g/dL (14.0-18.0); LYMPHOCYTES # (AUTO) 2.5 (1.0-3.2); LYMPHOCYTES % 10.9 % (18.0-39.1); MEAN CORPUSCULAR HEMOGLOBIN 31.4 pg (28-32); MEAN CORPUSCULAR HGB CONC 34.7 g/dL (31-35); MEAN CORPUSCULAR VOLUME 90.5 fL (81-99); MONOCYTES # (AUTO) 0.9 (0.2-0.8); MONOCYTES % 3.9 % (4.4-11.3); NEUTROPHILS # (AUTO) 17.9 (2.1-6.9); NEUTROPHILS % 76.8 % (38.7-80.0); PLATELET COUNT 97 x10e3/uL (140-360); RED BLOOD COUNT 2.96 x10e6/uL (4.3-5.7); RED CELL DISTRIBUTION WIDTH 17.4 % (11.7-14.4)
[2020-05-24 06:49] LABS: ALBUMIN 3.2 g/dL (3.5-5.0); CALCIUM 7.8 mg/dL (8.4-10.2); CREATININE, SERUM 5.54 mg/dL (0.72-1.25)
[2020-05-24 07:18] LABS: BAND NEUTROPHILS % (MANUAL) 1 %; LYMPHOCYTES % (MANUAL) 17 % (19-48); MONOCYTES % (MANUAL) 4 % (3.4-9.0); NEUTROPHILS % (MANUAL) 78 % (40-74); NUCLEATED RED BLOOD CELLS 4
[2020-05-24 07:19] LABS: PLATELET ESTIMATE MODERATELY DECREASED
[2020-05-24 07:20] LABS: ANISOCYTOSIS SLIGHT; HYPOCHROMASIA SLIGHT; PLATELET MORPHOLOGY COMMENT FEW LARGE; POLYCHROMASIA FEW; RBC MORPHOLOGY COMMENT NORMAL; TOXIC GRANULATION MODERATE
--- NOTE | 2020-05-24 08:17 | NUR ---
patient showed no neurological changes since last visit vs 98.8 68 120/58 pupils right one appear surgical or not perfeclty round- 1.5mm and non reactive left pupils 1.5 mm and non reactive does not respond to dolls eye menuver, no eom movement no nuchal rigidty rrr cta- rhonchus abd soft, reflexes diminished no response to noxious stimulation was not able to elicit cough today a/p anoxic brain injury - eeg pending MRI - pending exam concerning for supratentorial and infratentorial dysfunction however, patinet exam is not consistent with brain , but is very close to neurophysiological injury and extensive anoxic injury
[2020-05-24] MEDS: ACETAMINOPHEN 325 MG TAB PO PRN ×2 (09:00→12:25)
[2020-05-24] MEDS: MEROPENEM 500MG/ NS 50ML 100 ML IV SCH (09:22)
[2020-05-24] MEDS: CLOPIDOGREL BISULFATE 75 MG TAB PO SCH (09:22)
[2020-05-24] MEDS: LACTULOSE SYRUP 20 GM/30 ML UDC PO SCH ×2 (09:22→14:47)
[2020-05-24] MEDS: SEVELAMER CARBONATE 800 MG TAB PO SCH (09:22)
[2020-05-24] MEDS: ASPIRIN 81 MG CHEW TAB PO SCH (09:22)
[2020-05-24] MEDS: INSULIN REGULAR, HUMAN 100 UNIT/1 ML 3ML VIAL SQ SCH ×4 (09:24→22:09)
--- NOTE | 2020-05-24 09:33 | Diagnostic Imaging Report ---
EXAMINATION: CHEST SINGLE (PORTABLE) INDICATION: History of failure COMPARISON: Chest radiograph 05/23/2020 FINDINGS: LINES/TUBES:Support lines and tubes unchanged. LUNGS:The lungs are moderately inflated. Unchanged bilateral multifocal opacities. PLEURA:No pleural effusion or pneumothorax. MEDIASTINUM:The cardiomediastinal silhouette appears unchanged in size and shape. BONES/SOFT TISSUES:No acute osseous injury. ABDOMEN:No free air under the diaphragm. IMPRESSION: No significant interval change. Signed by: Becki Florez MD on 05/24/2020 9:29 AM
--- NOTE | 2020-05-24 11:05 | Progress Note ---
DATE: 05/24/2020 SUBJECTIVE: The patient at bedside, intubated, not responsive. OBJECTIVE: VITAL SIGNS: Afebrile, pulse rate 68, respirations 29, blood pressure 101/49, O2 saturation 100%. EXTREMITIES: Right great toe getting stable for now. Gangrenous changes noted with mottled appearance. Skin temperature very cool to touch. Pedal pulses nonpalpable. LABORATORY DATA: Labs show white blood cell count of 23.31. ASSESSMENT: Peripheral arterial disease with dry gangrene, right great toe with cellulitis. PLAN: We will continue diluted wet-to-dry Betadine b.i.d. Continue offloading as best as possible. Continue IV vancomycin. We will continue following. Prognosis, not good at this time. ОЛЕГ Blake/AVI /[id number]
[2020-05-24 12:00] LABS: ABG HCO3 26 mmol/L (22-26); ABG PCO2 28 mmHg (35-45); ABG PH 7.58 (7.35-7.45); ABG PO2 79 mmHg (80-105); ABG TCO2 26
[2020-05-24] MEDS: AMIODARONE HCL 900 MG in DEXTROSE 5% 500ML 500 ML IV SCH ×2 (12:27→21:00)
[2020-05-24] MEDS: VASOPRESSIN 60 UNIT in DEXTROSE 5% 50ML 57 ML IV PRN (12:28)
--- NOTE | 2020-05-24 14:16 | Progress Note ---
DATE: SUBJECTIVE: The patient is still not responding well. He remains only on Precedex. The patient is on vasopressin at 0.07 as well as Levophed at 6 mcg. The patient is scheduled to receive dialysis today. PHYSICAL EXAMINATION: VITAL SIGNS: Blood pressure is 101/45, saturation is 97%, and the pulse is 60. The T-max is 102.4. HEENT: Shows no facial swelling or erythema. LYMPHATIC: Shows no submandibular, cervical, or supraclavicular adenopathy. CARDIAC: Reveals regular rate and rhythm with normal S1 and S2. LUNGS: Auscultation of lungs reveals rhonchorous breath sounds bilaterally. No wheezing. ABDOMEN: Soft and nontender. There is no rebound or guarding. EXTREMITIES: Show gangrenous dry wound on the great toe of the right foot. LABORATORY DATA: BUN to creatinine ratio is 75 to 5.54 and the other electrolytes are significant for carbon dioxide of 19 and sodium 133. The glucose is 213. Albumin is 3.2. White blood cell count is 23.3 and the hemoglobin is 9.3. The platelet count is 97. IMPRESSION: 1. Osteomyelitis of the foot with Staph bacteremia and severe sepsis, present on admission. 2. Dslyg-zh-rwvsqam renal failure. 3. Metabolic encephalopathy, probably related to sepsis. 4. Thrombocytopenia. 5. Respiratory failure. 6. Feeding tube intolerance. 7. Myocardial infarction. 8. Atrial fibrillation. 9. Thrombocytopenia. PLAN: 1. Continue vancomycin. The patient will receive vancomycin with each dialysis session. 2. Wean pressures as tolerated. 3. Respiratory rate has been decreased to 16 and the ventilation has been decreased. We will repeat ABG later this afternoon. 4. Increase Lantus insulin and to monitor blood sugars. 5. Reglan. 6. Increase enteral feedings as tolerated. Greater than 35 minutes in direct critical care time. Tomas Gupta MD [facility]/MODL /[id number]
[2020-05-24] MEDS ORDERED: PROPOFOL IV EMULSION 10MG/ML 100 ML IV PRN (16:15)
[2020-05-24 17:26] LABS: ABG HCO3 25 mmol/L (22-26); ABG PCO2 26 mmHg (35-45); ABG PO2 93 mmHg (80-105); ABG TCO2 26
[2020-05-24] MEDS: VANCOMYCIN 1GM/NS 250 ML 250 ML IV SCH (20:28)
[2020-05-24] MEDS ORDERED: FLUCONAZOLE 400MG/200ML BAG 200 ML IV SCH (20:30)
[2020-05-24] MEDS ORDERED: VASOPRESSIN INJ 20 UNIT/ML VIAL ONE ×2 (21:39→21:44)
[2020-05-24] MEDS ORDERED: SODIUM CHLORIDE 0.9% 100 ML ONE (21:43)
[2020-05-24] MEDS: INSULIN GLARGINE 100 UNITS/ML VIAL SQ SCH (22:09)
[2020-05-25] VITALS (26 sets, daily range): BP systolic 85–135; BP diastolic 44–85
[2020-05-25] MEDS: METOCLOPRAMIDE HCL 10 MG/2ML VIAL IV SCH ×4 (02:17→21:32)
[2020-05-25] MEDS: MEROPENEM 500MG/ NS 50ML 100 ML IV SCH ×3 (02:17→21:31)
[2020-05-25] MEDS: LACTULOSE SYRUP 20 GM/30 ML UDC PO SCH ×4 (02:17→21:31)
[2020-05-25] MEDS: HEPARIN 25,000 UNIT 800 UNIT in DEXTROSE 5% 250ML 250 ML IV SCH (03:00)
[2020-05-25] MEDS: VASOPRESSIN 60 UNIT in DEXTROSE 5% 50ML 57 ML IV PRN (03:09)
[2020-05-25] MEDS: FAMOTIDINE 20 MG/2 ML VIAL IV SCH ×2 (03:10→17:21)
[2020-05-25] MEDS: METOPROLOL TARTRATE 25 MG TAB PO SCH ×2 (03:10→16:00)
[2020-05-25 04:46] LABS: BASOPHILS # (AUTO) 0.2 (0.0-0.1); BASOPHILS % 0.6 % (0.0-1.0); EOSINOPHILS % 0.1 % (0.0-6.0); HEMATOCRIT 29.4 % (38.2-49.6); HEMOGLOBIN 9.7 g/dL (14.0-18.0); LYMPHOCYTES # (AUTO) 1.8 (1.0-3.2); LYMPHOCYTES % 5.8 % (18.0-39.1); MEAN CORPUSCULAR HEMOGLOBIN 30.9 pg (28-32); MEAN CORPUSCULAR VOLUME 93.6 fL (81-99); MONOCYTES # (AUTO) 1.1 (0.2-0.8); MONOCYTES % 3.4 % (4.4-11.3); NEUTROPHILS # (AUTO) 25.5 (2.1-6.9); NEUTROPHILS % 83.7 % (38.7-80.0); PLATELET COUNT 112 x10e3/uL (140-360); RED BLOOD COUNT 3.14 x10e6/uL (4.3-5.7); RED CELL DISTRIBUTION WIDTH 18.7 % (11.7-14.4)
[2020-05-25 05:05] LABS: ALBUMIN 3.5 g/dL (3.5-5.0); ALBUMIN/GLOBULIN RATIO 0.9 (0.8-2.0); ANION GAP 27.4 mmol/L (8-16); CALCIUM 8.3 mg/dL (8.4-10.2); CREATININE, SERUM 4.7 mg/dL (0.72-1.25); POTASSIUM 3.4 mmol/L (3.5-5.1)
--- NOTE | 2020-05-25 05:56 | NUR ---
IM- progress note O/N see below ROS: unreliable v/s; revd PE INTUBATED anicteric ns1s2 reduced bs soft nt nd RIGHT FOOT WITH 2ND AND 3RD DIGITS PARTIAL AMPUTATIONS WELL HEALED; GREAT TOE WITH NECROSIS APPEARING CHANGES. skin dry flat affect NOT AWAKE; labs/meds revd A/P: 69yoM A.fib with RVR- IV amio/BB/AC Intractable N/V- antiemetics NSTEMI- heparin; hold statin with elevated liver fn; ASA+plavix; cardio eval; echo; check lipids. Acute on Chr Systolic CHF- HD for fluid removal Pulmonary edema- as above CAD with hx CABG- cont BB ESRD - HD per nephr Hypertensive heart ds- cont BB Hyperbilirubinemia- f/u COVID testing Transaminitis- as above Thrombocytopenia- monitor on AC AOCD- monitor on AC Secondary hyperparathyroidism Prop: AC Dispo: cct>35mins. f/u COVID testing; HD; antiemetics; AV blockade 9-6-20 HTG; Tn increased to 9; possible cirrhosis; A.fib with RVR- cardioversion pending; Right foot great toe Infection/DFU - IV abx; podiatry consult; cct>35mins 9-7 Tn 49; Hyponatremia; Worsened WBC; cont antimicrobials and vent support; very sick patient; continue care in ICU. 05/21 intubated; septic shock on pressor; Osteomyelitis of right foot great toe- Podiatry consulted; cct>35mins 9-9 growth detected in blood; f/u; con antimicrobials; remains very ill. CT head done few days ago negative. 9-10 hyperbilirubinemia- check NH3 levels; Staph aureus infected sputum- f/u spp. 9-11 Hyperammonemia 300- Hepatic encephalopathy- start lactulose; f/u EEG ordered by neurology. f/u labs 9-12 Anoxic brain injury; Bacteremia- species pending; Acute resp failure; Liver failure; Prognosis poor; left ; d/w son and by telephone; MELVA MENDEZ MD, PHD.
[2020-05-25] MEDS: DEXMEDETOMIDINE 200MCG/NS 50ML 50 ML IV PRN (08:00)
[2020-05-25 08:52] LABS: ABG PCO2 32 mmHg (35-45); ABG PH 7.51 (7.35-7.45)
[2020-05-25 08:53] LABS: ABG HCO3 26 mmol/L (22-26); ABG PO2 108 mmHg (80-105); ABG TCO2 27
[2020-05-25] MEDS: INSULIN REGULAR, HUMAN 100 UNIT/1 ML 3ML VIAL SQ SCH ×4 (08:58→21:32)
[2020-05-25] MEDS: ASPIRIN 81 MG CHEW TAB PO SCH (08:58)
[2020-05-25] MEDS: CLOPIDOGREL BISULFATE 75 MG TAB PO SCH (08:58)
[2020-05-25] MEDS: NAFCILLIN SOD 2 GM/NS 100ML 100 ML IV SCH ×4 (10:17→21:31)
--- NOTE | 2020-05-25 10:39 | Diagnostic Imaging Report ---
EXAMINATION: CHEST SINGLE (PORTABLE) INDICATION: Respiratory failure COMPARISON: Multiple prior chest radiographs including most recent on 05/24/2020. FINDINGS: TUBES and LINES: Support lines and tubes are unchanged. LUNGS: No significant interval change in multifocal airspace opacities. PLEURA: No pleural effusion or pneumothorax. HEART AND MEDIASTINUM: The cardiomediastinal silhouette is unchanged. BONES AND SOFT TISSUES: No acute osseous lesion. Soft tissues are unchanged. UPPER ABDOMEN: No free air under the diaphragm. IMPRESSION: 1. Stable support lines and tubes. 2. No interval change in multifocal airspace opacities. Signed by: Natasha Gong MD on 05/25/2020 10:36 AM
--- NOTE | 2020-05-25 11:01 | Progress Note ---
DATE: Cardiology Progress Note SUBJECTIVE: Case discussed with bedside nurse and Pulmonary Critical Care. The patient still persistent bacteremia and leukocytosis. OBJECTIVE: VITAL SIGNS: Temperature is 98.6, heart rate is 95, respirations are 32, blood pressure is 106/61, oxygen saturation 100% on mechanical ventilation with an FiO2 of 30. Physical examination not performed due to isolation. LABORATORY DATA: Reveals a creatinine of 4.7, potassium of 3.4, white blood cell count of 30.4, and hemoglobin 9.7. IMPRESSION: 1. Tsc-HI-zakpudfwx myocardial infarction. 2. Acute on chronic systolic congestive heart failure. 3. Septic shock. 4. Paroxysmal atrial fibrillation. 5. Presence of a permanent pacemaker. 6. Bacteremia. 7. Coronary artery disease, status post coronary bypass graft surgery. 8. Altered mental status. RECOMMENDATIONS: The patient has been on a heparin infusion since May 18. We can discontinue the heparin infusion and switch to DVT prophylaxis dosing subcutaneously. Continue all the current cardiovascular medications. The patient with an increased white count and persistent bacteremia and we were notified that Infectious Disease is wanting a transesophageal echocardiogram. I doubt this would provide much benefit to his clinical course as he is not a surgical candidate at this point in time. We will repeat a transthoracic echocardiogram. Continue infectious treatment with antibiotics. Continue wean vasopressors. Altered mental status, workup per Neurology. Shahzad Whatley DO [facility]/MODL /[id number]
--- NOTE | 2020-05-25 11:02 | NUR ---
improved responsivity since last visit more abusable and reactive to environment vs 98.8 77 116/85 pupils right one appear surgical or not perfectly round- 2mm and non reactive left pupils 2 mm, reactive to light responds to dolls eyes without apparent occuloparesis ent no nuchal rigidty rrr cta- rhonchus abd soft, reflexes diminished patient blinks to corneal stimulation shuts eyes to nox stim does not follow commands or focus on examiner with eyes a/p severe diffuse encephalopathy - toxic/infectious etiology eeg -2-3 hz low amplitude delta waves repeat CT will be ordred exam concerning for supratentorial and infratentorial dysfunction however, patient exam is not consistent with brain , but is very close to neurophysiological injury and extensive diffuse neurological dysfunction, previous notes mentioned anoxic injury, that was an error on my part. no periods of anoxia occured during this hospitalization, exam is showing diffuse dysfunction causinga similar global neurophysioloically suppressed syndrome, however he was not anoxic. we are seeing improvement in the clinical exam today, with some responsivity to external stimulation. exam remains non focal and EEG supports that finding clinically will continue to monitor. may initiate neurotropics once patient is hemodynamically stable
--- NOTE | 2020-05-25 11:05 | NUR ---
EEG 30 min study 10/20 international electrode placement system, read in bipolar montage EEG data: 2-3 hz low amplitude delta waves continuous without reactivity to stimulation EEG interpretation abnormal III Generalized slowing EEG is consistent with a severe diffuse encephalopathy. no evidence of seizure activity or focal slowing noted. minimally to nonresponsive to stimuli during recording period. repeat study warranted if concern for comatose state
--- NOTE | 2020-05-25 12:06 | Progress Note ---
DATE: SUBJECTIVE: The patient is still having tachypnea and respiratory alkalosis. He still is not responding well despite sedation being held. Blood cultures are growing out persistent Staph aureus. His antibiotics were adjusted by Infectious Disease. PHYSICAL EXAMINATION: VITAL SIGNS: The blood pressure is 99/56, heart rate is 97. The patient is on a SIMV at a set rate of 16 with a pressure support of 10. He is breathing in the mid 30s. FiO2 is set at 30%. HEENT: Shows no facial swelling or erythema. LYMPHATIC: Shows no submandibular, cervical, or supraclavicular adenopathy. CARDIAC: Reveals regular rate and rhythm with normal S1, S2. LUNGS: Auscultation of lungs reveals rhonchorous breath sounds bilaterally. There is no wheezing. ABDOMEN: Soft and nontender. There is no rebound or guarding. EXTREMITIES: Shows no leg edema or calf tenderness. The patient's great toe on the right side has dry gangrene. LABORATORY DATA: BUN to creatinine ratio is 52 to 4.7, and the carbon dioxide is 21. The potassium is 3.4. White blood cell count is 30.47. The hemoglobin is 9.7, platelet count is 112. Microbiological data shows Staph aureus. IMPRESSION: 1. Persistent Staph aureus bacteremia and severe sepsis, present on admission. 2. Osteomyelitis of the great toe on the right side. 3. Possible endocarditis. 4. Acute on chronic renal failure. 5. Metabolic encephalopathy. 6. Thrombocytopenia. 7. Feeding tube intolerance. 8. Atrial fibrillation. 9. Myocardial infarction. PLAN: 1. Continue vancomycin with dialysis along with nafcillin and low-dose meropenem. 2. Continue to wean down vasopressin and Levophed as tolerated. 3. Continue SIMV mode of ventilation and monitor blood gas. 4. Continue Lantus insulin with intermittent regular insulin. 5. Continue Reglan. 6. Enteral feedings as tolerated. 7. Case discussed with Neurology, Infectious Disease, Nursing, Respiratory, and Nephrology. Greater than 35 minutes in direct critical care time. Tomas Gupta MD [facility]/MODL /[id number]
[2020-05-25] MEDS: AMIODARONE HCL 900 MG in DEXTROSE 5% 500ML 500 ML IV SCH (12:49)
--- NOTE | 2020-05-25 13:56 | Progress Note ---
DATE: 05/25/2020 SUBJECTIVE: The patient at bedside, intubated. No change. OBJECTIVE: VITAL SIGNS: Has a pulse rate of 106, afebrile with a respiration rate of 33, O2 saturation at 100% with a blood pressure of 100/57, oxygen flow on mechanical ventilator. LABORATORY DATA: Noted as a white blood cell count now 30.47. Right great toe, stable for now, has gangrenous changes noted. Cyanosis to the forefoot aspect of the right lower extremity. No foul smell, but a little worse, skin temperature cold to the touch to both lower extremities with pedal pulses nonpalpable. ASSESSMENT: 1. Peripheral arterial disease. 2. Gangrene cellulitis with ischemic foot. PLAN: We will continue local wound care with diluted wet-to-dry Betadine. Continue IV antibiotics such as vancomycin. X-rays 3 views will be ordered. We will continue to follow. ОЛЕГ Blake/AVI /[id number]
--- NOTE | 2020-05-25 15:32 | Progress Note ---
DATE: 05/25/2020 SUBJECTIVE: He remains on the ventilator. He is tachypneic, not responding. He does have Staph aureus in the blood. He has osteomyelitis on the right foot. PHYSICAL EXAMINATION: GENERAL: Lying in ICU bed, orally intubated, breathing above the ventilator. VITAL SIGNS: Temperature is 98.6, pulse 92, blood pressure 100/57. EXTREMITIES: Trace edema. CHEST: Occasional rhonchi. NEURO: Appears sedated. LABORATORY DATA: PH is 7.51, serum CO2 of 21, K 3.4, creatinine 4.7, BUN 52. Chest x-ray is showing multiple opacities. ASSESSMENT: End-stage renal disease, alkalosis, mostly respiratory underlying sepsis and pneumonia. PLAN: Hemodialysis per usual schedule. Unfortunately, we cannot drop the bicarbonate level in the dialysis fluid below 30 mg/L, so it may worsen the alkalosis if I do extra dialysis on him. Conventionally, however this would not be an indication. We will follow along. MD JD Linder/MODL /[id number]
--- NOTE | 2020-05-25 16:55 | Diagnostic Imaging Report ---
X-ray 3 views of the foot. HISTORY: Pain. COMPARISON: Foot x-ray on 05/21/2020. FINDINGS/impression: There is interval placement of overlying dressing material which obscures optimal assessment of the osseous and soft tissue structures. There is redemonstration of soft tissue irregularity and cortical defect in the distal phalanx of the great toe, second and third toes. Redemonstration of erosive changes of the second and third distal metatarsal heads as well as the proximal and distal phalanges. There is near complete destruction of the second and third metatarsophalangeal joints. Extensive atherosclerotic vascular calcifications. IMPRESSION: Redemonstration of soft tissue irregularities and erosive changes of the great toe, second and third toes as detailed above. This constellation of findings are most compatible with acute on chronic changes of osteomyelitis. Signed by: Natasha Gong MD on 05/25/2020 4:51 PM
[2020-05-25] MEDS: INSULIN GLARGINE 100 UNITS/ML VIAL SQ SCH (21:32)
[2020-05-26] VITALS (24 sets, daily range): BP systolic 82–110; BP diastolic 46–86
[2020-05-26] MEDS: NAFCILLIN SOD 2 GM/NS 100ML 100 ML IV SCH ×6 (01:25→21:38)
[2020-05-26] MEDS: METOPROLOL TARTRATE 25 MG TAB PO SCH ×2 (04:00→15:57)
[2020-05-26] MEDS: FAMOTIDINE 20 MG/2 ML VIAL IV SCH ×2 (04:19→16:03)
[2020-05-26] MEDS: METOCLOPRAMIDE HCL 10 MG/2ML VIAL IV SCH ×3 (05:51→21:39)
[2020-05-26 06:23] LABS: BASOPHILS # (AUTO) 0.1 (0.0-0.1); BASOPHILS % 0.5 % (0.0-1.0); EOSINOPHILS % 0.1 % (0.0-6.0); HEMATOCRIT 30.1 % (38.2-49.6); HEMOGLOBIN 9.9 g/dL (14.0-18.0); LYMPHOCYTES # (AUTO) 0.9 (1.0-3.2); LYMPHOCYTES % 3.3 % (18.0-39.1); MEAN CORPUSCULAR HGB CONC 32.9 g/dL (31-35); MEAN CORPUSCULAR VOLUME 94.4 fL (81-99); MONOCYTES % 3.5 % (4.4-11.3); NEUTROPHILS # (AUTO) 24.9 (2.1-6.9); NEUTROPHILS % 86.9 % (38.7-80.0); PLATELET COUNT 171 x10e3/uL (140-360); RED BLOOD COUNT 3.19 x10e6/uL (4.3-5.7); RED CELL DISTRIBUTION WIDTH 19.7 % (11.7-14.4)
[2020-05-26 06:50] LABS: ABG PCO2 25 mmHg (35-45); ABG PH 7.55 (7.35-7.45); ABG PO2 116 mmHg (80-105)
[2020-05-26 06:51] LABS: ABG HCO3 22 mmol/L (22-26); ABG TCO2 23
[2020-05-26] MEDS: VASOPRESSIN 60 UNIT in DEXTROSE 5% 50ML 57 ML IV PRN ×2 (06:58→23:31)
[2020-05-26 07:03] LABS: ALBUMIN/GLOBULIN RATIO 0.8 (0.8-2.0); ANION GAP 30.4 mmol/L (8-16); CREATININE, SERUM 6.67 mg/dL (0.72-1.25); POTASSIUM 3.4 mmol/L (3.5-5.1)
[2020-05-26 07:07] LABS: CALCIUM 6.9 mg/dL (8.4-10.2)
[2020-05-26] MEDS: INSULIN REGULAR, HUMAN 100 UNIT/1 ML 3ML VIAL SQ SCH ×3 (07:48→18:11)
[2020-05-26] MEDS ORDERED: POTASSIUM CHLORIDE 20MEQ/100ML 200 ML IV ONE ×2 (08:30)
[2020-05-26 09:02] LABS: BAND NEUTROPHILS % (MANUAL) 1 %; EOSINOPHILS % (MANUAL) 1 % (0-7); LYMPHOCYTES % (MANUAL) 4 % (19-48); MONOCYTES % (MANUAL) 4 % (3.4-9.0); NEUTROPHILS % (MANUAL) 90 % (40-74); NUCLEATED RED BLOOD CELLS 3
[2020-05-26 09:03] LABS: ANISOCYTOSIS MODERATE; POLYCHROMASIA MODERATE; RBC MORPHOLOGY COMMENT ABNORMAL
[2020-05-26 09:04] LABS: OVALOCYTES FEW; PLATELET ESTIMATE ADEQUATE; PLATELET MORPHOLOGY COMMENT FEW LARGE; TARGET CELLS FEW
[2020-05-26] MEDS: ASPIRIN 81 MG CHEW TAB PO SCH (09:14)
[2020-05-26] MEDS: LACTULOSE SYRUP 20 GM/30 ML UDC PO SCH ×3 (09:16→21:38)
[2020-05-26] MEDS: CLOPIDOGREL BISULFATE 75 MG TAB PO SCH (09:16)
[2020-05-26] MEDS: MEROPENEM 500MG/ NS 50ML 100 ML IV SCH (09:59)
[2020-05-26] MEDS ORDERED: POTASSIUM CHLORIDE 20MEQ/15ML UDC NG ONE (10:15)
[2020-05-26] MEDS ORDERED: CALCIUM CHLORIDE 13.6 MEQ in SODIUM CHLORIDE 0.9% 100 ML 100 ML IV ONE (11:00)
--- NOTE | 2020-05-26 11:48 | NUR ---
IM- progress note O/N see below ROS: unreliable v/s; revd PE INTUBATED anicteric ns1s2 reduced bs soft nt nd RIGHT FOOT WITH 2ND AND 3RD DIGITS PARTIAL AMPUTATIONS WELL HEALED; GREAT TOE WITH NECROSIS APPEARING CHANGES. skin dry flat affect NOT AWAKE; labs/meds revd A/P: 69yoM A.fib with RVR- IV amio/BB/AC Intractable N/V- antiemetics NSTEMI- heparin; hold statin with elevated liver fn; ASA+plavix; cardio eval; echo; check lipids. Acute on Chr Systolic CHF- HD for fluid removal Pulmonary edema- as above CAD with hx CABG- cont BB ESRD - HD per nephr Hypertensive heart ds- cont BB Hyperbilirubinemia- f/u COVID testing Transaminitis- as above Thrombocytopenia- monitor on AC AOCD- monitor on AC Secondary hyperparathyroidism Prop: AC Dispo: cct>35mins. f/u COVID testing; HD; antiemetics; AV blockade 9-6-20 HTG; Tn increased to 9; possible cirrhosis; A.fib with RVR- cardioversion pending; Right foot great toe Infection/DFU - IV abx; podiatry consult; cct>35mins 9-7 Tn 49; Hyponatremia; Worsened WBC; cont antimicrobials and vent support; very sick patient; continue care in ICU. 05/21 intubated; septic shock on pressor; Osteomyelitis of right foot great toe- Podiatry consulted; cct>35mins 9-9 growth detected in blood; f/u; con antimicrobials; remains very ill. CT head done few days ago negative. 9-10 hyperbilirubinemia- check NH3 levels; Staph aureus infected sputum- f/u spp. 9-11 Hyperammonemia 300- Hepatic encephalopathy- start lactulose; f/u EEG ordered by neurology. f/u labs 9-12 Anoxic brain injury; Bacteremia- species pending; Acute resp failure; Liver failure; Prognosis poor; left ; d/w son and by telephone; 05-26 Diffuse encephalopathy; no seizure activity on EEG; cont care; will further discuss with family; Persistent Staph aureus Bacteremia; MELVA MENDEZ MD, PHD.
--- NOTE | 2020-05-26 12:20 | Progress Note ---
DATE: 05/26/2020 SUBJECTIVE: Remains intubated. Blood pressure is still low, presumably source of sepsis is his foot. OBJECTIVE: VITAL SIGNS: Heart rate 108, blood pressure 100/56. CHEST: With occasional heart sounds. EXTREMITIES: Trace edema. LABORATORY DATA: K is slightly low. Calcium is 6.9. Serum CO2 of 17 with pH of high at 7.55 with an appropriate drop in pCO2 of 25. ASSESSMENT: 1. End-stage renal disease. 2. Sepsis. 3. Status post myocardial infarction. 4. Atrial fibrillation. 5. Hypocalcemia. 6. Hypokalemia. 7. Mixed acid-base disorder. He does have a metabolic acidosis with increased anion gap from lack of kidney function. However, he has a significant respiratory alkalosis presumably from a sepsis. There is concern for any potentially SEED COLLECTOR event. 8. Underlying foot infection. PLAN: 1. At this point, unable to drop the bicarbonate concentration in the dialysate fluid, so we will hold off on dialysis till a.m. 2. Replete calcium. 3. KCl via feeding tube. 4. Overall remains ill. MD JAVI LinderK/MODL /[id number]
--- NOTE | 2020-05-26 13:13 | NUR ---
PTT 57.5, no change of heparin drip rate of 800 units/hr. PTT at 1800.
[2020-05-26] MEDS: HEPARIN 25,000 UNIT 800 UNIT in DEXTROSE 5% 250ML 250 ML IV SCH (16:18)
--- NOTE | 2020-05-26 16:52 | NUR ---
remains neurologically unchanged vs 108 100/56 pupils right one appear surgical or not perfectly round- 2mm and non reactive left pupils 2 mm, reactive to light responds to dolls eyes without apparent occuloparesis ent no nuchal rigidty tachycardic cta- rhonchus abd soft, reflexes diminished patient blinks to corneal stimulation shuts eyes to nox stim does not follow commands or focus on examiner with eyes a/p severe diffuse encephalopathy - toxic/infectious etiology eeg -2-3 hz low amplitude delta waves - slow and minimally responsvie repeat CT will be ordered - tomorrow ,evaluate for ischemic injuries exam concerning for supratentorial and infratentorial dysfunction however, patient exam is not consistent with brain , but is very close to neurophysiological injury and extensive diffuse neurological dysfunction, previous notes mentioned anoxic injury, that was an error on my part. no periods of anoxia occured during this hospitalization, exam is showing diffuse dysfunction causing a similar global neurophysioloically suppressed syndrome, h owever he was not anoxic. repeat EEG tomorrow to monitor neurophysiological changed clinically will continue to monitor. may initiate neurotropics once patient is hemodynamically stable
[2020-05-26] MEDS: AMIODARONE HCL 900 MG in DEXTROSE 5% 500ML 500 ML IV SCH (21:04)
[2020-05-26] MEDS: MEROPENEM 500MG/ NS 50ML 50 ML IV SCH (21:37)
[2020-05-26] MEDS: INSULIN GLARGINE 100 UNITS/ML VIAL SQ SCH (21:39)
[2020-05-26] MEDS: ACETAMINOPHEN 325 MG TAB PO PRN (23:31)
[2020-05-27] VITALS (25 sets, daily range): BP systolic 90–119; BP diastolic 49–69
[2020-05-27] MEDS: INSULIN REGULAR, HUMAN 100 UNIT/1 ML 3ML VIAL SQ SCH ×5 (00:17→23:38)
[2020-05-27] MEDS: NAFCILLIN SOD 2 GM/NS 100ML 100 ML IV SCH ×6 (01:06→21:58)
[2020-05-27] MEDS: METOPROLOL TARTRATE 25 MG TAB PO SCH ×2 (04:00→16:00)
--- NOTE | 2020-05-27 04:53 | Diagnostic Imaging Report ---
History:Unresponsive Comparison studies: None Technique: Axial images were obtained from the skull base to the vertex. Coronal and sagittal images reconstructed from the axial data. Dose modulation, iterative reconstruction, and/or weight based adjustment of the mA/kV was utilized to reduce the radiation dose to as low as reasonably achievable. Intravenous contrast: None Findings: Scalp/skull: No abnormalities. Extra-axial spaces: No masses. No fluid collections. Brain sulci: Moderately prominent. Ventricles: Moderate compensatory dilatation. No hydrocephalus. Parenchyma: Subtle hypodensities in the supratentorial white matter are small vessel ischemic changes. An old lacunar insult is centered in the left precentral centrum semiovale white matter. No masses, hemorrhage, acute or chronic cortical vascular insults. Sellar/suprasellar region: No abnormalities. Craniocervical junction: Patent foramen magnum. No Chiari one malformation. Incidental findings: Coarse calcifications in the carotid siphons and vertebral arteries. Impression: No acute intracranial abnormalities. Chronic findings: 1. Moderate generalized volume loss. 2. Mild supratentorial white matter small vessel ischemic changes. 3. Focal lacunar insults in the left precentral centrum semiovale white matter. Signed by: Dr. Justino Garcia M.D. on 05/27/2020 4:49 AM
[2020-05-27] MEDS: FAMOTIDINE 20 MG/2 ML VIAL IV SCH ×2 (05:12→16:06)
[2020-05-27] MEDS: METOCLOPRAMIDE HCL 10 MG/2ML VIAL IV SCH ×3 (05:13→23:38)
--- NOTE | 2020-05-27 05:50 | Diagnostic Imaging Report ---
EXAMINATION: CHEST SINGLE (PORTABLE) INDICATION: Pulmonary infiltrates COMPARISON: Chest x-ray 05/25/2020 FINDINGS: TUBES/LINES/DEVICES: Right IJ CVC, tip in the mid SVC. ET tube tip in the lower intrathoracic trachea. Enteric tube courses into the left upper abdomen, tip out of field of view. Stable right chest cardiac device with leads in the right atrium, right ventricle, and coronary sinus.. LUNGS: Normal lung volumes. Mild improved aeration of both lungs with decreased multifocal airspace opacities. Prominent central pulmonary vasculature. PLEURA: No pleural effusion or pneumothorax. HEART AND MEDIASTINUM: Cardiac size is mildly enlarged. Surgical changes along the mediastinum. BONES AND SOFT TISSUES: Unchanged. Sternotomy wires intact. UPPER ABDOMEN: No free air under the diaphragm. IMPRESSION: Mild improved aeration of both lungs with decreased multifocal airspace opacities. Signed by: Sebastian Guo DO on 05/27/2020 5:47 AM
[2020-05-27 06:20] LABS: BASOPHILS % 0.1 % (0.0-1.0); HEMATOCRIT 28.4 % (38.2-49.6); HEMOGLOBIN 9.3 g/dL (14.0-18.0); MEAN CORPUSCULAR HEMOGLOBIN 31.4 pg (28-32); MEAN CORPUSCULAR HGB CONC 32.7 g/dL (31-35); MEAN CORPUSCULAR VOLUME 95.9 fL (81-99); MONOCYTES % 3.1 % (4.4-11.3); NEUTROPHILS # (AUTO) 28.4 (2.1-6.9); NEUTROPHILS % 88.3 % (38.7-80.0); PLATELET COUNT 208 x10e3/uL (140-360); RED BLOOD COUNT 2.96 x10e6/uL (4.3-5.7); RED CELL DISTRIBUTION WIDTH 21.3 % (11.7-14.4)
[2020-05-27 06:44] LABS: ALBUMIN 2.7 g/dL (3.5-5.0); ALBUMIN/GLOBULIN RATIO 0.7 (0.8-2.0); ANION GAP 28.9 mmol/L (8-16); CREATININE, SERUM 7.71 mg/dL (0.72-1.25); POTASSIUM 3.9 mmol/L (3.5-5.1)
[2020-05-27 06:53] LABS: CALCIUM 6.2 mg/dL (8.4-10.2)
--- NOTE | 2020-05-27 07:35 | NUR ---
remains neurologically unchanged 118 100.3 102/57 pupils right one appear surgical or not perfectly round- 2mm and non reactive left pupils 2 mm, reactive to light responds to dolls eyes without apparent occuloparesis patient shuts eyes from corneal and eye lash stimulation but does not follow comamnds no nuchal rigidty tachycardic cta- rhonchus abd soft, reflexes diminished patient blinks to corneal stimulation shuts eyes to nox stim does not follow commands or focus on examiner with eyes a/p severe diffuse encephalopathy - toxic/infectious etiology initial eeg -2-3 hz low amplitude delta waves - slow and minimally responsive repeat CT will be ordered - tomorrow ,evaluate for ischemic injuries repeat EEG today repeat CT today. eval for neurostructural and neurophysiological changes exam concerning for supratentorial and infratentorial dysfunction however, patient exam is not consistent with brain , but is very close to neurophysiological injury and extensive diffuse neurological dysfunction, previous notes mentioned anoxic injury, that was an error on my part. no periods of anoxia occured during this hospitalization, exam is showing diffuse dysfunction causing a similar global neurophysioloically suppressed syndrome, however he was not anoxic. repeat EEG tomorrow to monitor neurophysiological changed clinically will continue to monitor. may initiate neurotropics once patient is hypodermically stable
[2020-05-27] MEDS ORDERED: CALCIUM GLUCONATE 10% INJ 9.3 MEQ in SODIUM CHLORIDE 0.9% 100 ML 100 ML IV ONE (08:00)
[2020-05-27] MEDS: CLOPIDOGREL BISULFATE 75 MG TAB PO SCH (08:24)
[2020-05-27] MEDS: ASPIRIN 81 MG CHEW TAB PO SCH (08:24)
[2020-05-27] MEDS: LACTULOSE SYRUP 20 GM/30 ML UDC PO SCH ×3 (08:24→21:58)
--- NOTE | 2020-05-27 09:37 | Progress Note ---
DATE: 05/27/2020 SUBJECTIVE: The patient was seen at bedside, intubated, not responsive to verbal stimuli. OBJECTIVE: VITAL SIGNS: Afebrile, pulse rate 110, respirations 28, blood pressure 90/53, O2 saturation 100% on mechanical ventilator. LABORATORY DATA: Noted. White blood cell count now 32.10. Right foot looking about the same, necrotic right great toe with very cold feet to touch to both lower extremities. Pedal pulses are barely to nonpalpable. ASSESSMENT: Severe ischemic foot, gangrene right great toe with cellulitis. PLAN: Continue IV antibiotics. Continue local wound care. Continue offloading. Prognosis not good. ОЛЕГ Blake/MODL /[id number]
[2020-05-27 10:01] LABS: ABG HCO3 16 mmol/L (22-26); ABG PCO2 30 mmHg (35-45); ABG PH 7.34 (7.35-7.45); ABG PO2 108 mmHg (80-105); ABG TCO2 17
--- NOTE | 2020-05-27 10:30 | NUR ---
IM- progress note O/N see below ROS: unreliable v/s; revd PE INTUBATED anicteric ns1s2 reduced bs soft nt nd RIGHT FOOT WITH 2ND AND 3RD DIGITS PARTIAL AMPUTATIONS WELL HEALED; GREAT TOE WITH NECROSIS APPEARING CHANGES. skin dry flat affect NOT AWAKE; labs/meds revd A/P: 69yoM A.fib with RVR- IV amio/BB/AC Intractable N/V- antiemetics NSTEMI- heparin; hold statin with elevated liver fn; ASA+plavix; cardio eval; echo; check lipids. Acute on Chr Systolic CHF- HD for fluid removal Pulmonary edema- as above CAD with hx CABG- cont BB ESRD - HD per nephr Hypertensive heart ds- cont BB Hyperbilirubinemia- f/u COVID testing Transaminitis- as above Thrombocytopenia- monitor on AC AOCD- monitor on AC Secondary hyperparathyroidism Prop: AC Dispo: cct>35mins. f/u COVID testing; HD; antiemetics; AV blockade 9-6-20 HTG; Tn increased to 9; possible cirrhosis; A.fib with RVR- cardioversion pending; Right foot great toe Infection/DFU - IV abx; podiatry con sult; cct>35mins 9-7 Tn 49; Hyponatremia; Worsened WBC; cont antimicrobials and vent support; very sick patient; continue care in ICU. 05/21 intubated; septic shock on pressor; Osteomyelitis of right foot great toe- Podiatry consulted; cct>35mins 9-9 growth detected in blood; f/u; con antimicrobials; remains very ill. CT head done few days ago negative. 9-10 hyperbilirubinemia- check NH3 levels; Staph aureus infected sputum- f/u spp. 9-11 Hyperammonemia 300- Hepatic encephalopathy- start lactulose; f/u EEG ordered by neurology. f/u labs 9-12 Anoxic brain injury; Bacteremia- species pending; Acute resp failure; Liver failure; Prognosis poor; left ; d/w son and by telephone; 9-13 Diffuse encephalopathy; no seizure activity on EEG; cont care; will further discuss with family; Persistent Staph aureus Bacteremia; 9-14 Focal Left Lacunar Infarcts- likelyl Septic Embolic Strokes; continue antimicrobials; f/u echo; Replace Ca. Contact family about POC MELVA MENDEZ MD, PHD.
[2020-05-27] MEDS: MEROPENEM 500MG/ NS 50ML 50 ML IV SCH ×2 (10:31→21:58)
[2020-05-27] MEDS ORDERED: CALCIUM GLUCONATE 10% INJ 13.95 MEQ in SODIUM CHLORIDE 0.9% 100 ML 100 ML IV ONE (10:45)
[2020-05-27 10:49] LABS: BAND NEUTROPHILS % (MANUAL) 4 %; LYMPHOCYTES % (MANUAL) 5 % (19-48); METAMYELOCYTES % (MANUAL) 1 % (0-0); MONOCYTES % (MANUAL) 2 % (3.4-9.0); MYELOCYTES % (MANUAL) 3 % (0-0); NEUTROPHILS % (MANUAL) 85 % (40-74)
[2020-05-27 10:51] LABS: PLATELET ESTIMATE ADEQUATE; PLATELET MORPHOLOGY COMMENT NORMAL; POLYCHROMASIA MODERATE; RBC MORPHOLOGY COMMENT ABNORMAL
[2020-05-27 10:54] LABS: ANISOCYTOSIS MODERATE; HYPOCHROMASIA SLIGHT
--- NOTE | 2020-05-27 12:08 | Progress Note ---
DATE: SUBJECTIVE: The patient remains on SIMV mode of ventilation. He is currently set at a rate of 10 with a pressure support of 10 and he is breathing 20 to 30 times a minute. He remains on vasopressin at 0.04 as well as Levophed at 15 mcg. PHYSICAL EXAMINATION: VITAL SIGNS: The blood pressure is 105/60 and the heart rate is 120. Saturation is 100% on the above-mentioned ventilator settings. He has an oral endotracheal tube. He has a right IJ line. The site is clean. CARDIAC: Reveals regular rate and rhythm with normal S1 and S2. LUNGS: Auscultation of lungs shows decreased breath sounds at the bases. There is no wheezing. ABDOMEN: Soft and nontender. There is no rebound or guarding. EXTREMITIES: Shows no leg edema or calf tenderness. There is no cyanosis or clubbing. SKIN: Shows no rashes. NEUROLOGICAL: Shows no focal abnormalities. LABORATORY DATA: White blood cell count is 32.1, hemoglobin is 9.3, and the platelet count is 208. The BUN to creatinine ratio is 106 to 7.71. The carbon dioxide is 16. The albumin is 2.7. RADIOGRAPHIC DATA: CT scan of the brain shows focal lacunar insults in the left centrum ovale. IMPRESSION: 1. Methicillin sensitive Staph aureus bacteremia with septic shock present on admission. 2. Osteomyelitis of the great toe on the right side. 3. Possible endocarditis. 4. Acute on chronic renal failure. 5. Metabolic encephalopathy. 6. Atrial fibrillation. 7. Myocardial infarction. PLAN: 1. Continue current antibiotics. 2. Repeat echo was pending. 3. Continue current ventilator settings. 4. Continue pressors as needed. 5. Repeat dialysis today. Greater than 35 minutes in direct critical care time. Tomas Gupta MD [facility]/MODL /[id number]
--- NOTE | 2020-05-27 12:23 | Progress Note ---
DATE: 05/27/2020 Cardiology Progress note SUBJECTIVE: The patient was discussed with nursing staff. The patient remains intubated and unresponsive, on Levophed and vasopressin drips. He is planned for hemodialysis today. OBJECTIVE: VITAL SIGNS: Temperature 99.1 degrees, pulse 119, respiratory rate 29, blood pressure 116/54, and oxygen saturation 100% on mechanical ventilation. GENERAL: Ill-appearing man, no acute distress, intubated and unresponsive. LUNGS: Clear to auscultation bilaterally. No wheezes or crackles. CARDIOVASCULAR: Tachycardic, but regular. No murmur. Normal S1, S2. ABDOMEN: Soft, nontender. EXTREMITIES: No edema. CARDIAC MEDICATIONS: 1. Aspirin 81 mg p.o. daily. 2. Plavix 75 mg p.o. daily. 3. Levophed drip. 4. Vasopressin drip. 5. Amiodarone drip. 6. Heparin drip. LABORATORY DATA: WBC 32.1, hemoglobin 9.3, hematocrit 28.4, and platelets 208. Sodium 141, potassium 3.9, chloride 100, CO2 of 16, BUN 106, and creatinine 7.71. TELEMETRY: Telemetry was personally reviewed and interpreted revealing demand ventricular pacing, episode of wide-complex tachycardia was observed, concerning for ventricular tachycardia. IMPRESSION: 1. Non-ST elevation myocardial infarction. 2. Acute on chronic systolic heart failure. 3. Staphylococcus aureus bacteremia. 4. Septic shock secondary to above. 5. Acute hypoxic respiratory failure. 6. Paroxysmal atrial fibrillation. 7. Coronary artery disease, status post coronary artery bypass graft surgery. 8. Altered mental status. 9. Status post permanent pacemaker. 10. End-stage renal disease, on hemodialysis. 11. Hypertension. 12. Hyperlipidemia. RECOMMENDATIONS: Continue the patient on amiodarone drip. Continue heparin drip for CVA prophylaxis. Monitor the patient closely on telemetry. Keep potassium above 4 and magnesium above 2. Continue supportive care. Given his current illness, he is not a candidate for invasive coronary evaluation at this time. Continue medical management. In addition, the patient is not a surgical candidate, so NANO would not significantly change his plan of care. We will review repeat echocardiogram once it is complete. Antibiotics per Infectious Disease. Wean pressors as tolerated. Neurology to evaluate the patient's altered mental status. Thank you for this consult. We will continue to follow. MD ILDA Sheppard/AVI /[id number]
--- NOTE | 2020-05-27 12:29 | Progress Note ---
DATE: 05.27.20 SUBJECTIVE: He remains nonresponsive on the ventilator, breathing over the vent. He has a history of osteomyelitis, on significant pressors, not a good surgical candidate either for the foot. PHYSICAL EXAMINATION: GENERAL: Lying in bed. VITAL SIGNS: Temperature 100.3, pulse 110, blood pressure 90/53. CHEST: Occasional rhonchi. EXTREMITIES: Trace edema. ABDOMEN: Benign. NEURO: Unresponsive. IMAGING: Brain CT yesterday showed volume loss as well as small-vessel ischemic changes and focal lacking or insults. LABORATORY DATA: His pH has been somewhat high 7.55, serum CO2 of 16, anion gap 28, potassium 3.9. Creatinine was 7.7, BUN 106, calcium is low at 6.2. ASSESSMENT: 1. End-stage renal disease. 2. Diabetic nephropathy. 3. Sepsis with shock, and pressor requirements. 4. Respiratory failure. 5. Encephalopathy, which at this point is multifactorial. Of note, he was not waking up even when his BUN was as low as 50. PLAN: Hemodialysis today. We will try with lowest bicarb bath available. About 2 L ultrafiltration. Overall prognosis remains poor. Unfortunately, he is very unstable and may not be a surgical candidate in terms of his foot. We will follow along with you. very high risk of mortality MD JAVI LinderK/MODL /[id number] MTDD
--- NOTE | 2020-05-27 13:18 | Progress Note ---
DATE: Cardiology Progress Note SUBJECTIVE: No cardiovascular events. The patient is still nonresponsive, on mechanical ventilation. OBJECTIVE: VITAL SIGNS: Temperature is 98.7 and heart rate ranges from 95-102. GENERAL: Chronically ill-appearing man, nonresponsive, mechanically ventilated. CARDIOVASCULAR: Irregular rhythm. LUNGS: Diminished breath sounds at bases. EXTREMITIES: Right wound wrapped and dressed. LABORATORY DATA: Reviewed, showed white blood cell count of 28.59 and hemoglobin is 9.9. Creatinine 6.67 and potassium 3.4. IMPRESSION: 1. Rkn-CB-yzakhzcka myocardial infarction. 2. Kjvze-of-bmdjcwi systolic congestive heart failure. 3. Respiratory failure with hypoxia. 4. Septic shock. 5. Paroxysmal atrial fibrillation. 6. Presence of a permanent pacemaker. 7. Bacteremia. 8. Coronary artery disease, status post coronary bypass graft surgery. 9. Altered mental status. 10. Leukocytosis. 11. Bacteremia. RECOMMENDATIONS: We can discontinue his heparin infusion for his non-ST elevation myocardial infarction. He can switch to DVT prophylaxis dosing subcutaneously. Continue all current cardiovascular medications with the exception of switching amiodarone to p.o. 200 b.i.d. The patient does have increased white count with persistent bacteremia. Treatment team is requesting a transesophageal echocardiogram. I doubt this will provide much benefit to his clinical course as he is not a surgical candidate at this point in time. We will repeat a transthoracic echocardiogram. Continue to wean vasopressors and antibiotic therapies. DO ALINA Pham/MODL /[id number]
--- NOTE | 2020-05-27 13:22 | NUR ---
Nutrition Intervention Note RD Recommendation(s) for Physician: -When hemodynamically stable, recommend advancing TF of Vital AF to goal rate of 55 ml/hr (provides 1584 kcal, 99 g protein, and 1071 mL water) -Water flushes/fluid management per MD -If unable to advance TF to goal rate soon, consider TPN. Consult Nutrition for recommendations. Plan of Care: RD following, monitoring for tolerance and adequacy Nutrition reason for involvement: follow up RD Assessment 05/27: Follow up. Pt remains intubated, off sedation, and on 2 pressors. Pt non-responsive off sedation, high dose pressors per RN, and tolerating TF at 20 ml/hr currently due to pressor dosage. Pt supine currently. Plan for HD today. Pt discussed during MDR, prognosis poor. Current TF rec's remain appropriate. Pt not meeting needs currently. Chart reviewed. Will continue to monitor. 05/23: Follow up. Pt remains intubated and is receiving Glucerna 1.2 @ 20 mL/hr. Recommendations provided. RD to manage TF order per Dr. Gupta. Will continue to monitor. (05/20/20) Pt is a 69 year old male admitted with afib with RVR, CHF, ESRD, and NSTEMI. Pt is receiving dialysis. Pt was intubated yesterday; therefore, unable to obtain nutrition history from pt at this time. It is noted that pt is primarily [place] speaking. Per chart, pt reported unsure weight loss and a decreased appetite prior to admission. Per weight history, pt weighed 155 lbs in May 2018. Therefore, no significant weight loss is evident. Recommend initiating enteral nutrition if pt is to remain intubated and consult RD. Will continue to monitor. Principal Problems/Diagnoses: afib with RVR, CHF, ESRD, and NSTEMI PMH: ESRD, diabetes, HTN GI: LBM 05/27- diarrhea Skin: suspected DTI R heel and toe, sacrum stage II PU, +1 edema Labs: 05/27: Na 141, K 3.9, BUN 106, Cr 7.71, Gluc 256, Ca 6.2, POC Gluc 210-245 05/23: Na 132, K 4.2, BUN 73, Cr 5.83, Glu 354, Ca 8.0, Total Bili 3.5, AST 65 (05/20) Na 129, BUN 61, Cr 8.19, Glu 280, Ca 7.9, AST 140, ALT 90 Meds: lactulose, insulin, Ca Gluconate IVPB, abx, reglan, zofran, colace, pepcid, lantus, levophed drip, vasopressin drip, amiodarone drip Ht: 65 inc Wt: 143 lbs (05/27) 145 lbs (05/22) 150 lbs (05/19) weight fluctuations likely due to dialysis BMI: 24.1 kg/m2 IBW:136 lbs Malnutrition Evaluation (05/23/20) The patient does not meet criteria for a specified degree of malnutrition at this time. Will re-evaluate at follow-up as appropriate. Energy intake: <50% of estimated energy requirements for 5 days Weight loss: no significant weight loss is evident per weight history, weight fluctuations due to dialysis Fat loss: unable to evaluate Muscle loss: unable to evaluate Supporting Evidence: Fluid accumulation: no edema per chart Functional Status: unable to assess Nutrition Prescription (Diet Order): Vital AF at 55 ml/hr, currently infusing at 20 ml/hr (576 kcal and 36 gm protein) Estimated Nutritional Needs: 1365-0004 calories/day (20-25 kcal/kg CBW) Weight used: 145 lbs 99- 130 g protein/day (1.5-2 g pro/kg CBW) Weight used: 145 lbs Diet Adequacy: Not meeting calorie needs, Not meeting protein needs Tolerance: tolerating trickle feeds Diet Education Needs Assessment: Diet education not indicated, patient is intubated Nutrition Care Level: high Nutrition Diagnosis: Inadequate oral intake related to mechanical ventilation as evidenced by pt requiring enteral nutrition. Goal: Patient will meet 75-100% of estimated needs by follow up Progress: goal not met Interventions: -Composition, Rate, Route, Recommended Modifications Monitoring/Evaluation: -Total energy intake, Total protein intake, Weight change, Formula/Solution Signed: Bindu Mensah RD, LD, [facility]
--- NOTE | 2020-05-27 13:24 | Progress Note ---
DATE: SUBJECTIVE: The patient is currently on a mechanical ventilator. He is set at a PRVC with tidal volume of 350 and a sedimentation rate of 20, although he is breathing 20 times a minute. His FiO2 is at 35%. His PEEP is set at 6. He remains on vasopressin at 0.07 and Levophed at 9 mcg. The patient is still receiving enteral feedings. He is still difficult to arouse. He only responds minimally to noxious stimuli. OBJECTIVE: VITAL SIGNS: The blood pressure is 100/56 and the saturation is 100%. Respiratory rate is 30. HEENT: Shows no facial swelling or erythema. LYMPHATIC: Shows no submandibular, cervical, or supraclavicular adenopathy. CARDIAC: Reveals regular rate and rhythm with normal S1 and S2. LUNGS: Auscultation of lungs reveals clear breath sounds bilaterally. There is no wheezing. ABDOMEN: Soft, nontender. There is no rebound or guarding. EXTREMITIES: Shows no leg edema or calf tenderness. There is no cyanosis or clubbing. SKIN: Shows no rash. LABORATORY DATA: White blood cell count is 28.6 and hemoglobin 9.9. The platelet count is 171. The BUN to creatinine ratio is 85 to 6.67. The carbon dioxide is 17 and the chloride is 99. Potassium is 3.4. ASSESSMENT: 1. Staph aureus bacteremia and sepsis, present on admission. 2. Osteomyelitis of the great toe on the right side. 3. Possible endocarditis. 4. Acute on chronic renal failure. 5. Metabolic encephalopathy. 6. Atrial fibrillation. 7. Myocardial infarction. PLAN: 1. Continue current antibiotics, vancomycin, nafcillin, and meropenem. 2. Continue to wean pressures as tolerated. 3. Continue current ventilator settings. 4. Continue insulin and monitor blood sugars. 5. Continue dialysis as needed. Greater than 35 minutes in direct critical care time. Tomas Gupta MD [facility]/MODL /[id number]
[2020-05-27] MEDS: VANCOMYCIN 1GM/NS 250 ML 250 ML IV SCH (16:07)
[2020-05-27] MEDS: HEPARIN 25,000 UNIT 800 UNIT in DEXTROSE 5% 250ML 250 ML IV SCH (17:51)
--- NOTE | 2020-05-27 19:16 | Progress Note ---
DATE: 05/26/2020 SUBJECTIVE: The patient is at bedside, intubated. No change. OBJECTIVE: VITAL SIGNS: Afebrile, pulse rate 97, respiration rate 30, blood pressure 100/56, and O2 saturation 100%. EXTREMITIES: Right foot stable for now, gangrenous changes noted to the right great toe. X-rays were negative for any gas in the tissue, but does have destruction of the 2nd and 3rd metatarsal heads with distal destruction of the right distal phalanx. LABORATORY DATA: Show white blood cell count of 28.59, hemoglobin 9.9. ASSESSMENT: Osteomyelitis, severe peripheral arterial disease with cellulitis and dry gangrenous changes noted. PLAN: We will continue local wound care with diluted wet-to-dry Betadine. Continue offloading. Continue to follow. The patient not a good surgical candidate at this time. ОЛЕГ Blake/AVI /[id number]
[2020-05-27] MEDS: AMIODARONE HCL 900 MG in DEXTROSE 5% 500ML 500 ML IV SCH (23:37)
[2020-05-27] MEDS: INSULIN GLARGINE 100 UNITS/ML VIAL SQ SCH (23:38)
[2020-05-28] VITALS (26 sets, daily range): BP systolic 86–130; BP diastolic 43–68
[2020-05-28] MEDS: NAFCILLIN SOD 2 GM/NS 100ML 100 ML IV SCH ×6 (01:00→20:53)
[2020-05-28] MEDS: METOPROLOL TARTRATE 25 MG TAB PO SCH ×2 (04:00→15:00)
[2020-05-28] MEDS: FAMOTIDINE 20 MG/2 ML VIAL IV SCH ×2 (04:24→15:00)
[2020-05-28] MEDS: METOCLOPRAMIDE HCL 10 MG/2ML VIAL IV SCH ×3 (05:33→20:53)
[2020-05-28] MEDS: INSULIN REGULAR, HUMAN 100 UNIT/1 ML 3ML VIAL SQ SCH ×3 (06:31→17:46)
--- NOTE | 2020-05-28 06:31 | NUR ---
IM- progress note O/N see below ROS: unreliable v/s; revd PE INTUBATED anicteric ns1s2 reduced bs soft nt nd RIGHT FOOT WITH 2ND AND 3RD DIGITS PARTIAL AMPUTATIONS WELL HEALED; GREAT TOE WITH NECROSIS APPEARING CHANGES. skin dry flat affect NOT AWAKE; labs/meds revd A/P: 69yoM A.fib with RVR- IV amio/BB/AC Intractable N/V- antiemetics NSTEMI- heparin; hold statin with elevated liver fn; ASA+plavix; cardio eval; echo; check lipids. Acute on Chr Systolic CHF- HD for fluid removal Pulmonary edema- as above CAD with hx CABG- cont BB ESRD - HD per nephr Hypertensive heart ds- cont BB Hyperbilirubinemia- f/u COVID testing Transaminitis- as above Thrombocytopenia- monitor on AC AOCD- monitor on AC Secondary hyperparathyroidism Prop: AC Dispo: cct>35mins. f/u COVID testing; HD; antiemetics; AV blockade 9-6-20 HTG; Tn increased to 9; possible cirrhosis; A.fib with RVR- cardioversion pending; Right foot great toe Infection/DFU - IV abx; podiatry consult; cct>35mins 9-7 Tn 49; Hyponatremia; Worsened WBC; cont antimicrobials and vent support; very sick patient; continue care in ICU. 05/21 intubated; septic shock on pressor; Osteomyelitis of right foot great toe- Podiatry consulted; cct>35mins 9-9 growth detected in blood; f/u; con antimicrobials; remains very ill. CT head done few days ago negative. 9-10 hyperbilirubinemia- check NH3 levels; Staph aureus infected sputum- f/u spp. 9-11 Hyperammonemia 300- Hepatic encephalopathy- start lactulose; f/u EEG ordered by neurology. f/u labs 9-12 Anoxic brain injury; Bacteremia- species pending; Acute resp failure; Liver failure; Prognosis poor; left ; d/w son and by telephone; 9-13 Diffuse encephalopathy; no seizure activity on EEG; cont care; will further discuss with family; Persistent Staph aureus Bacteremia; 14 Focal Left Lacunar Infarcts- likelyl Septic Embolic Strokes; continue antimicrobials; f/u echo; Replace Ca. 9-15 Poorly responsive; no response to pain. D/w eldest son Jonathan, who wants a letter for other family members to come from [place]. This will serve as his letter, which describes the grave/poor condition of the patient. MELVA MENDEZ MD, PHD.
[2020-05-28] MEDS: VASOPRESSIN 60 UNIT in DEXTROSE 5% 50ML 57 ML IV PRN (06:32)
[2020-05-28 06:48] LABS: BASOPHILS # (AUTO) 0.2 (0.0-0.1); BASOPHILS % 0.5 % (0.0-1.0); HEMOGLOBIN 8.5 g/dL (14.0-18.0); LYMPHOCYTES # (AUTO) 1.1 (1.0-3.2); MEAN CORPUSCULAR HEMOGLOBIN 31.5 pg (28-32); MEAN CORPUSCULAR HGB CONC 32.7 g/dL (31-35); MEAN CORPUSCULAR VOLUME 96.3 fL (81-99); MONOCYTES # (AUTO) 0.9 (0.2-0.8); MONOCYTES % 3.3 % (4.4-11.3); NEUTROPHILS # (AUTO) 24.7 (2.1-6.9); NEUTROPHILS % 87.9 % (38.7-80.0); PLATELET COUNT 235 x10e3/uL (140-360); RED CELL DISTRIBUTION WIDTH 22.5 % (11.7-14.4)
[2020-05-28 07:25] LABS: ALBUMIN 2.8 g/dL (3.5-5.0); ALBUMIN/GLOBULIN RATIO 0.7 (0.8-2.0); ANION GAP 30.7 mmol/L (8-16); CREATININE, SERUM 7.77 mg/dL (0.72-1.25); POTASSIUM 3.7 mmol/L (3.5-5.1)
[2020-05-28 07:33] LABS: CALCIUM 6.4 mg/dL (8.4-10.2)
[2020-05-28] MEDS: MEROPENEM 500MG/ NS 50ML 50 ML IV SCH ×2 (07:56→20:53)
[2020-05-28] MEDS: ASPIRIN 81 MG CHEW TAB PO SCH (07:56)
[2020-05-28] MEDS: CLOPIDOGREL BISULFATE 75 MG TAB PO SCH (07:57)
[2020-05-28] MEDS: LACTULOSE SYRUP 20 GM/30 ML UDC PO SCH ×3 (07:57→20:53)
[2020-05-28] MEDS ORDERED: MIDODRINE HCL 5 MG TABLET PO ONE (08:10)
[2020-05-28] MEDS ORDERED: CALCIUM GLUCONATE 10% INJ 9.3 MEQ in SODIUM CHLORIDE 0.9% 100 ML 100 ML IV ONE (08:30)
--- NOTE | 2020-05-28 08:30 | Diagnostic Imaging Report ---
TECHNIQUE: Frontal view of the chest. INDICATION: ^resp failure ^[id number] ^0620 COMPARISON: 05/27/2020. DISCUSSION: Limited evaluation due to portable technique. Lines and hardware: Tracheostomy tube projects 2.8 cm above the giuliano. Enteric tube is seen coursing inferiorly out of the field of view right chest wall triple lead pacemaker is stable. Right internal jugular central venous catheter is stable with tip projecting at the lower SVC. Overlying EKG leads are again noted. Heart and mediastinum: Cardiomediastinal silhouette is enlarged, stable. Stable midline sternotomy changes. Lungs and pleura: Continued improvement in bilateral multifocal airspace opacities. Negative for large effusion or pneumothorax. Soft tissues and bones: No acute abnormality. IMPRESSION: 1. Continued improvement in bilateral multifocal airspace opacities. 2. Stable support structures. Signed by: Maxim Reyes MD on 05/28/2020 8:27 AM
--- NOTE | 2020-05-28 08:59 | Progress Note ---
DATE: 05/28/2020 SUBJECTIVE: The patient is at bedside. No change. Intubated, nonresponsive. OBJECTIVE: VITAL SIGNS: Afebrile, pulse rate 107, respirations 26, blood pressure 94/53 with an O2 saturation of 98%. EXTREMITIES: Right great toe still about the same, gangrenous. Pedal pulses nonpalpable, very cool feet to touch to both lower extremities, right worse than left. LABORATORY DATA: Labs show white blood cell count dropping from 30-28. ASSESSMENT: Gangrene, ischemic foot with cellulitis. PLAN: Continue IV antibiotics. Continue local wound care with diluted wet-to-dry. Continue offloading. We will continue to follow. Prognosis not good. ОЛЕГ Blake/AVI /[id number]
--- NOTE | 2020-05-28 09:29 | Progress Note ---
DATE: 05/28/2020 SUBJECTIVE: Remains ventilated. Remains on pressors, quite ill, pH is settled down. He did not really tolerate much dialysis yesterday due to worsening tachycardia while on the machine. OBJECTIVE: GENERAL: Lying in ICU bed, intubated. VITAL SIGNS: Pulse 111, blood pressure 104/56. HEENT: ET tube. EXTREMITIES: Trace edema, right leg in bandage. CHEST: Occasional rhonchi. LABORATORY DATA: White count remains elevated at 28,000, hemoglobin 8.5, platelets are 235. They are actually improved. PH is 7.34, pCO2 of 30, pO2 of 108, potassium yesterday 3.9. Today's labs are still pending. ASSESSMENT: 1. End-stage renal disease. 2. Septic shock. 3. Right foot osteomyelitis. 4. Blood cultures are growing Staphylococcus aureus and sputum culture is also growing Stenotrophomonas. 5. Respiratory alkalosis, now with some metabolic acidosis from renal failure. 6. Minimal fluid overload; however, he does not really tolerate fluid challenge. PLAN: Continue antibiotics and blood pressure support per primary team. Attempted hemodialysis today. We will try a brief run and see how he does, try to give extra midodrine 10 mg predialysis to see if it will help. As noted, prognosis remains very poor. Minimal likelihood of coming out of this episode based on our experiences. We will follow along. MD JAVI LinderK/MODL /[id number]
--- NOTE | 2020-05-28 10:30 | Progress Note ---
DATE: Pulmonary Critical Care Progress Note SUBJECTIVE: The patient is receiving dialysis now. The patient remains on vasopressin 0.04 as well as Levophed at 25 mcg. The patient is continued on SIMV mode of ventilation with pressure support. PHYSICAL EXAMINATION: VITAL SIGNS: The blood pressure is 90/43 and the saturation is 100%. T-max 99.1. Pulse is 120. HEENT: Shows no facial swelling or erythema. There is an oral endotracheal tube. LYMPHATIC: Shows no submandibular, cervical or supraclavicular adenopathy. CARDIAC: Reveals regular rate and rhythm with normal S1 and S2. LUNGS: Auscultation of lungs shows decreased breath sounds at the bases. There is no wheezing. ABDOMEN: Soft and nontender. There is no rebound or guarding. EXTREMITIES: Shows no leg edema or calf tenderness. There is no cyanosis or clubbing. SKIN: Shows no rashes. NEUROLOGICAL: Shows no focal abnormalities. LABORATORY DATA: White blood cell count is 28.1 and the hemoglobin is 9.5. The platelet count is 235. The BUN to creatinine ratio is normal. The other electrolytes are within normal limits. The carbon dioxide is 14. Blood sugar is 250 IMPRESSION: 1. Staph aureus bacteremia with sepsis, present on admission. 2. Osteomyelitis of the great toe on the right side. 3. Possible endocarditis. 4. Acute on chronic renal failure. 5. Metabolic encephalopathy. 6. Atrial fibrillation. 7. Myocardial infarction. PLAN: 1. Continue current antibiotics. 2. Continue pressors. 3. Repeat ABG after dialysis. 4. Continue to monitor blood sugars and adjust insulin as needed. 5. Continue wound care. 6. Continue to monitor neurological status. Greater than 35 minutes in direct critical care time. Tomas Gupta MD [facility]/MODL /[id number]
[2020-05-28] MEDS: PHENYLEPHRINE 10MG/ML VIAL 40 MG in DEXTROSE 5% 250ML 250 ML IV SCH (11:44)
[2020-05-28] MEDS ORDERED: DIGOXIN INJ 0.25 MG/ML 2 ML AMP IV ONE (12:45)
--- NOTE | 2020-05-28 13:12 | Progress Note ---
DATE: 05/28/2020 Cardiology Progress Note SUBJECTIVE: The patient was discussed with nursing staff. He remains on Levophed and vasopressin. The patient remains intubated and unresponsive, currently receiving dialysis. OBJECTIVE: VITAL SIGNS: Temperature 99.1 degrees, pulse 129, respiratory rate 23, blood pressure 86/54, oxygen saturation 100% on mechanical ventilation. GENERAL: Frail, ill-appearing man in no acute distress, intubated and unresponsive. LUNGS: Clear to auscultation bilaterally. No wheezes or crackles. CARDIOVASCULAR: Tachycardic, irregularly irregular. No murmur. Normal S1 and S2. ABDOMEN: Soft and nontender. EXTREMITIES: No edema. CARDIAC MEDICATIONS: Plavix 75 mg p.o. daily, aspirin 81 mg p.o. daily, vasopressin drip, amiodarone drip, heparin drip, Levophed drip. LABORATORY DATA: WBC 28.1, hemoglobin 8.5, hematocrit 26, platelets 235. Sodium 142, potassium 3.7, chloride 101, CO2 of 14, BUN 106, creatinine 7.77. TELEMETRY: Telemetry was personally reviewed and interpreted, revealing atrial fibrillation with rapid ventricular response. IMPRESSION: 1. Non-ST elevation myocardial infarction. 2. Acute on chronic systolic heart failure. 3. Staphylococcus aureus bacteremia with suspected vegetation on the mitral valve apparatus by transthoracic echocardiogram. 4. Septic shock secondary to above. 5. Acute hypoxic respiratory failure. 6. Paroxysmal atrial fibrillation with rapid ventricular response. 7. Coronary artery disease status post coronary artery bypass graft surgery. 8. Altered mental status. 9. Status post permanent pacemaker. 10. End-stage renal disease, on hemodialysis. 11. Hypertension. 12. Hyperlipidemia. RECOMMENDATIONS: Continue the patient on amiodarone drip. Continue heparin drip for CVA prophylaxis. Monitor the patient closely on telemetry. His rate is poorly controlled. However, given his pressor requirements, we are unable to start beta blockers or calcium channel blockers. We will give one time dose of digoxin today. Continue supportive care. Given his current illness, he is not a candidate for invasive coronary angiography at this time. Continue medical management. In addition, the patient is not a surgical candidate even if he was found to have significant endocarditis, so NANO would not significantly change his plan of care. There is a mobile echodensity observed on the mitral valve apparatus, suspect vegetation. Antibiotics per Infectious Disease. Wean pressors as tolerated. Neurology to evaluate the patient's altered mental status. Thank you for this consult. We will continue to follow. Keila Pope MD [facility]/MODL /[id number]
[2020-05-28] MEDS ORDERED: DIGOXIN INJ 0.25 MG/ML 2 ML AMP ONE (13:56)
[2020-05-28] MEDS: HEPARIN 25,000 UNIT 800 UNIT in DEXTROSE 5% 250ML 250 ML IV SCH (16:00)
[2020-05-28] MEDS: AMIODARONE HCL 900 MG in DEXTROSE 5% 500ML 500 ML IV SCH (20:53)
[2020-05-28] MEDS: INSULIN GLARGINE 100 UNITS/ML VIAL SQ SCH (20:53)
[2020-05-29] VITALS (26 sets, daily range): BP systolic 94–124; BP diastolic 51–64
[2020-05-29] MEDS: HEPARIN 25,000 UNIT 800 UNIT in DEXTROSE 5% 250ML 250 ML IV SCH ×2
[2020-05-29] MEDS: INSULIN REGULAR, HUMAN 100 UNIT/1 ML 3ML VIAL SQ SCH ×5 (00:43→23:00)
[2020-05-29] MEDS: NAFCILLIN SOD 2 GM/NS 100ML 100 ML IV SCH ×6 (00:43→21:17)
[2020-05-29] MEDS: METOPROLOL TARTRATE 25 MG TAB PO SCH ×2 (04:00→15:56)
[2020-05-29] MEDS: FAMOTIDINE 20 MG/2 ML VIAL IV SCH ×2 (04:22→15:59)
[2020-05-29] MEDS: METOCLOPRAMIDE HCL 10 MG/2ML VIAL IV SCH ×3 (05:05→21:18)
[2020-05-29 05:47] LABS: BASOPHILS # (AUTO) 0.1 (0.0-0.1); BASOPHILS % 0.5 % (0.0-1.0); HEMATOCRIT 27.2 % (38.2-49.6); HEMOGLOBIN 9.1 g/dL (14.0-18.0); LYMPHOCYTES # (AUTO) 0.8 (1.0-3.2); LYMPHOCYTES % 2.6 % (18.0-39.1); MEAN CORPUSCULAR HGB CONC 33.5 g/dL (31-35); MEAN CORPUSCULAR VOLUME 95.8 fL (81-99); MONOCYTES % 3.5 % (4.4-11.3); NEUTROPHILS # (AUTO) 25.3 (2.1-6.9); NEUTROPHILS % 89.2 % (38.7-80.0); PLATELET COUNT 268 x10e3/uL (140-360); RED BLOOD COUNT 2.84 x10e6/uL (4.3-5.7); RED CELL DISTRIBUTION WIDTH 24.3 % (11.7-14.4)
[2020-05-29 06:05] LABS: ALBUMIN 2.8 g/dL (3.5-5.0); ALBUMIN/GLOBULIN RATIO 0.7 (0.8-2.0); ANION GAP 29.3 mmol/L (8-16); CREATININE, SERUM 7.02 mg/dL (0.72-1.25); POTASSIUM 3.3 mmol/L (3.5-5.1)
[2020-05-29 06:13] LABS: CALCIUM 6.5 mg/dL (8.4-10.2)
--- NOTE | 2020-05-29 06:14 | NUR ---
IM- progress note O/N see below ROS: unreliable v/s; revd PE INTUBATED anicteric ns1s2 reduced bs soft nt nd RIGHT FOOT WITH 2ND AND 3RD DIGITS PARTIAL AMPUTATIONS WELL HEALED; GREAT TOE WITH NECROSIS APPEARING CHANGES. skin dry flat affect NOT AWAKE; labs/meds revd A/P: 69yoM A.fib with RVR- IV amio/BB/AC Intractable N/V- antiemetics NSTEMI- heparin; hold statin with elevated liver fn; ASA+plavix; cardio eval; echo; check lipids. Acute on Chr Systolic CHF- HD for fluid removal Pulmonary edema- as above CAD with hx CABG- cont BB ESRD - HD per nephr Hypertensive heart ds- cont BB Hyperbilirubinemia- f/u COVID testing Transaminitis- as above Thrombocytopenia- monitor on AC AOCD- monitor on AC Secondary hyperparathyroidism Prop: AC Dispo: cct>35mins. f/u COVID testing; HD; antiemetics; AV blockade 9-6-20 HTG; Tn increased to 9; possible cirrhosis; A.fib with RVR- cardioversion pending; Right foot great toe Infection/DFU - IV abx; podiatry consult; cct>35mins 9-7 Tn 49; Hyponatremia; Worsened WBC; cont antimicrobials and vent support; very sick patient; continue care in ICU. 05/21 intubated; septic shock on pressor; Osteomyelitis of right foot great toe- Podiatry consulted; cct>35mins 9-9 growth detected in blood; f/u; con antimicrobials; remains very ill. CT head done few days ago negative. 9-10 hyperbilirubinemia- check NH3 levels; Staph aureus infected sputum- f/u spp. 9-11 Hyperammonemia 300- Hepatic encephalopathy- start lactulose; f/u EEG ordered by neurology. f/u labs 9-12 Anoxic brain injury; Bacteremia- species pending; Acute resp failure; Liver failure; Prognosis poor; left ; d/w son and by telephone; 9-13 Diffuse encephalopathy; no seizure activity on EEG; cont care; will further discuss with family; Persistent Staph aureus Bacteremia; 14 Focal Left Lacunar Infarcts- likelyl Septic Embolic Strokes; continue antimicrobials; f/u echo; Replace Ca. 9-15 Poorly responsive; no response to pain. D/w eldest son Jonathan, who wants a letter for other family members to come from [place]. This will serve as his letter, which describes the grave/poor condition of the patient. 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 d/w family again MELVA MENDEZ MD, PHD.
[2020-05-29] MEDS: VASOPRESSIN 60 UNIT in DEXTROSE 5% 50ML 57 ML IV PRN ×2 (06:30→20:59)
--- NOTE | 2020-05-29 07:40 | Diagnostic Imaging Report ---
TECHNIQUE: Frontal view of the chest. INDICATION: 69-year-old man with respiratory failure. COMPARISON: Chest radiograph 05/28/2020. FINDINGS: LINES/TUBES/DEVICES: Unchanged. LUNGS: Persistent airspace opacities in both lower lung zones, left greater than right. PLEURA: No pneumothorax or significant pleural effusion. HEART AND MEDIASTINUM: The cardiomediastinal silhouette is unchanged. Atherosclerotic calcifications in the thoracic aorta. SOFT TISSUES AND BONES: Unchanged median sternotomy wires. Soft tissues are unremarkable. IMPRESSION: No significant change since 05/28/2020. Signed by: Erick Perry MD on 05/29/2020 7:36 AM
[2020-05-29 08:06] LABS: ABG HCO3 16 mmol/L (22-26); ABG PCO2 28 mmHg (35-45); ABG PH 7.36 (7.35-7.45); ABG PO2 114 mmHg (80-105); ABG TCO2 17
[2020-05-29] MEDS ORDERED: CALCIUM CHLORIDE 13.6 MEQ in SODIUM CHLORIDE 0.9% 100 ML 100 ML IV ONE (09:00)
--- NOTE | 2020-05-29 09:03 | NUR ---
arousable looks at examiner 118 100.3 84/60 pupils right one appear surgical or not perfectly round- 2mm and non reactive left pupils 2 mm, reactive to light responds to dolls eyes without apparent occuloparesis patient shuts eyes from corneal and eye lash stimulation but does not follow comamnds no nuchal rigidty tachycardic cta- rhonchus abd soft, reflexes diminished patient blinks to corneal stimulation shuts eyes to nox stim does not follow commands or focus on examiner with eyes a/p severe diffuse encephalopathy - toxic/infectious etiology initial eeg -2-3 hz low amplitude delta waves - slow and minimally responsive repeat eeg - 3-5hz low amplitude delta theta waves- slow and minimally responsive repeat CT will be ordered - tomorrow ,evaluate for ischemic injuries repeat CT today.no substantial neuro-structural changes exam concerning for supratentorial and infratentorial dysfunction however, patient exam is not consistent with brain , but is very close to neurophysiological injury and extensive diffuse neurological dysfunction, previous notes mentioned anoxic injury, that was an error on my part. no periods of anoxia occured during this hospitalization, exam is showing diffuse dysfunction causing a similar global neurophysioloically suppressed syndrome, however he was not anoxic. clinically will continue to monitor. may initiate neurotropics once patient is hypodermically stable
[2020-05-29] MEDS: AMIODARONE HCL 900 MG in DEXTROSE 5% 500ML 500 ML IV SCH (09:04)
[2020-05-29] MEDS: MEROPENEM 500MG/ NS 50ML 50 ML IV SCH ×2 (09:04→20:13)
[2020-05-29] MEDS: CLOPIDOGREL BISULFATE 75 MG TAB PO SCH (09:04)
[2020-05-29] MEDS: LACTULOSE SYRUP 20 GM/30 ML UDC PO SCH ×3 (09:04→20:13)
[2020-05-29] MEDS: ASPIRIN 81 MG CHEW TAB PO SCH (09:04)
--- NOTE | 2020-05-29 09:04 | NUR ---
EEG 30 min study 10/20 international electrode placement system, read in bipolar montage EEG data: 3-5 hz low amplitude delta and theta waves intermittent reactivity to stimulation EEG interpretation abnormal III Generalized slowing EEG is consistent with a severe diffuse encephalopathy. no evidence of seizure activity or focal slowing noted. minimally to nonresponsive to stimuli during recording period. there has been improvement in the EEG since last diagnstic study
--- NOTE | 2020-05-29 09:27 | Progress Note ---
DATE: 05/29/2020 SUBJECTIVE: The patient at bedside. No change, intubated. OBJECTIVE: VITAL SIGNS: Afebrile, pulse rate 114, respiration 26, blood pressure 108/58, O2 saturation 100%. EXTREMITIES: Right great toe showing no changes, gangrenous changes noted to the right great toe with a very cold feet. Pedal pulses are nonpalpable. LABORATORY DATA: Labs show white blood cell count of 28.3. ASSESSMENT: Peripheral artery disease, ischemic foot with glynn gangrene and cellulitis. PLAN: We will continue diluted wet-to-dry Betadine. Continue offloading. Continue IV antibiotics. We will continue to monitor. Prognosis not good. ОЛЕГ Blake/AVI /[id number]
[2020-05-29] MEDS: PHENYLEPHRINE 10MG/ML VIAL 40 MG in DEXTROSE 5% 250ML 250 ML IV SCH (11:30)
--- NOTE | 2020-05-29 11:37 | Progress Note ---
DATE: 05/29/2020 SUBJECTIVE: Phosphorus came back high, which explains part of the hypocalcemia. Remains in shock on pressors. White count is still 28,000. Unfortunately, neither he is not a surgical candidate given his instability as well as recent myocardial infarction is also concerned for endocarditis possibly of the mitral valve. PHYSICAL EXAMINATION: GENERAL: Lying in ICU bed, ventilated. VITAL SIGNS: Heart rate 114, irregular. Blood pressure 108/58, pulse 26. CHEST: Occasional rhonchi. EXTREMITIES: Right leg is wrapped. HEENT: Endotracheal tube visible. LABORATORY DATA: K is 3.3, serum CO2 is 15, pH is 7.36, and calcium 6.5, but phosphorus is 9. ASSESSMENT: 1. Hypocalcemia, hyperphosphatemia, and end-stage renal disease. 2. Septic shock. 3. Pneumonia. 4. I presume mitral valve endocarditis. 5. esrd from dm, htn end organ damage 6. anemia is multifactorial Overall doing poorly. However, we are still trying all aggressive measures per family wishes. I think anticipated risk for mortality is very high. Plan on one more session of dialysis today to help better control any uremia present. We will give him 1 g of calcium chloride. We do not want to replace the calcium too aggressively as the phosphorus is quite high and can lead to metastatic calcification (this may more theoretical given the anticipated high mortality rate). Hayden Romero MD [facility]/MODL /[id number]
--- NOTE | 2020-05-29 11:45 | NUR ---
Database Support called pt's family to offer emotional/spiritual support. Pt's son states family is "worried" about his dad's health. Provided empathic listening and information on how to reach clinical rehab specialist, if needed. Will follow as able. SERA BOOKER Database Support Spiritual Care Department O: [phone]
--- NOTE | 2020-05-29 11:52 | Progress Note ---
DATE: Pulmonary Critical Care Progress Note. SUBJECTIVE: The patient is slightly more arousable. He does open his eyes, but he does not follow commands. He is receiving dialysis now. He is on amiodarone drip as well as a heparin drip. He is on Levophed at 16 mcg and vasopressin 0.08. PHYSICAL EXAMINATION: VITAL SIGNS: The patient is afebrile, the blood pressure is 108/58 and the saturation is 99%. His pulse is 110. His respiratory rate is 26. He is currently on SIMV mode of ventilation at a rate of 10 with a pressure support of 10. His tidal volume is set at 350. HEENT: Shows no facial swelling or erythema. LYMPHATIC: Shows no submandibular, cervical, or supraclavicular adenopathy. CARDIAC: Reveals regular rate and rhythm with normal S1, S2. LUNGS: Auscultation of lungs reveals rhonchorous breath sounds bilaterally. There is no wheezing. ABDOMEN: Soft and nontender. There is no rebound or guarding. EXTREMITIES: Shows no leg edema or calf tenderness. There is no cyanosis or clubbing. SKIN: Shows no rashes. NEUROLOGICAL: Shows no focal abnormalities. LABORATORY DATA: White blood cell count is 28.4, hemoglobin is 9.1, platelet count is 268. The BUN to creatinine ratio is normal. The carbon dioxide is 15, potassium is 3.3, blood sugars 185 to 285. Blood gas is 7.36, 28, 114, and 16. RADIOGRAPHIC DATA: Chest x-ray shows bilateral airspace opacities. IMPRESSION: 1. Staph aureus bacteremia with septic shock, present on admission. 2. Osteomyelitis of the great toe on the right side. 3. Endocarditis. 4. Myocardial infarction. 5. Atrial fibrillation. 6. Metabolic encephalopathy. 7. Acute on chronic renal failure. PLAN: 1. Continue current antibiotics. 2. Wean pressures as tolerated. 3. Arrange for tracheostomy. 4. Continue heparin and amiodarone. 5. Continue to monitor neurological status. Greater than 35 minutes in direct critical care time. Tomas Gupta MD [facility]/MODL /[id number]
[2020-05-29] MEDS: MICAFUNGIN SODIUM 100 ML IV SCH (15:59)
[2020-05-29] MEDS: VANCOMYCIN 1GM/NS 250 ML 250 ML IV SCH (17:39)
--- NOTE | 2020-05-29 18:20 | Progress Note ---
DATE: 05/29/2020 Cardiology Progress Note SUBJECTIVE: The patient was discussed with nursing staff. He remains on Levophed at 20 mcg/minute and vasopressin 0.07 units/hour. He remains intubated and unresponsive. OBJECTIVE: VITAL SIGNS Temperature 98.6 degrees, pulse 123, respiratory rate 28, blood pressure 94/51, and oxygen saturation 100% on mechanical ventilation. GENERAL: Frail, ill-appearing man, no acute distress, intubated and unresponsive. LUNGS: Clear to auscultation bilaterally. No wheezes or crackles. CARDIOVASCULAR: Tachycardic, but regular. No murmur. Normal S1, S2. ABDOMEN: Soft, nontender. EXTREMITIES: No edema. CARDIAC MEDICATIONS: Aspirin 81 mg p.o. daily, Plavix 75 mg p.o. daily, amiodarone drip, heparin drip, vasopressin 0.07 units an hour, and Levophed 20 mcg/minute. LABORATORY DATA: WBC 28.38, hemoglobin 9.1, hematocrit 27.2, and platelets 268. Sodium 142, potassium 3.3 chloride 101, CO2 of 15, BUN 93, and creatinine 7.02. TELEMETRY: Telemetry was personally reviewed and interpreted, appears to be atrial flutter with rapid ventricular response. IMPRESSION: 1. Non-ST elevation myocardial infarction. 2. Acute on chronic systolic heart failure. 3. Staphylococcus aureus bacteremia with suspected vegetation on the mitral valve apparatus by transthoracic echocardiogram. 4. Septic shock secondary to above. 5. Acute hypoxic respiratory failure. 6. Paroxysmal atrial fibrillation/flutter with rapid ventricular response. 7. Coronary disease, status post coronary artery bypass graft. 8. Altered mental status. 9. Status post defibrillator. 10. End-stage renal disease, on hemodialysis. 11. Hypertension. 12. Hyperlipidemia. RECOMMENDATIONS: Continue the patient on amiodarone drip. Continue heparin drip for CVA prophylaxis. Monitor the patient closely on telemetry. His rate is poorly control. However, given his pressor requirements, he cannot receive beta blockers or calcium channel blockers. Continue amiodarone. Given his current illness, he is not a candidate for invasive coronary angiography at this time. Continue medical management. The patient is not a surgical candidate, so NANO would not change his plan of care. There was a mobile echodensity observed on the mitral valve apparatus, suspect vegetation. Given this finding, suspect his ICD is likewise infected. However, he is not a candidate for lead extraction at this time. Antibiotics per Infectious Disease. Wean pressors as tolerated. Further evaluation of the patient's altered mental status per Neurology. Thank you for this consult. We will continue to follow. Keila Pope MD [facility]/MODL /[id number]
--- NOTE | 2020-05-29 19:00 | NUR ---
Report received from Sena Estrada RN.
--- NOTE | 2020-05-29 19:40 | Operative Report ---
DATE OF PROCEDURE: SURGEON: Tomas Gupta MD PROCEDURE: Central line placement under ultrasound guidance. PREOPERATIVE DIAGNOSIS: End-stage renal disease, respiratory failure, and metabolic encephalopathy. POSTOPERATIVE DIAGNOSIS: End-stage renal disease, respiratory failure, and metabolic encephalopathy. CONSENT: Consent was obtained from the family. MEDICATIONS: 1% lidocaine for local anesthesia. DESCRIPTION OF PROCEDURE: The left groin was prepped sterilely with chlorhexidine. A full length sterile drape was used along with a sterile gown, sterile gloves, and mask. An ultrasound machine was used to locate the left femoral vein. 1% lidocaine was used to anesthetize the area over the vein and inferior to the inguinal ligament. The vein was cannulated under direct visualization with a 16-gauge needle. A wire was then passed through the needle. A dilator was used to open the skin. A triple-lumen catheter was passed over the wire by the Seldinger technique. All the ports flushed. COMPLICATIONS: None. ESTIMATED BLOOD LOSS: None. Tomas Gupta MD [facility]/MODL /[id number]
--- NOTE | 2020-05-29 21:15 | NUR ---
Medications passed. Spoke with virtual nurse, she is aware I will be entering vital signs and charting.
[2020-05-29] MEDS: INSULIN GLARGINE 100 UNITS/ML VIAL SQ SCH (21:18)
[2020-05-30] VITALS (26 sets, daily range): BP systolic 95–149; BP diastolic 46–90
[2020-05-30] MEDS: NAFCILLIN SOD 2 GM/NS 100ML 100 ML IV SCH ×6 (00:49→22:04)
[2020-05-30] MEDS: METOPROLOL TARTRATE 25 MG TAB PO SCH ×2 (04:00→16:00)
[2020-05-30] MEDS: FAMOTIDINE 20 MG/2 ML VIAL IV SCH ×2 (04:49→16:44)
--- NOTE | 2020-05-30 04:49 | NUR ---
IM- progress note O/N see below ROS: unreliable v/s; revd PE INTUBATED anicteric ns1s2 reduced bs soft nt nd RIGHT FOOT WITH 2ND AND 3RD DIGITS PARTIAL AMPUTATIONS WELL HEALED; GREAT TOE WITH NECROSIS APPEARING CHANGES. RECTAL TUBE skin dry flat affect NOT AWAKE; labs/meds revd A/P: 69yoM A.fib with RVR- IV amio/BB/AC Intractable N/V- antiemetics NSTEMI- heparin; hold statin with elevated liver fn; ASA+plavix; cardio eval; echo; check lipids. Acute on Chr Systolic CHF- HD for fluid removal Pulmonary edema- as above CAD with hx CABG- cont BB ESRD - HD per nephr Hypertensive heart ds- cont BB Hyperbilirubinemia- f/u COVID testing Transaminitis- as above Thrombocytopenia- monitor on AC AOCD- monitor on AC Secondary hyperparathyroidism Prop: AC Dispo: cct>35mins. f/u COVID testing; HD; antiemetics; AV blockade 9-6-20 HTG; Tn increased to 9; possible cirrhosis; A.fib with RVR- cardioversion pending; Right foot great toe Infection/DFU - IV abx; podiatry consult; cct>35mins 9-7 Tn 49; Hyponatremia; Worsened WBC; cont antimicrobials and vent support; very sick patient; continue care in ICU. 05/21 intubated; septic shock on pressor; Osteomyelitis of right foot great toe- Podiatry consulted; cct>35mins 9-9 growth detected in blood; f/u; con antimicrobials; remains very ill. CT head done few days ago negative. 9-10 hyperbilirubinemia- check NH3 levels; Staph aureus infected sputum- f/u spp. 9-11 Hyperammonemia 300- Hepatic encephalopathy- start lactulose; f/u EEG ordered by neurology. f/u labs 9-12 Anoxic brain injury; Bacteremia- species pending; Acute resp failure; Liver failure; Prognosis poor; left ; d/w son and by telephone; 9-13 Diffuse encephalopathy; no seizure activity on EEG; cont care; will further discuss with family; Persistent Staph aureus Bacteremia; 14 Focal Left Lacunar Infarcts- likelyl Septic Embolic Strokes; continue antimicrobials; f/u echo; Replace Ca. 9-15 Poorly responsive; no response to pain. D/w eldest son Jonathan, who wants a letter for other family members to come from [place]. This will serve as his letter, which describes the grave/poor condition of the patient. 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 d/w family again 9-17 D/w ID about line changes, further d/w - attempts will be made, but pt remains critically ill on pressors that require central lines. As noted by cardio, ICD may also be infected, but not feasible at this time to replace; Repeat blood cultures not turning positive again; pt has been septicemic with MSSA. On nafcillin/merrem/vanco and micafungin. Not interactive; No localization. Palliative care consult to discuss with family; Family at this pt wants everything done. MELVA MENDEZ MD, PHD.
[2020-05-30 05:11] LABS: BASOPHILS # (AUTO) 0.1 (0.0-0.1); BASOPHILS % 0.4 % (0.0-1.0); HEMATOCRIT 26.6 % (38.2-49.6); HEMOGLOBIN 8.6 g/dL (14.0-18.0); LYMPHOCYTES # (AUTO) 0.6 (1.0-3.2); LYMPHOCYTES % 2.7 % (18.0-39.1); MEAN CORPUSCULAR HEMOGLOBIN 31.2 pg (28-32); MEAN CORPUSCULAR HGB CONC 32.3 g/dL (31-35); MEAN CORPUSCULAR VOLUME 96.4 fL (81-99); MONOCYTES # (AUTO) 0.9 (0.2-0.8); MONOCYTES % 4.2 % (4.4-11.3); NEUTROPHILS # (AUTO) 18.8 (2.1-6.9); NEUTROPHILS % 87.7 % (38.7-80.0); PLATELET COUNT 308 x10e3/uL (140-360); RED BLOOD COUNT 2.76 x10e6/uL (4.3-5.7); RED CELL DISTRIBUTION WIDTH 26.5 % (11.7-14.4)
[2020-05-30 05:27] LABS: ALBUMIN 2.8 g/dL (3.5-5.0); ALBUMIN/GLOBULIN RATIO 0.7 (0.8-2.0); ANION GAP 27.3 mmol/L (8-16); CALCIUM 7.2 mg/dL (8.4-10.2); CREATININE, SERUM 6.3 mg/dL (0.72-1.25); POTASSIUM 3.3 mmol/L (3.5-5.1)
--- NOTE | 2020-05-30 05:35 | NUR ---
Dr. Hong present and assessing the pt.
[2020-05-30] MEDS ORDERED: INSULIN GLARGINE 100 UNITS/ML VIAL SQ STA (05:39)
[2020-05-30] MEDS: METOCLOPRAMIDE HCL 10 MG/2ML VIAL IV SCH ×3 (05:42→22:58)
[2020-05-30] MEDS: INSULIN REGULAR, HUMAN 100 UNIT/1 ML 3ML VIAL SQ SCH ×3 (05:46→17:47)
[2020-05-30 07:29] LABS: ABG HCO3 17 mmol/L (22-26); ABG PCO2 29 mmHg (35-45); ABG PH 7.39 (7.35-7.45); ABG PO2 79 mmHg (80-105); ABG TCO2 18
--- NOTE | 2020-05-30 08:19 | NUR ---
SPOKE WITH AMELIA AND LET KNOW THE MESSAGE FROM DR MENDEZ VIA CASE MANAGEMENT COMMUNICATION. WILL FOLLOW UP.
[2020-05-30] MEDS: CLOPIDOGREL BISULFATE 75 MG TAB PO SCH (08:28)
[2020-05-30] MEDS: ASPIRIN 81 MG CHEW TAB PO SCH (08:28)
[2020-05-30] MEDS: LACTULOSE SYRUP 20 GM/30 ML UDC PO SCH (08:28)
[2020-05-30] MEDS: MEROPENEM 500MG/ NS 50ML 50 ML IV SCH ×2 (08:28→22:04)
--- NOTE | 2020-05-30 08:29 | Consultation ---
DATE OF CONSULTATION: 05/30/2020 SUBJECTIVE: The patient is seen at bedside. No change. Intubated, nonresponsive. OBJECTIVE: VITAL SIGNS: Temperature 100.0, pulse rate 117, respiratory rate 29, blood pressure 121/58, O2 saturation 100%. LABORATORY DATA: of 21.44, hemoglobin 8.6. Gangrenous changes to the right great toe stable, discolored toes, foot very cold to touch. Pedal pulses nonpalpable. ASSESSMENT: Gangrene, peripheral arterial disease with ischemic foot. PLAN: We will continue to treat conservatively with diluted wet-to-dry Betadine. Continue IV antibiotics nafcillin, vancomycin. We will continue to follow. Prognosis not good. ОЛЕГ Blake/MODL /[id number]
--- NOTE | 2020-05-30 08:55 | Diagnostic Imaging Report ---
EXAMINATION: CHEST SINGLE (PORTABLE) INDICATION: Respiratory failure COMPARISON: Multiple prior chest radiographs, most recently 05/29/2020 FINDINGS: LINES/TUBES:Support lines and tubes unchanged. LUNGS:The lungs are well-inflated. There is perihilar fullness and indistinctness of the pulmonary vasculature. No focal consolidation. PLEURA:No pleural effusion or pneumothorax. MEDIASTINUM:Cardiomediastinal silhouette is stably enlarged. Atherosclerotic calcifications of the thoracic aorta. BONES/SOFT TISSUES:No acute osseous injury. Jerry wires intact. ABDOMEN:No free air under the diaphragm. IMPRESSION: Cardiomegaly and mild pulmonary interstitial edema. Signed by: Becki Florez MD on 05/30/2020 8:51 AM
--- NOTE | 2020-05-30 09:00 | NUR ---
Upon morning assessment, pt noted to have stool leaking from around rectal tube. Small amount of blood also noted on pad. RN cleaned pt and removed mepelex pad from sacrum area. Wound on sacrum noted to be worsening from previous assessments. Moderate amount of dark discoloration and non-blanching area noted. Pt also noted to have worsening motteling on fingers and feet and vasopressor requirements continuing. RN placed wound care consultation and replaced mepelex on sacrum. RN will continue Q2 turns.
[2020-05-30] MEDS: VASOPRESSIN 60 UNIT in DEXTROSE 5% 50ML 57 ML IV PRN ×2 (10:00→16:46)
--- NOTE | 2020-05-30 10:08 | Progress Note ---
DATE: SUBJECTIVE: The patient remains on SIMV mode of ventilation. His breathing over this rated about 25. He is on Levophed at 18 mcg as well as vasopressin at 0.07. He remains on heparin as well as amiodarone. He is receiving dialysis today. His line was changed yesterday. Micafungin was added to his antimicrobial regimen. PHYSICAL EXAMINATION: VITAL SIGNS: The blood pressure is 136/55 and saturation is 100%. He is currently on SIMV of 10 with a pressure support of 10. His tidal volume is set at 350 and his FiO2 is set at 30%. He is breathing 25 times a minute. HEENT: No facial swelling or erythema. He has an oral endotracheal tube. CARDIAC: Regular rate and rhythm with normal S1, S2. LUNGS: Auscultation of lungs reveals crackles at the bases. There is no wheezing. ABDOMEN: Soft, nontender. There is no rebound or guarding. EXTREMITIES: No leg edema or calf tenderness. There is no cyanosis or clubbing. There is a necrotic appearing toe on the right side. The patient also has some discoloration and early ischemic changes of his fingertips bilaterally. There is a femoral line in place. LABORATORY DATA: BUN to creatinine ratio is 79 to 6.3. The carbon dioxide is 17 and the potassium is 3.3. Other electrolytes are within normal limits and the albumin is 2.8. White blood cell count is 21.4 and hemoglobin is 8.6. The platelet count is 308. RADIOGRAPHIC DATA: Chest x-ray shows cardiomegaly and mild interstitial edema. IMPRESSION: 1. Staphylococcus aureus bacteremia with septic shock, present on admission. 2. Mitral valve endocarditis. 3. Osteomyelitis of the great toe. 4. Fungemia. 5. Myocardial infarction. 6. Atrial fibrillation. 7. Metabolic encephalopathy. 8. Acute on chronic renal failure. PLAN: 1. Continue current antimicrobial regimen. 2. Wean pressors as tolerated. 3. Continue with dialysis. 4. Continue heparin and amiodarone. 5. Continue to monitor neurological status. 6. Arrange for tracheostomy. Greater than 35 minutes in direct critical care time. Tomas Gupta MD [facility]/MODL /[id number]
--- NOTE | 2020-05-30 11:09 | Progress Note ---
DATE: 05/30/2020 Cardiology Progress Note The patient was discussed with nursing staff. He remains unresponsive, on mechanical ventilation. He continues to require Levophed 16 mcg/minute and vasopressin 0.07 units an hour. In addition, he is on amiodarone and heparin drip. OBJECTIVE: VITAL SIGNS: Temperature 101 degrees, pulse 113, respiratory rate 29, blood pressure 114/54, and oxygen saturation 100% on mechanical ventilation. GENERAL: Frail, ill-appearing man, no acute distress, intubated and unresponsive. LUNGS: Clear to auscultation bilaterally. No wheezes or crackles. CARDIOVASCULAR: Tachycardic, irregular. No murmur. Normal S1, S2. ABDOMEN: Soft, nontender. EXTREMITIES: No edema. Dressing present on the left foot. CARDIAC MEDICATIONS: 1. Aspirin 81 mg p.o. daily. 2. Plavix 75 mg p.o. daily. 3. Vasopressin 0.07 units an hour. 4. Levophed 60 mcg/minute. 5. Amiodarone drip. 6. Heparin drip. LABORATORY DATA: WBC 21.44, hemoglobin 8.6, hematocrit 26.6, and platelets 308. Sodium 142, potassium 3.3, chloride 101, CO2 of 17, BUN 79, and creatinine 6.3. TELEMETRY: Telemetry was personally reviewed and interpreted revealing atrial fibrillation with ventricular pacing. IMPRESSION: 1. Non-ST elevation myocardial infarction. 2. Acute on chronic systolic heart failure. 3. Paroxysmal atrial fibrillation/flutter with rapid ventricular response. 4. Staphylococcus aureus bacteremia. Suspected vegetation on the mitral valve apparatus by transthoracic echocardiogram. 5. Septic shock secondary to above. 6. Acute hypoxic respiratory failure. 7. Altered mental status. 8. Coronary artery disease, status post coronary artery bypass graft. 9. Status post atrial fibrillation. 10. End-stage renal disease, on hemodialysis. 11. Hypertension. 12. Hyperlipidemia. RECOMMENDATIONS: Continue patient on amiodarone drip. Continue heparin for CVA prophylaxis. Monitor the patient closely on telemetry. His rate remains poorly controlled. However, given his pressor requirements, he cannot receive beta blockers or calcium channel blockers. Continue amiodarone. Given his current illness, he is not a candidate for invasive coronary angiography at this time. Continue medical management. In addition, he is not a surgical candidate so NANO would not change his plan of care. There was a mobile echodensity observed on the mitral valve apparatus suspect vegetation. Given this finding, suspect his ICD is also infected. However, he is not a candidate for lead extraction at this time. Antibiotics per Infectious Disease. Wean pressors as tolerated. Further evaluation of the patient's altered mental status per Neurology. His prognosis is poor. Thank you for this consult. We will continue to follow. Keila Pope MD [facility]/MODL /[id number] MTDD
[2020-05-30] MEDS: PHENYLEPHRINE 10MG/ML VIAL 40 MG in DEXTROSE 5% 250ML 250 ML IV SCH (11:30)
--- NOTE | 2020-05-30 11:47 | NUR ---
WOUND CARE CONSULT DARK SUSPECTED SACRAL WOUND NOTED BY BED SIDE NURSE PATIENT HAS DIALYSIS IN PROGRESS WOUND CARE TO ASSESS PATIENT WHEN AREA ACCESSIBLE NURSING TO CONTINUE STRICT PUP INTERVENTIONS AND OFFLOAD AREA MAINTAIN FOAM TO PREVENT SHEER FORCE Addendum: 05/30/20 at 1151 by Alejandro Tolentino RN Amended: Links added.
[2020-05-30] MEDS: HEPARIN 25,000 UNIT 800 UNIT in DEXTROSE 5% 250ML 250 ML IV SCH (13:08)
--- NOTE | 2020-05-30 13:20 | Progress Note ---
DATE: 05/30/2020 SUBJECTIVE: White count remains elevated, I intubated on pressors, although blood pressure seems a bit more stable. OBJECTIVE: VITAL SIGNS: Temperature 101, pulse 100, irregular, blood pressure 102/52. CHEST: Clear anteriorly. Diminished breath sounds. EXTREMITIES: Edema is present. SKIN: Gangrenous changes on the tips of his digits. NEURO: Appears sedated. LABORATORY DATA: Hemoglobin 8.6, white count 29922, platelets of 308. Serum CO2 17. Last pH was 7.39. Sodium 142, K 3.3, glucose 441, calcium is 7.2, still low but better. ASSESSMENT: 1. Hyperphosphatemia, hypocalcemia. 2. Septic shock. 3. Foot osteomyelitis. 4. Concern for endocarditis. 5. Mild hypokalemia. 6. Encephalopathy. 7. esrd from dm, htn , with poor tolerance for dialysis PLAN: Hemodialysis again minimal UF on a daily basis to allow for some fluid removal. Otherwise, he is too unstable. For anything more than that, overall prognosis remains poor. At this point in time, I told family, wishes all aggressive measures. We will follow along. MD JD Linder/AVI /[id number] MTDD
--- NOTE | 2020-05-30 16:21 | NUR ---
Nutrition Intervention Note RD Recommendation(s) for Physician: -When hemodynamically stable, recommend advancing TF of Vital AF to goal rate of 55 ml/hr (provides 1584 kcal, 99 g protein, and 1071 mL water) -Water flushes/fluid management per MD Plan of Care: RD following, monitoring for tolerance and adequacy, tube feed recommendation Nutrition reason for involvement: follow up RD Assessment 05/30: Follow up. Chart reviewed. Pt discussed during interdisciplinary rounds. Pt remains intubated and remains on pressor support. Pt is also receiving dialysis. Pt is tolerating TF @ 40 mL/hr. Current recommendations remain appropriate. Will continue to monitor. 05/27: Follow up. Pt remains intubated, off sedation, and on 2 pressors. Pt non-responsive off sedation, high dose pressors per RN, and tolerating TF at 20 ml/hr currently due to pressor dosage. Pt supine currently. Plan for HD today. Pt discussed during MDR, prognosis poor. Current TF rec's remain appropriate. Pt not meeting needs currently. Chart reviewed. Will continue to monitor. 05/23: Follow up. Pt remains intubated and is receiving Glucerna 1.2 @ 20 mL/hr. Recommendations provided. RD to manage TF order per Dr. Gupta. Will continue to monitor. (05/20/20) Pt is a 69 year old male admitted with afib with RVR, CHF, ESRD, and NSTEMI. Pt is receiving dialysis. Pt was intubated yesterday; therefore, unable to obtain nutrition history from pt at this time. It is noted that pt is primarily Danish speaking. Per chart, pt reported unsure weight loss and a decreased appetite prior to admission. Per weight history, pt weighed 155 lbs in May 2018. Therefore, no significant weight loss is evident. Recommend initiating enteral nutrition if pt is to remain intubated and consult RD. Will continue to monitor. Principal Problems/Diagnoses: afib with RVR, CHF, ESRD, and NSTEMI PMH: ESRD, diabetes, HTN GI: LBM 05/30- liquid Skin: suspected DTI R heel and toe, sacrum stage II PU Labs: 05/30: Na 142, K 3.3, BUN 79, Cr 6.30, Glu 441, Ca 7.2, Total bili 6.1 05/27: Na 141, K 3.9, BUN 106, Cr 7.71, Gluc 256, Ca 6.2, POC Gluc 210-245 05/23: Na 132, K 4.2, BUN 73, Cr 5.83, Glu 354, Ca 8.0, Total Bili 3.5, AST 65 (05/20) Na 129, BUN 61, Cr 8.19, Glu 280, Ca 7.9, AST 140, ALT 90 Meds: reglan, heparin, vasopressin, meropenem, vancomycin, amiodarone, metoprolol, norepinephrine, zofran, colace Ht: 65 inc Wt: 143 lbs (05/25) 145 lbs (05/22) 150 lbs (05/19) weight fluctuations likely due to dialysis BMI: 23.8 kg/m2 weight used 143 lbs IBW:136 lbs Malnutrition Evaluation (05/23/20) The patient does not meet criteria for a specified degree of malnutrition at this time. Will re-evaluate at follow-up as appropriate. Energy intake: <50% of estimated energy requirements for 5 days Weight loss: no significant weight loss is evident per weight history, weight fluctuations due to dialysis Fat loss: unable to evaluate Muscle loss: unable to evaluate Supporting Evidence: Fluid accumulation: no edema per chart Functional Status: unable to assess Nutrition Prescription (Diet Order): Vital AF at 55 ml/hr, currently infusing at 40 ml/hr (1152 kcal and 72 gm protein) Estimated Nutritional Needs: 8199-1278 calories/day (20-25 kcal/kg CBW) Weight used: 143 lbs 98-130 g protein/day (1.5-2 g pro/kg CBW) Weight used: 143 lbs Diet Adequacy: Not meeting calorie needs, Not meeting protein needs Tolerance: tolerating TF Diet Education Needs Assessment: Diet education not indicated, patient is intubated Nutrition Care Level: high Nutrition Diagnosis: Inadequate oral intake related to mechanical ventilation as evidenced by pt requiring enteral nutrition. Goal: Patient will meet 75-100% of estimated needs by follow up Progress: progressing Interventions: -Composition, Rate, Route Monitoring/Evaluation: -Total energy intake, Total protein intake, Weight change, Formula/Solution Signed: Kenzie Diaz RD, SOWMYA
[2020-05-30] MEDS: AMIODARONE HCL 900 MG in DEXTROSE 5% 500ML 500 ML IV SCH (16:44)
[2020-05-30] MEDS: MICAFUNGIN SODIUM 100 ML IV SCH (17:45)
[2020-05-30] MEDS ORDERED: VANCOMYCIN 1GM/NS 250 ML 250 ML IV ONE (19:30)
[2020-05-30] MEDS ORDERED: INSULIN GLARGINE 100 UNITS/ML VIAL SQ SCH (21:00)
[2020-05-31] VITALS (27 sets, daily range): BP systolic 90–130; BP diastolic 35–53
[2020-05-31] MEDS: NAFCILLIN SOD 2 GM/NS 100ML 100 ML IV SCH ×6 (01:19→21:00)
[2020-05-31] MEDS: METOPROLOL TARTRATE 25 MG TAB PO SCH ×2 (04:00→16:47)
[2020-05-31 05:01] LABS: BASOPHILS # (AUTO) 0.1 (0.0-0.1); BASOPHILS % 0.4 % (0.0-1.0); EOSINOPHILS % 0.1 % (0.0-6.0); HEMATOCRIT 22.3 % (38.2-49.6); HEMOGLOBIN 7.5 g/dL (14.0-18.0); LYMPHOCYTES # (AUTO) 0.5 (1.0-3.2); LYMPHOCYTES % 3.2 % (18.0-39.1); MEAN CORPUSCULAR HEMOGLOBIN 33.3 pg (28-32); MEAN CORPUSCULAR HGB CONC 33.6 g/dL (31-35); MEAN CORPUSCULAR VOLUME 99.1 fL (81-99); MONOCYTES # (AUTO) 0.8 (0.2-0.8); MONOCYTES % 4.6 % (4.4-11.3); NEUTROPHILS # (AUTO) 15.3 (2.1-6.9); NEUTROPHILS % 89.7 % (38.7-80.0); PLATELET COUNT 261 x10e3/uL (140-360); RED BLOOD COUNT 2.25 x10e6/uL (4.3-5.7); RED CELL DISTRIBUTION WIDTH 27.5 % (11.7-14.4)
[2020-05-31 05:32] LABS: ALBUMIN 2.6 g/dL (3.5-5.0); ALBUMIN/GLOBULIN RATIO 0.7 (0.8-2.0); ANION GAP 22.3 mmol/L (8-16); CALCIUM 7.5 mg/dL (8.4-10.2); CREATININE, SERUM 5.49 mg/dL (0.72-1.25); POTASSIUM 3.3 mmol/L (3.5-5.1)
--- NOTE | 2020-05-31 05:33 | NUR ---
For PTT 81 to 100 sec: Decrease by 100 units/hr and repeat PTT in 6 hours.
[2020-05-31] MEDS: METOCLOPRAMIDE HCL 10 MG/2ML VIAL IV SCH ×3 (05:53→22:00)
[2020-05-31] MEDS: FAMOTIDINE 20 MG/2 ML VIAL IV SCH ×2 (05:53→16:47)
[2020-05-31] MEDS: INSULIN REGULAR, HUMAN 100 UNIT/1 ML 3ML VIAL SQ SCH ×5 (05:54→23:21)
--- NOTE | 2020-05-31 08:02 | NUR ---
Son phoned update given
[2020-05-31] MEDS: CLOPIDOGREL BISULFATE 75 MG TAB PO SCH (08:05)
[2020-05-31] MEDS: MEROPENEM 500MG/ NS 50ML 50 ML IV SCH ×2 (08:05→21:00)
[2020-05-31] MEDS: ASPIRIN 81 MG CHEW TAB PO SCH (08:05)
--- NOTE | 2020-05-31 08:25 | Diagnostic Imaging Report ---
Examination: Single AP view of the chest. COMPARISON: 05/30/2020 INDICATION: Respiratory failure DISCUSSION: Endotracheal tube, enteric tube, and right subclavian approach cardiac device body and leads are stable in position. The lungs remain well-inflated. Interval worsening of patchy nodular opacities projecting over the left upper lung. Otherwise no new consolidation. Trace left pleural effusion. Stable enlargement of the cardiac silhouette with postsurgical changes in the mediastinum and prominence of the interstitium. No acute osseous abnormalities. IMPRESSION: Stable position of support lines and tubes. Unchanged enlargement of the cardiac silhouette with mild interstitial pulmonary edema and trace left pleural effusion. Patchy nodular opacities projecting over the left upper lung are more conspicuous on the current study and may relate to infectious or inflammatory process. Attention on follow-up studies is suggested. Signed by: Dr. Rolando Cristina M.D. on 05/31/2020 8:22 AM
[2020-05-31] MEDS ORDERED: SODIUM CHLORIDE 0.9% 1000ML 2,000 ML ONE (08:33)
--- NOTE | 2020-05-31 09:04 | Progress Note ---
DATE: 05/31/2020 SUBJECTIVE: The patient is seen at bedside, about to get dialyzed. Intubated. OBJECTIVE: VITAL SIGNS: Afebrile, pulse rate 71, respirations 22, blood pressure 102/39, and O2 saturation 100%. EXTREMITIES: Gangrenous changes to the right great toe, stable for now. Skin temperature very cold to touch. Pedal pulses nonpalpable. LABORATORY DATA: Show white blood cell count of 17.05, hemoglobin 7.5 with a platelet count of 261. Blood glucose of 214 with a creatinine of 5.49. ASSESSMENT: Ischemic foot with gangrene, right great toe. PLAN: We will continue local wound care with diluted wet-to-dry Betadine. Continue IV nafcillin and vancomycin. We will continue to follow. ОЛЕГ Blake/AVI /[id number]
--- NOTE | 2020-05-31 09:15 | NUR ---
Dr Gupta aware want to given the femoral line a few more days before he change to RIJ
--- NOTE | 2020-05-31 09:24 | Progress Note ---
DATE: 05/31/2020 SUBJECTIVE: Remains on full support ventilator as well as pressors. Micafungin added. Blood pressure seems somewhat better. OBJECTIVE: VITAL SIGNS: Temperature 98.2, pulse 71, blood pressure 102/39. CHEST: Occasional rhonchi. EXTREMITIES: Minimal swelling in the upper limbs. Gangrenous changes at the tips of the digits. AVF seems patent. Blood culture is now growing yeast. Hemoglobin is 7.5, K 3.3, serum CO2 of 19, creatinine 5.4, BUN 75. ASSESSMENT: End-stage renal disease, anemia, multifactorial, minimal hypokalemia; hypocalcemia, improved. He was hypophosphatemic, but at this point, no definite treatment. Hemodialysis today. We have been doing sequential dialysis as he generally has not been tolerating conventional fluid runs. Today, I will run 1 to 2 L fluid removal, 3 potassium bath, 2.5 calcium in the bath, for 3h. We will follow along. MD JAVI LinderK/MODL /[id number] MTDTomi
--- NOTE | 2020-05-31 09:38 | NUR ---
Dr Gupta at bedside update given regards Levophed at 2mcg and Vasopressin 0.02 see notes and orders
[2020-05-31] MEDS ORDERED: POTASSIUM CHLORIDE 20MEQ/15ML UDC NG ONE (10:15)
[2020-05-31] MEDS ORDERED: EPOETIN ALFA-EPBX 10,000 UNIT/ML VIAL SC ONE (10:15)
--- NOTE | 2020-05-31 10:30 | NUR ---
Dr Mtz here
--- NOTE | 2020-05-31 10:58 | NUR ---
PTT drawn labled and taken to lab
--- NOTE | 2020-05-31 11:25 | Progress Note ---
DATE: 05/31/2020 Cardiology Progress Note SUBJECTIVE: The patient was discussed with nursing staff. He remains unresponsive on mechanical ventilation. Pressure requirements have improved and he is now down to Levophed 2 mcg/minute and vasopressin 0.02 units an hour. He remains on amiodarone and heparin drips. OBJECTIVE: VITAL SIGNS: Temperature 98.3 degrees, pulse 73, respiratory rate 20, blood pressure 102/40, oxygen saturation 100% on mechanical ventilation. GENERAL: Frail, ill-appearing man, no acute distress, intubated and unresponsive. LUNGS: Clear to auscultation bilaterally. No wheezes or crackles. CARDIOVASCULAR: Normal rate, irregular rhythm. No murmur. Normal S1, S2. ABDOMEN: Soft, nontender. EXTREMITIES: No edema, dressing present on the left foot. CARDIAC MEDICATIONS: 1. Aspirin 81 mg p.o. daily. 2. Plavix 75 mg p.o. daily. 3. Vasopressin 0.02 units an hour. 4. Levophed 2 mcg/minute. 5. Heparin drip. 6. Amiodarone drip. LABORATORY DATA: WBC 17.05, hemoglobin 7.5, hematocrit 22.3, platelets 261. Sodium 140, potassium 3.3, chloride 102, CO2 of 19, BUN 75, creatinine 5.49. TELEMETRY: Telemetry was personally reviewed and interpreted, revealing atrial fibrillation. IMPRESSION: 1. [id number] myocardial infarction. 2. Acute on chronic systolic heart failure. 3. Paroxysmal atrial fibrillation/flutter. 4. Staphylococcus aureus bacteremia with suspected vegetation on the mitral valve apparatus by transthoracic echocardiogram. 5. Fungemia. 6. Septic shock secondary to above. 7. Acute hypoxic respiratory failure. 8. Altered mental status. 9. Coronary artery disease status post coronary artery bypass grafting. 10. Status post defibrillator. 11. End-stage renal disease, on hemodialysis. 12. Hypertension. 13. Hyperlipidemia. RECOMMENDATIONS: Continue the patient on amiodarone drip. Continue heparin for CVA prophylaxis, monitor patient closely on telemetry. He cannot be started on beta-blockers or calcium channel blockers due to his pressor requirement. Given his current illness, he is not a candidate for invasive coronary angiography at this time. Continue medical management. The patient is not a surgical candidate, so NANO would not change his plan of care, although mobile echodensity was observed in the mitral valve apparatus. No significant valvar dysfunction was appreciated. Suspect ICD is likewise infected. However, he is not a candidate for lead extraction at this time. Antibiotics per Infectious Disease. Wean pressors as tolerated. Further evaluation of patient's altered mental status per Neurology. Thank you for this consult. We will continue to follow. Keila Pope MD [facility]/MODL /[id number]
[2020-05-31] MEDS: PHENYLEPHRINE 10MG/ML VIAL 40 MG in DEXTROSE 5% 250ML 250 ML IV SCH (11:30)
[2020-05-31] MEDS: VASOPRESSIN 60 UNIT in DEXTROSE 5% 50ML 57 ML IV PRN (11:42)
[2020-05-31] MEDS: AMANTADINE HCL 50 MG/5 ML SOLUTION PO SCH ×2 (11:47→18:05)
--- NOTE | 2020-05-31 12:23 | NUR ---
Pending PTT results machine down specimen sent to [facility] Blevins in the lab in a few hours
--- NOTE | 2020-05-31 14:46 | Progress Note ---
DATE: SUBJECTIVE: The patient completed dialysis this morning. Levophed is down to 2 mcg and vasopressin is down to 0.04. The patient remains on SIMV ventilation. He is still not awake, although he is arousable to noxious stimuli. PHYSICAL EXAMINATION: VITAL SIGNS: Blood pressure is 112/50, saturation is 100%. The pulse is 82. He is currently on SIMV mode of ventilation, but is breathing over the ventilator at 22 times a minute. HEENT: No facial swelling or erythema. LYMPHATIC: No submandibular, cervical, or supraclavicular adenopathy. CARDIAC: Regular rate and rhythm. Normal S1, S2. LUNGS: Auscultation of lungs reveals rhonchorous breath sounds bilaterally. There is no wheezing. ABDOMEN: Soft, nontender. There is no rebound or guarding. EXTREMITIES: No leg edema or calf tenderness. There is no cyanosis or clubbing. SKIN: No rashes. NEUROLOGICAL: No focal abnormalities. LABORATORY DATA: The white blood cell count is 17.05 and hemoglobin is 7.5. The platelet count is 261. The BUN to creatinine ratio is 75 to 5.49. Potassium is 3.3, and the carbon dioxide is 19. Albumin is 2.6. IMPRESSION: 1. Staphylococcus aureus bacteremia with septic shock, present on admission. 2. Mitral valve endocarditis. 3. Acute on chronic renal failure. 4. Fungemia. 5. Myocardial infarction. 6. Atrial fibrillation. 7. Metabolic encephalopathy. PLAN: 1. Continue current antimicrobial regimen. 2. Wean pressors. 3. Continue to monitor neurological status. 4. Continue heparin and amiodarone. 5. Consider tracheostomy if the patient's neurological status does not improve. Tomas Gupta MD [facility]/MODL /[id number]
--- NOTE | 2020-05-31 15:08 | NUR ---
diminished responsiveness 97.8 99 112/50 pupils right one appear surgical or not perfectly round- 2mm and non reactive left pupils 1.5 mm, minimally reactive reactive to light dolls eyes show movement minimal response to corneal stim no nuchal rigidty tachycardic cta- rhonchus abd soft, reflexes diminished patient blinks to corneal stimulation shuts eyes to nox stim does not follow commands or focus on examiner with eyes a/p severe diffuse encephalopathy - toxic/infectious etiology initial eeg -2-3 hz low amplitude delta waves - slow and minimally responsive repeat eeg - 3-5hz low amplitude delta theta waves- slow and minimally responsive repeat CT will be ordered - tomorrow ,evaluate for ischemic injuries repeat CT today.no substantial neuro-structural changes exam concerning for supratentorial and infratentorial dysfunction exam declined since last visit, mild decrement in neurophysiological function. discussed w/ Dr Tu Hong will initiate amantadine as neurotropic, low dose to monitor responsivity and tolerance repeat eeg 2 days after amantadine trail clinically will continue to monitor. may initiate neurotropics once patient is hypodermically stable
--- NOTE | 2020-05-31 15:22 | NUR ---
WOUND CARE NURSE NURSING CONSULTED WOUND CARE RE SACRAL ULCER. UPON ASSESSMENT, A 14X9X0.1CM UNSTAGEABLE PRESSURE ULCER TO SACRUM/BILATERAL BUTTOCKS IS NOTED. 100% ESCHAR. THE TIP OF BILATERAL FEET/TOES AND AND FINGER TIPS ARE NECROTIC WELL LEFT EAR. PT REMAINS ON VENTILATOR AND VASOPRESSORS. LABS: WBC: 17.05 ALB:2.6 PO GLUCOSE: 222 HGB A1C:6.5 NURSING TO CONTINUE WITH BETADINE DILUTED WET TO DRY TO RIGHT FOOT TOES. BETADINE PAINT DAILY TO SACRUM/BL BUTTOCKS, LEFT FOOT TOES AND LEFT EAR. COVER SACRUM/BUTTOCKS WITH ALLEVYN FOAM CONTINUE WITH LOW AIR LOSS MATTRESS CONTINUE WITH BILATERAL HEEL PROTECTORS AND PILLOW SUSPENSIONS. RECONSULT WOUND CARE PRN. Addendum: 05/31/20 at 1530 by Naa Collins RN Amended: Links added.
[2020-05-31] MEDS: MICAFUNGIN SODIUM 100 ML IV SCH (16:47)
[2020-05-31] MEDS: HEPARIN 25,000 UNIT 800 UNIT in DEXTROSE 5% 250ML 250 ML IV SCH (18:04)
[2020-05-31] MEDS: AMIODARONE HCL 900 MG in DEXTROSE 5% 500ML 500 ML IV SCH (18:07)
[2020-05-31] MEDS: VANCOMYCIN 1GM/NS 250 ML 250 ML IV SCH (18:24)
--- NOTE | 2020-05-31 19:24 | NUR ---
Bedside report just given to oncoming nurse Hebert
[2020-05-31 19:50] LABS: ABG HCO3 19 mmol/L (22-26); ABG PCO2 31 mmHg (35-45); ABG PO2 100 mmHg (80-105); ABG TCO2 20
[2020-05-31] MEDS: INSULIN GLARGINE 100 UNITS/ML VIAL SQ SCH (21:00)
[2020-06-01] VITALS (31 sets, daily range): BP systolic 83–133; BP diastolic 35–73
[2020-06-01] MEDS: NAFCILLIN SOD 2 GM/NS 100ML 100 ML IV SCH ×6 (01:00→21:00)
[2020-06-01] MEDS: METOPROLOL TARTRATE 25 MG TAB PO SCH ×2 (04:00→15:29)
[2020-06-01] MEDS: FAMOTIDINE 20 MG/2 ML VIAL IV SCH ×2 (04:00→15:29)
[2020-06-01 05:10] LABS: ANION GAP 23.9 mmol/L (8-16); CALCIUM 8.6 mg/dL (8.4-10.2); CREATININE, SERUM 5.07 mg/dL (0.72-1.25); POTASSIUM 3.9 mmol/L (3.5-5.1)
[2020-06-01] MEDS: METOCLOPRAMIDE HCL 10 MG/2ML VIAL IV SCH ×3 (05:24→21:46)
[2020-06-01 05:30] LABS: BASOPHILS # (AUTO) 0.1 (0.0-0.1); BASOPHILS % 0.4 % (0.0-1.0); EOSINOPHILS # (AUTO) 0.1 (0.0-0.4); EOSINOPHILS % 0.3 % (0.0-6.0); HEMATOCRIT 24.2 % (38.2-49.6); HEMOGLOBIN 7.9 g/dL (14.0-18.0); LYMPHOCYTES # (AUTO) 0.7 (1.0-3.2); LYMPHOCYTES % 3.6 % (18.0-39.1); MEAN CORPUSCULAR HEMOGLOBIN 31.9 pg (28-32); MEAN CORPUSCULAR HGB CONC 32.6 g/dL (31-35); MEAN CORPUSCULAR VOLUME 97.6 fL (81-99); NEUTROPHILS # (AUTO) 17.2 (2.1-6.9); NEUTROPHILS % 88.4 % (38.7-80.0); PLATELET COUNT 332 x10e3/uL (140-360); RED BLOOD COUNT 2.48 x10e6/uL (4.3-5.7); RED CELL DISTRIBUTION WIDTH 27.6 % (11.7-14.4)
[2020-06-01] MEDS: INSULIN REGULAR, HUMAN 100 UNIT/1 ML 3ML VIAL SQ SCH ×3 (06:00→17:03)
[2020-06-01] MEDS ORDERED: INSULIN GLARGINE 100 UNITS/ML VIAL SQ SCH (06:00)
--- NOTE | 2020-06-01 06:13 | NUR ---
IM- progress note O/N see below ROS: unreliable v/s; revd PE INTUBATED anicteric ns1s2 reduced bs soft nt nd RIGHT FOOT WITH 2ND AND 3RD DIGITS PARTIAL AMPUTATIONS WELL HEALED; GREAT TOE WITH NECROSIS APPEARING CHANGES. RECTAL TUBE skin dry flat affect NOT AWAKE; labs/meds revd A/P: 69yoM A.fib with RVR- IV amio/BB/AC Intractable N/V- antiemetics NSTEMI- heparin; hold statin with elevated liver fn; ASA+plavix; cardio eval; echo; check lipids. Acute on Chr Systolic CHF- HD for fluid removal Pulmonary edema- as above CAD with hx CABG- cont BB ESRD - HD per nephr Hypertensive heart ds- cont BB Hyperbilirubinemia- f/u COVID testing Transaminitis- as above Thrombocytopenia- monitor on AC AOCD- monitor on AC Secondary hyperparathyroidism Prop: AC Dispo: cct>35mins. f/u COVID testing; HD; antiemetics; AV blockade 9-6-20 HTG; Tn increased to 9; possible cirrhosis; A.fib with RVR- cardioversion pending; Right foot great toe Infection/DFU - IV abx; podiatry consult; cct>35mins 9-7 Tn 49; Hyponatremia; Worsened WBC; cont antimicrobials and vent support; very sick patient; continue care in ICU. 05/21 intubated; septic shock on pressor; Osteomyelitis of right foot great toe- Podiatry consulted; cct>35mins 9-9 growth detected in blood; f/u; con antimicrobials; remains very ill. CT head done few days ago negative. 9-10 hyperbilirubinemia- check NH3 levels; Staph aureus infected sputum- f/u spp. 9-11 Hyperammonemia 300- Hepatic encephalopathy- start lactulose; f/u EEG ordered by neurology. f/u labs 9-12 Anoxic brain injury; Bacteremia- species pending; Acute resp failure; Liver failure; Prognosis poor; left ; d/w son and by telephone; 9-13 Diffuse encephalopathy; no seizure activity on EEG; cont care; will further discuss with family; Persistent Staph aureus Bacteremia; 14 Focal Left Lacunar Infarcts- likelyl Septic Embolic Strokes; continue antimicrobials; f/u echo; Replace Ca. 9-15 Poorly responsive; no response to pain. D/w eldest son Jonathan, who wants a letter for other family members to come from [place]. This will serve as his letter, which describes the grave/poor condition of the patient. 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 d/w family again 9-17 D/w ID about line changes, further d/w - attempts will be made, but pt remains critically ill on pressors that require central lines. As noted by cardio, ICD may also be infected, but not feasible at this time to replace; Repeat blood cultures not turning positive again; pt has been septicemic with MSSA. On nafcillin/merrem/vanco and micafungin. Not interactive; No localization. Palliative care consult to discuss with family; Family at this pt wants everything done. 9-18 Neurotropic tx started by ; MultiOrgan failure; Fungemia; Poor prognosis. 9-19 contiue supportive care per family. On vasopressin/amio gtt. MELVA MENDEZ MD, PHD.
[2020-06-01] MEDS: MEROPENEM 500MG/ NS 50ML 50 ML IV SCH ×2 (08:09→21:00)
[2020-06-01] MEDS: AMANTADINE HCL 50 MG/5 ML SOLUTION PO SCH ×2 (08:18→16:09)
[2020-06-01] MEDS: ASPIRIN 81 MG CHEW TAB PO SCH (08:18)
[2020-06-01] MEDS: CLOPIDOGREL BISULFATE 75 MG TAB PO SCH (08:18)
[2020-06-01 09:10] LABS: ABG HCO3 18 mmol/L (22-26); ABG PCO2 32 mmHg (35-45); ABG PH 7.36 (7.35-7.45); ABG PO2 140 mmHg (80-105); ABG TCO2 19
[2020-06-01] MEDS: PHENYLEPHRINE 10MG/ML VIAL 40 MG in DEXTROSE 5% 250ML 250 ML IV SCH (09:39)
--- NOTE | 2020-06-01 10:34 | Progress Note ---
DATE: Cardiology Progress Note SUBJECTIVE: The patient is unable to report. He is currently intubated. OBJECTIVE: VITAL SIGNS: Temperature 98.8, pulse 82, respiratory rate 23, blood pressure 121/48, and oxygen saturation 100% on mechanical ventilator. CARDIOVASCULAR MEDICATIONS: Aspirin 81 mg p.o. daily, Plavix 75 p.o. daily, norepinephrine IV titrate, amiodarone IV titrate, heparin IV titrate, and vasopressin IV titrate. LABORATORY DATA: WBC 19.41, hemoglobin 7.9, hematocrit 24.2, and platelets 332. Sodium 140, potassium 3.9, BUN 82, creatinine 5.07, and glucose 215. TELEMETRY: Atrially and ventricularly paced rhythm. PHYSICAL EXAMINATION: GENERAL: Frail, ill appearing man, intubated and unresponsive. LUNGS: Diminished breath sounds, anterior lower lobes, otherwise clear to auscultation. CARDIOVASCULAR: Irregular rate and rhythm. No murmurs, no gallops. ABDOMEN: Round, nontender. LOWER EXTREMITIES: Pitting edema, upper and lower extremity both with cyanotic digits and also gangrenous digits. IMPRESSION: 1. Non-ST elevation myocardial infarction. 2. Acute on chronic systolic heart failure, status post defibrillator. 3. Paroxysmal atrial fibrillation, atrial flutter. 4. Staphylococcus aureus bacteremia with suspected vegetation of the mitral valve apparatus by transthoracic echocardiogram. 5. Fungemia. 6. Septic shock secondary to the above. 7. Acute hypoxic respiratory failure. 8. Altered mental status. 9. Coronary artery disease, status post coronary artery bypass grafting. 10. End-stage renal disease, currently undergoing hemodialysis. 11. Hyperlipidemia. RECOMMENDATIONS: Continue with the above-listed cardiac medications. Continue on amiodarone drip and also heparin for CVA prophylaxis. Continue to monitor this patient on telemetry. Unable to initiate beta-ashley or calcium channel ashley given his vasopressors requirement. Given his current illness, he is not a candidate for invasive coronary angiogram at this time. We will continue medical management of the above. The patient is not a surgical candidate post NANO would not change his plan of care, although mobile echodensity was observed in the mitral valve apparatus. No significant valvular dysfunction was noted. Suspect ICD. He is likely infected. However, he is not a candidate for lead extraction at this point. Continue antimicrobial therapy per Infectious Disease. Wean off vasopressors as tolerated. We will continue to follow this patient. Dictated by Ead Hercules, FLY MAKER MD [facility]/AVI /[id number]
[2020-06-01 11:29] LABS: BAND NEUTROPHILS % (MANUAL) 4 %; MONOCYTES % (MANUAL) 5 % (3.4-9.0)
[2020-06-01 11:30] LABS: EOSINOPHILS % (MANUAL) 1 % (0-7); LYMPHOCYTES % (MANUAL) 5 % (19-48); NEUTROPHILS % (MANUAL) 84 % (40-74); PLATELET ESTIMATE ADEQUATE
[2020-06-01 11:31] LABS: PLATELET MORPHOLOGY COMMENT FEW LARGE
[2020-06-01 11:32] LABS: RBC MORPHOLOGY COMMENT ABNORMAL; TARGET CELLS FEW
--- NOTE | 2020-06-01 12:05 | Progress Note ---
DATE: SUBJECTIVE: The patient is still on Levophed at 10 mcg as well as vasopressin at 0.02. He is receiving dialysis today. He is arousable, but is still not following commands. The patient remains on SIMV mode of ventilation. PHYSICAL EXAMINATION: VITAL SIGNS: Blood pressure is 121/48, saturation is 100%. The respiratory rate is 26. The pulse is 82. HEENT: No facial swelling or erythema. LYMPHATIC: No submandibular, cervical, or supraclavicular adenopathy. CARDIAC: Regular rate and rhythm with normal S1, S2. LUNGS: Auscultation of lungs shows clear breath sounds bilaterally. There is no wheezing. ABDOMEN: Soft, nontender. There is no rebound or guarding. EXTREMITIES: No leg edema or calf tenderness. There is no cyanosis or clubbing. SKIN: No rashes. LABORATORY DATA: White blood cell count is 19.4 and hemoglobin is 7.9. The platelet count is 332. The BUN to creatinine ratio is 82 to 5.07. The carbon dioxide is 18. RADIOGRAPHIC DATA: Chest x-ray shows patchy nodular infiltrates in both lung khan. IMPRESSION: 1. Staphylococcus aureus bacteremia with septic shock, present on admission. 2. Mitral valve endocarditis. 3. Dry gangrene of the great toe on the right side with osteomyelitis. 4. Fungemia. 5. Acute on chronic renal failure. 6. Myocardial infarction. 7. Atrial fibrillation. 8. Metabolic encephalopathy. PLAN: 1. Continue current antibiotics. 2. Wean pressors. 3. Continue ventilator settings. 4. Continue heparin and amiodarone. 5. Prognosis remains poor. 6. Possible tracheostomy. Greater than 35 minutes in direct critical care time. Tomas Gupta MD [facility]/MODL /[id number]
[2020-06-01] MEDS: HEPARIN 25,000 UNIT 800 UNIT in DEXTROSE 5% 250ML 250 ML IV SCH (16:00)
[2020-06-01] MEDS: MICAFUNGIN SODIUM 100 ML IV SCH (16:09)
--- NOTE | 2020-06-01 18:26 | Consultation ---
DATE OF CONSULTATION: 06/01/2020 SUBJECTIVE: The patient at bedside. No change. Accompanied by nurse. Unresponsive, intubated. OBJECTIVE: VITAL SIGNS: Afebrile, pulse rate 91, respirations 23 with a blood pressure 103/48, O2 saturation 100%. EXTREMITIES: Gangrenous changes to the right foot, getting worse, now it is causing the metatarsophalangeal joint. Skin temperature is very cool to touch. Pedal pulses are nonpalpable. LABORATORY DATA: Labs show white blood cell count dropping to 19.4 from a peak of 28.3. Blood glucose of 215. ASSESSMENT: Gangrene, dry, cellulitis with ischemic foot. PLAN: We will continue diluted wet-to-dry Betadine. Continue offloading. Continue IV antibiotics. We will continue to monitor. Prognosis not good. ОЛЕГ Blake/AVI /[id number]
[2020-06-01] MEDS ORDERED: EPOETIN ALFA-EPBX 10,000 UNIT/ML VIAL IV SCH (20:15)
[2020-06-01] MEDS: INSULIN GLARGINE 100 UNITS/ML VIAL SQ SCH (21:00)
[2020-06-02] VITALS (25 sets, daily range): BP systolic 75–161; BP diastolic 37–86
--- NOTE | 2020-06-02 | NUR ---
Residuals greater than 400mls, feeds withheld
[2020-06-02] MEDS: NAFCILLIN SOD 2 GM/NS 100ML 100 ML IV SCH ×6 (01:21→21:00)
[2020-06-02] MEDS: AMIODARONE HCL 900 MG in DEXTROSE 5% 500ML 500 ML IV SCH (01:21)
[2020-06-02] MEDS: METOPROLOL TARTRATE 25 MG TAB PO SCH ×2 (04:00→16:00)
[2020-06-02] MEDS: FAMOTIDINE 20 MG/2 ML VIAL IV SCH ×2 (04:00→18:11)
[2020-06-02] MEDS: ACETAMINOPHEN 325 MG TAB PO PRN (04:00)
[2020-06-02 05:29] LABS: BASOPHILS # (AUTO) 0.1 (0.0-0.1); BASOPHILS % 0.6 % (0.0-1.0); HEMATOCRIT 24.2 % (38.2-49.6); LYMPHOCYTES # (AUTO) 0.9 (1.0-3.2); LYMPHOCYTES % 4.2 % (18.0-39.1); MEAN CORPUSCULAR HEMOGLOBIN 34.5 pg (28-32); MEAN CORPUSCULAR HGB CONC 33.1 g/dL (31-35); MEAN CORPUSCULAR VOLUME 104.3 fL (81-99); MONOCYTES % 4.6 % (4.4-11.3); NEUTROPHILS % 86.9 % (38.7-80.0); PLATELET COUNT 324 x10e3/uL (140-360); RED BLOOD COUNT 2.32 x10e6/uL (4.3-5.7); RED CELL DISTRIBUTION WIDTH 29.2 % (11.7-14.4)
[2020-06-02] MEDS: METOCLOPRAMIDE HCL 10 MG/2ML VIAL IV SCH ×3 (06:00→22:00)
[2020-06-02] MEDS: INSULIN REGULAR, HUMAN 100 UNIT/1 ML 3ML VIAL SQ SCH ×4 (06:00→18:14)
--- NOTE | 2020-06-02 06:22 | NUR ---
IM- progress note O/N see below ROS: unreliable v/s; revd PE INTUBATED anicteric ns1s2 reduced bs soft nt nd RIGHT FOOT WITH 2ND AND 3RD DIGITS PARTIAL AMPUTATIONS WELL HEALED; GREAT TOE WITH NECROSIS APPEARING CHANGES. RECTAL TUBE skin dry flat affect NOT AWAKE; labs/meds revd A/P: 69yoM A.fib with RVR- IV amio/BB/AC Intractable N/V- antiemetics NSTEMI- heparin; hold statin with elevated liver fn; ASA+plavix; cardio eval; echo; check lipids. Acute on Chr Systolic CHF- HD for fluid removal Pulmonary edema- as above CAD with hx CABG- cont BB ESRD - HD per nephr Hypertensive heart ds- cont BB Hyperbilirubinemia- f/u COVID testing Transaminitis- as above Thrombocytopenia- monitor on AC AOCD- monitor on AC Secondary hyperparathyroidism Prop: AC Dispo: cct>35mins. f/u COVID testing; HD; antiemetics; AV blockade 9-6-20 HTG; Tn increased to 9; possible cirrhosis; A.fib with RVR- cardioversion pending; Right foot great toe Infection/DFU - IV abx; podiatry consult; cct>35mins 9-7 Tn 49; Hyponatremia; Worsened WBC; cont antimicrobials and vent support; very sick patient; continue care in ICU. 05/21 intubated; septic shock on pressor; Osteomyelitis of right foot great toe- Podiatry consulted; cct>35mins 9-9 growth detected in blood; f/u; con antimicrobials; remains very ill. CT head done few days ago negative. 9-10 hyperbilirubinemia- check NH3 levels; Staph aureus infected sputum- f/u spp. 9-11 Hyperammonemia 300- Hepatic encephalopathy- start lactulose; f/u EEG ordered by neurology. f/u labs 9-12 Anoxic brain injury; Bacteremia- species pending; Acute resp failure; Liver failure; Prognosis poor; left ; d/w son and by telephone; 9-13 Diffuse encephalopathy; no seizure activity on EEG; cont care; will further discuss with family; Persistent Staph aureus Bacteremia; 14 Focal Left Lacunar Infarcts- likelyl Septic Embolic Strokes; continue antimicrobials; f/u echo; Replace Ca. 9-15 Poorly responsive; no response to pain. D/w eldest son Jonathan, who wants a letter for other family members to come from [place]. This will serve as his letter, which describes the grave/poor condition of the patient. 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 d/w family again 917 D/w ID about line changes, further d/w - attempts will be made, but pt remains critically ill on pressors that require central lines. As noted by cardio, ICD may also be infected, but not feasible at this time to replace; Repeat blood cultures not turning positive again; pt has been septicemic with MSSA. On nafcillin/merrem/vanco and micafungin. Not interactive; No localization. Palliative care consult to discuss with family; Family at this pt wants everything done. 18 Neurotropic tx started by ; MultiOrgan failure; Fungemia; Poor prognosis. 06-01 contiue supportive care per family. On vasopressin/amio gtt. 06-02 Titrate insulin up; continued talks with family; cont care; Called family- Spoke to - and son Abiodun- agrees. on levphed./vaso. MELVA MENDEZ MD, PHD.
[2020-06-02] MEDS: INSULIN GLARGINE 100 UNITS/ML VIAL SQ SCH (06:28)
--- NOTE | 2020-06-02 07:00 | NUR ---
PTT 94, reduced Heparin as per protocol
[2020-06-02] MEDS: HEPARIN 25,000 UNIT 800 UNIT in DEXTROSE 5% 250ML 250 ML IV SCH (07:28)
[2020-06-02] MEDS: VASOPRESSIN 60 UNIT in DEXTROSE 5% 50ML 57 ML IV PRN (07:29)
[2020-06-02] MEDS: MEROPENEM 500MG/ NS 50ML 50 ML IV SCH ×2 (08:27→21:00)
[2020-06-02] MEDS: CLOPIDOGREL BISULFATE 75 MG TAB PO SCH (08:27)
[2020-06-02] MEDS: ASPIRIN 81 MG CHEW TAB PO SCH (08:27)
[2020-06-02] MEDS: AMANTADINE HCL 50 MG/5 ML SOLUTION PO SCH ×2 (08:27→18:11)
[2020-06-02 08:56] LABS: ANION GAP 31.8 mmol/L (8-16); CALCIUM 8.2 mg/dL (8.4-10.2); CREATININE, SERUM 5.57 mg/dL (0.72-1.25); POTASSIUM 4.8 mmol/L (3.5-5.1)
--- NOTE | 2020-06-02 10:33 | Progress Note ---
DATE: SUBJECTIVE: The patient is now on Levophed at 11 mcg. He is on vasopressin at 0.02. He received dialysis yesterday. He is still not waking up well. He remains on SIMV mode of ventilation. PHYSICAL EXAMINATION: VITAL SIGNS: The patient is afebrile. Blood pressure is 97/40 on the above pressors, the pulse is 71, respiratory rate is 30. HEENT: Shows no facial swelling or erythema. LYMPHATIC: Shows no submandibular, cervical, supraclavicular adenopathy. CARDIAC: Reveals regular rate and rhythm with normal S1, S2. LUNGS: Auscultation of lungs reveals rhonchorous breath sounds bilaterally. There is no wheezing. ABDOMEN: Soft and nontender. There is no rebound or guarding. EXTREMITIES: Necrotic great toe on the right foot. There are also some ischemic changes on the tips of the fingers. LABORATORY DATA: White blood cell count is 21.9 and hemoglobin is 8, and the platelet count is 324. The BUN to creatinine ratio is 110 to 5.6. The carbon dioxide is 12. Blood sugar is 370-505. IMPRESSION: 1. Staphylococcus aureus bacteremia secondary to endocarditis with septic shock present on admission. 2. Mitral valve endocarditis. 3. Dry gangrene of the great toe on the right side. 4. Osteomyelitis of the right toe. 5. Fungemia. 6. Acute on chronic renal failure. 7. Myocardial infarction. 8. Atrial fibrillation. 9. Metabolic encephalopathy. PLAN: 1. Continue current antibiotics. 2. The patient to go for CT scan of the head today. 3. Continue to wean pressors as tolerated. 4. Continue heparin and amiodarone drip. 5. Continue current ventilator settings. 6. The patient to go for tracheostomy. 7. Case discussed with Dr. Hong and son today. 8. Prognosis is poor. Greater than 35 minutes in direct critical care time apart from any procedures performed. Tomas Gupta MD [facility]/MODL /[id number]
--- NOTE | 2020-06-02 11:07 | Diagnostic Imaging Report ---
EXAMINATION: CHEST SINGLE (PORTABLE) INDICATION: s/p line placement COMPARISON: Multiple prior chest x-ray examinations most recent dated 05/31/2020. FINDINGS: AP view TUBES and LINES: There is a new right IJ central venous catheter with distal tip in SVC. Endotracheal tube, enteric tube, and right subclavian approach cardiac device body and leads are stable in position. LUNGS/PLEURA: There are bilateral interstitial opacities likely representing pulmonary edema.. There is no pleural effusion or pneumothorax. HEART AND MEDIASTINUM: Cardiac size is moderately enlarged. BONES AND SOFT TISSUES: No acute osseous lesion. Soft tissues are unremarkable. UPPER ABDOMEN: No free air under the diaphragm. IMPRESSION: Unchanged cardiomegaly and pulmonary edema. Superimposed pneumonia could be considered in appropriate clinical setting. Signed by: Wilfrid Womack MD on 06/02/2020 11:03 AM
[2020-06-02] MEDS: PHENYLEPHRINE 10MG/ML VIAL 40 MG in DEXTROSE 5% 250ML 250 ML IV SCH (11:30)
--- NOTE | 2020-06-02 12:39 | Progress Note ---
DATE: Cardiology Progress Note SUBJECTIVE: The patient is unable to report, intubated and unresponsive. OBJECTIVE: VITAL SIGNS: Temperature 98.3, pulse 86, respiratory rate 26, blood pressure 92/44, and oxygen saturation 100% on mechanical ventilation. GENERAL: Resting in the bed, frail appearing man, intubated and not responsive. LUNGS: Diminished breath sounds throughout. No wheezing. No rhonchi or crackles. CARDIOVASCULAR: Regular rate and rhythm. No murmurs. No gallops. ABDOMEN: Soft, nontender. EXTREMITIES: Lower extremity pitting edema. Upper and lower digits cyanotic with gangrenous changes. CARDIOVASCULAR MEDICATIONS: 1. Aspirin 81 mg p.o. daily. 2. Plavix 75 p.o. daily. 3. Vasopressin IV titrate. 4. Heparin IV titrate. 5. Metoprolol 25 mg p.o. b.i.d. 6. Amiodarone IV titrate. LABORATORY DATA: WBCs 21.90, hemoglobin 8.0, hematocrit 24.2, and platelets 324. Sodium 138, potassium 4.8, BUN 110, creatinine 5.57, and calcium 8.2. TELEMETRY: Atrially and ventricularly paced rhythm. I have personally reviewed telemetry from overnight. IMPRESSION: 1. Noj-NA-oidutgfxn myocardial infarction. 2. Asupx-hp-xhlacgi systolic heart failure, status post defibrillator. 3. Paroxysmal atrial fibrillation/atrial flutter. 4. Staphylococcus aureus bacteremia with suspected vegetation of the mitral valve. 5. Fungemia. 6. Septic shock secondary to the above. 7. Acute hypoxic respiratory failure. 8. Altered mental status. 9. Coronary artery disease, status post coronary artery bypass grafting. 10. End-stage renal disease, on hemodialysis. 11. Hyperlipidemia. RECOMMENDATIONS: Continue with the above-listed cardiac medications. Continue to monitor this patient very closely. Continue vasopressor support. Hold beta-ashley at this time given requirement for more vasopressor after dialysis. Given his current illness, he is not a candidate for invasive coronary angiogram at this time. We will medically manage above condition. The patient is not a surgical candidate for NANO, and at this time I will not change his current plan of care. We suspect ICD is likely infected; however, this patient is also not a candidate for extraction of the leads at this time. Continue antimicrobial therapy per Infectious Disease. We will continue to follow this patient very closely per prognosis. Dictated by Eda Hercules, CLINICAL QUALITY RN MD [facility]/AVI /[id number]
[2020-06-02] MEDS ORDERED: HEPARIN SOD (PORCINE) 1000 UNIT/ML SDV ONE (12:55)
[2020-06-02] MEDS ORDERED: HEPARIN SOD (PORCINE) 1000 UNIT/ML SDV IV PRN ×2 (13:15→15:00)
--- NOTE | 2020-06-02 13:49 | NUR ---
patient less responsive than previously. 92 98.4 144/50 small pupils minimially reative on left. minimal response to corneal stim no nuchal rigidty rrr cta- rhonchus abd soft, reflexes diminished patient blinks to corneal stimulation shuts eyes to nox stim does not follow commands or focus on examiner with eyes a/p severe diffuse encephalopathy - toxic/infectious etiology initial eeg -2-3 hz low amplitude delta waves - slow and minimally responsive repeat eeg - 3-5hz low amplitude delta theta waves- slow and minimally responsive ct shows left lacuner infarcts but no gross structural abnormalities. exam declined since last visit, mild decrement in neurophysiological function. discussed w/ Dr Tu Hong will initiate amantadine as neurotropic, low dose to monitor responsivity and tolerance patient eeg planned for tomorrow eval neuropyhsiological function will continue amantadine at this time
--- NOTE | 2020-06-02 13:57 | Diagnostic Imaging Report ---
EXAMINATION: CHEST SINGLE (PORTABLE) INDICATION: S/P TRYALISIS CATHETER COMPARISON: Multiple prior chest x-ray examinations most recent performed earlier same day. FINDINGS: AP view TUBES and LINES: There is a new right IJ dialysis catheter with distal tip in SVC. Endotracheal tube, enteric tube, and right subclavian approach cardiac device body and leads are stable in position. LUNGS/PLEURA: There are bilateral interstitial opacities likely representing pulmonary edema.. There is no pleural effusion or pneumothorax. HEART AND MEDIASTINUM: Cardiac size is moderately enlarged. BONES AND SOFT TISSUES: No acute osseous lesion. Soft tissues are unremarkable. UPPER ABDOMEN: No free air under the diaphragm. IMPRESSION: A new right IJ dialysis catheter with distal tip in SVC. Otherwise unchanged. Signed by: Wilfrid Womack MD on 06/02/2020 1:53 PM
--- NOTE | 2020-06-02 16:10 | Operative Report ---
DATE OF PROCEDURE: SURGEON: Tomas Gupta MD PROCEDURE: Central line placement under ultrasound guidance. PREOPERATIVE DIAGNOSIS: Acute on chronic renal failure. POSTOPERATIVE DIAGNOSIS: Acute on chronic renal failure. CONSENT: Consent was obtained from the son. ANESTHESIA: 1% lidocaine was used for local anesthesia. DESCRIPTION OF PROCEDURE: The patient was placed in supine position. The right neck was prepped sterilely with chlorhexidine. A full length sterile drape was used as well as a mask. Sterile gloves and sterile gown. 1% lidocaine was used to anesthetize the area between the heads of the sternocleidomastoid. The right IJ line was visualized with an ultrasound. The IJ was cannulated under direct visualization with a 16-gauge needle. The wire was then passed through the needle. A dilator was used to open the skin. A triple-lumen catheter was then placed over the wire by the Seldinger technique. All the ports flushed easily. COMPLICATIONS: None. ESTIMATED BLOOD LOSS: None. Tomas Gupta MD [facility]/MODL /[id number]
[2020-06-02] MEDS: MICAFUNGIN SODIUM 100 ML IV SCH (18:11)
[2020-06-02] MEDS ORDERED: INSULIN GLARGINE 100 UNITS/ML VIAL SQ SCH (21:00)
--- NOTE | 2020-06-02 21:05 | Consultation ---
DATE OF CONSULTATION: 06/02/2020 SUBJECTIVE: The patient is seen at bedside. No distress. Remain intubated, no change, nonresponsive. EXTREMITIES: Has gangrenous changes now to the forefoot aspect of the left lower extremities to the plantar aspect of digits 2 through 5 with cyanosis noted. Skin temperature is cold to touch. Pedal pulses diminished. Gangrene to the right great toe, stable for now with cellulitis up to the mid foot. OBJECTIVE: VITAL SIGNS: Afebrile, pulse rate 71, respirations 13, blood pressure 92/47, O2 saturation 100%. LABORATORY DATA: Show white blood cell count gone up to 21.90. ASSESSMENT: Ischemic feet both lower extremities with gangrenous changes. PLAN: Continue diluted wet-to-dry Betadine. Continue offloading with heel pad. We will continue following up. ОЛЕГ Blake/AVI /[id number]
[2020-06-03] VITALS (21 sets, daily range): BP systolic 37–139; BP diastolic 23–70
--- NOTE | 2020-06-03 00:06 | NUR ---
Spoke to Dr Gupta about the heparin drip in view of his tracheostomy procedure tomorrow, ok to stop the drip
[2020-06-03] MEDS: NAFCILLIN SOD 2 GM/NS 100ML 100 ML IV SCH ×5 (01:00→17:03)
[2020-06-03] MEDS: FAMOTIDINE 20 MG/2 ML VIAL IV SCH ×2 (04:00→17:03)
[2020-06-03] MEDS: METOPROLOL TARTRATE 25 MG TAB PO SCH ×2 (04:00→16:00)
[2020-06-03 05:31] LABS: BASOPHILS # (AUTO) 0.1 (0.0-0.1); BASOPHILS % 0.4 % (0.0-1.0); EOSINOPHILS # (AUTO) 0.1 (0.0-0.4); EOSINOPHILS % 0.4 % (0.0-6.0); HEMATOCRIT 22.5 % (38.2-49.6); HEMOGLOBIN 7.8 g/dL (14.0-18.0); LYMPHOCYTES # (AUTO) 0.8 (1.0-3.2); LYMPHOCYTES % 4.2 % (18.0-39.1); MEAN CORPUSCULAR HEMOGLOBIN 32.2 pg (28-32); MEAN CORPUSCULAR HGB CONC 34.7 g/dL (31-35); MONOCYTES # (AUTO) 0.8 (0.2-0.8); MONOCYTES % 4.1 % (4.4-11.3); NEUTROPHILS # (AUTO) 16.4 (2.1-6.9); NEUTROPHILS % 86.5 % (38.7-80.0); PLATELET COUNT 328 x10e3/uL (140-360); RED BLOOD COUNT 2.42 x10e6/uL (4.3-5.7); RED CELL DISTRIBUTION WIDTH 26.4 % (11.7-14.4)
[2020-06-03 05:48] LABS: INR 1.84; PROTHROMBIN TIME 22.1 seconds (11.9-14.5)
[2020-06-03 05:58] LABS: ANION GAP 19.3 mmol/L (8-16); CALCIUM 8.3 mg/dL (8.4-10.2); CREATININE, SERUM 3.23 mg/dL (0.72-1.25); POTASSIUM 3.3 mmol/L (3.5-5.1)
[2020-06-03] MEDS: INSULIN REGULAR, HUMAN 100 UNIT/1 ML 3ML VIAL SQ SCH ×4 (06:00→17:03)
[2020-06-03] MEDS: INSULIN GLARGINE 100 UNITS/ML VIAL SQ SCH (06:00)
[2020-06-03] MEDS: METOCLOPRAMIDE HCL 10 MG/2ML VIAL IV SCH ×2 (06:00→17:03)
[2020-06-03] MEDS: AMIODARONE HCL 900 MG in DEXTROSE 5% 500ML 500 ML IV SCH (06:41)
[2020-06-03 07:59] LABS: BAND NEUTROPHILS % (MANUAL) 9 %; LYMPHOCYTES % (MANUAL) 8 % (19-48); MONOCYTES % (MANUAL) 1 % (3.4-9.0); NEUTROPHILS % (MANUAL) 82 % (40-74)
[2020-06-03 08:00] LABS: POLYCHROMASIA FEW; RBC MORPHOLOGY COMMENT ABNORMAL; TARGET CELLS FEW
[2020-06-03 08:01] LABS: PLATELET ESTIMATE ADEQUATE; PLATELET MORPHOLOGY COMMENT NORMAL; SCHISTOCYTES RARE
[2020-06-03] MEDS: CLOPIDOGREL BISULFATE 75 MG TAB PO SCH (09:00)
[2020-06-03] MEDS: HEPARIN 25,000 UNIT 800 UNIT in DEXTROSE 5% 250ML 250 ML IV SCH (09:27)
[2020-06-03] MEDS: MEROPENEM 500MG/ NS 50ML 50 ML IV SCH (09:27)
[2020-06-03] MEDS: ASPIRIN 81 MG CHEW TAB PO SCH (09:28)
[2020-06-03] MEDS: AMANTADINE HCL 50 MG/5 ML SOLUTION PO SCH ×2 (09:41→17:03)
--- NOTE | 2020-06-03 09:42 | NUR ---
patient less responsive than previously. 97.5 79 115/61 small pupils minimially reative on left. minimal response to corneal stim no nuchal rigidty rrr cta- rhonchus abd soft, reflexes diminished patient blinks to corneal stimulation shuts eyes to nox stim does not follow commands or focus on examiner with eyes a/p severe diffuse encephalopathy - toxic/infectious etiology initial eeg -2-3 hz low amplitude delta waves - slow and minimally responsive repeat eeg - 3-5hz low amplitude delta theta waves- slow and minimally responsive ct shows left lacuner infarcts but no gross structural abnormalities. patient eeg planned for tomorrow eval neuropyhsiological function will continue amantadine at this time - until eeg repeated. then will determine next step
--- NOTE | 2020-06-03 09:57 | Progress Note ---
DATE: 06/03/2020 SUBJECTIVE: The patient is at bedside, intubated, no response, getting dialyzed. OBJECTIVE: VITAL SIGNS: Afebrile. Pulse rate 68, respirations 17, blood pressure 109/49, and O2 saturation 100%. EXTREMITIES: Both lower extremities, stable for now. Gangrenous changes noted to the distal aspect of digits 2 through 5 with cyanosis noted with gangrenous changes noted to the right great toe and also cellulitis down to the mid foot. Both feet very cool to touch. LABORATORY DATA: Noted. White blood cell count 18.98. ASSESSMENT: Gangrene, ischemic feet, peripheral arterial disease. PLAN: Continue diluted wet-to-dry Betadine. Continue offloading. Continue IV antibiotics. We will continue to monitor. ОЛЕГ Blake/AVI /[id number]
[2020-06-03] MEDS ORDERED: PHYTONADIONE 10 MG/ML AMP SQ ONE (12:15)
--- NOTE | 2020-06-03 12:38 | NUR ---
DNAR. Talia Blandon RIBBON BLOCKER with palliative care has discussed with son regarding code status change. This nurse witnessed telephone conversation with son Jonathan Le on speaker phone agreeing with DNR status change at this time. Orders received from Dr Hong to enter DNAR status including no mechanical ventilation or intubation with possible future extubation.
--- NOTE | 2020-06-03 13:28 | NUR ---
Nutrition Intervention Note RD Recommendation(s) for Physician: -When hemodynamically stable, recommend advancing TF of Vital AF to goal rate of 55 ml/hr (provides 1584 kcal, 99 g protein, and 1071 mL water) -Water flushes/fluid management per MD -If unable to advance TF to goal rate and maintain rate within 24-48 hrs, recommend initiating standard TPN of 960 ml at 40 ml/hr -Check Phos and Mg prior to TPN initiation, replace low lytes as needed Plan of Care: RD following, monitoring for tolerance and adequacy, tube feed recommendation, TPN rec's Nutrition reason for involvement: follow up RD Assessment 06/03: Follow up. Pt discussed during MDR, plan for trach placement postponed until tomorrow. Pt remains intubated without sedation, non-responsive. Pt currently on 2 low dose pressors, per RN Levophed dosage fluctuates with HD needs. Pt receiving daily HD. Per RN pt not tolerating TF over weekend with reported high residuals, amount unknown, and TF decreased from 55 ml/hr. Pt previously on TF at 55 ml/hr per chart. RN to resume TF and advance as tolerated. Noted pt currently on Reglan as well. TF and TPN rec's provided. Pt now DNAR per chart. Will continue to monitor. 05/30: Follow up. Chart reviewed. Pt discussed during interdisciplinary rounds. Pt remains intubated and remains on pressor support. Pt is also receiving dialysis. Pt is tolerating TF @ 40 mL/hr. Current recommendations remain appropriate. Will continue to monitor. 05/27: Follow up. Pt remains intubated, off sedation, and on 2 pressors. Pt non-responsive off sedation, high dose pressors per RN, and tolerating TF at 20 ml/hr currently due to pressor dosage. Pt supine currently. Plan for HD today. Pt discussed during MDR, prognosis poor. Current TF rec's remain appropriate. Pt not meeting needs currently. Chart reviewed. Will continue to monitor. 05/23: Follow up. Pt remains intubated and is receiving Glucerna 1.2 @ 20 mL/hr. Recommendations provided. RD to manage TF order per Dr. Gupta. Will continue to monitor. (05/20/20) Pt is a 69 year old male admitted with afib with RVR, CHF, ESRD, and NSTEMI. Pt is receiving dialysis. Pt was intubated yesterday; therefore, unable to obtain nutrition history from pt at this time. It is noted that pt is primarily Sami speaking. Per chart, pt reported unsure weight loss and a decreased appetite prior to admission. Per weight history, pt weighed 155 lbs in May 2018. Therefore, no significant weight loss is evident. Recommend initiating enteral nutrition if pt is to remain intubated and consult RD. Will continue to monitor. Principal Problems/Diagnoses: afib with RVR, CHF, ESRD, and NSTEMI PMH: ESRD, diabetes, HTN GI: LBM 06/03- liquid Skin: suspected DTI R heel and toe, sacrum stage II PU Labs: 06/03: Na 138, K 3.3, BUN 51, Cr 3.23, Gluc 145, POC Gluc 56-151 05/30: Na 142, K 3.3, BUN 79, Cr 6.30, Glu 441, Ca 7.2, Total bili 6.1 05/27: Na 141, K 3.9, BUN 106, Cr 7.71, Gluc 256, Ca 6.2, POC Gluc 210-245 05/23: Na 132, K 4.2, BUN 73, Cr 5.83, Glu 354, Ca 8.0, Total Bili 3.5, AST 65 (05/20) Na 129, BUN 61, Cr 8.19, Glu 280, Ca 7.9, AST 140, ALT 90 Meds: abx, reglan IV, pepcid, micafungin IVF/Drips: Levophed at 3 mcg/min, Vasopressin at 0.2 ml/hr, Amiodarone drip, Heparin drip Ht: 65 inc Wt: 143 lbs (05/25) 145 lbs (05/22) 150 lbs (05/19) weight fluctuations likely due to dialysis BMI: 23.8 kg/m2 weight used 143 lbs IBW:136 lbs Malnutrition Evaluation (06/03/20) The patient does not meet criteria for a specified degree of malnutrition at this time. Will re-evaluate at follow-up as appropriate. Energy intake: <50% of estimated energy requirements for 5 days Weight loss: no significant weight loss is evident per weight history, weight fluctuations due to dialysis Fat loss: mild, dark circles around eyes Muscle loss: none, shoulder round Supporting Evidence: Fluid accumulation: +1 edema- not nutrition related, currently on HD daily Functional Status: unable to assess Nutrition Prescription (Diet Order): Vital AF at 55 ml/hr, currently off for trach placement- placement postponed until tomorrow, RN to resume TF Estimated Nutritional Needs: 7677-8040 calories/day (20-25 kcal/kg CBW) Weight used: 143 lbs 98-130 g protein/day (1.5-2 g pro/kg CBW) Weight used: 143 lbs Diet Adequacy: Not meeting calorie needs, Not meeting protein needs Tolerance: TF tolerance varies Diet Education Needs Assessment: Diet education not indicated, patient is intubated Nutrition Care Level: high Nutrition Diagnosis: Inadequate oral intake related to mechanical ventilation as evidenced by pt requiring enteral nutrition. Goal: Patient will meet 75-100% of estimated needs by follow up Progress: progressing Interventions: -Composition, Rate, Route Monitoring/Evaluation: -Total energy intake, Total protein intake, Weight change, Formula/Solution Signed: Bindu Mensah RD, LD, CNSC
--- NOTE | 2020-06-03 13:34 | Progress Note ---
DATE: 06/03/2020 SUBJECTIVE: Seen on dialysis. Blood pressure remains borderline. He is overall doing poorly. OBJECTIVE: VITAL SIGNS: Temperature is 97.5, pulse 96, and blood pressure 109/49. CHEST: Occasional rhonchi. EXTREMITIES: Gangrenous discoloration of the limbs. NEURO: Appears sedated. LABORATORY DATA: K 3.3, creatinine 2.23, BUN 51, calcium is 8.3. ASSESSMENT: End-stage renal disease, septic shock, respiratory failure, underlying diabetic hypertensive end-organ damage, osteomyelitis of the right foot. PLAN: Hemodialysis, today we are now using a temporary dialysis catheter due to malfunctioning of his fistula presumed on account of his hypotension, that has been quite prolonged, 3-hour run, 1 to 2 L fluid removal as blood pressure tolerates; 3 potassium bath, 3 calcium bath. Blood flow rate 350 mL/minute, dialysate flow rate 700 mL/minute. We will follow along. Overall prognosis remains poor. Family, however, wants to pursue all available measures MD JD Linder/MODL /[id number] VANESSA
--- NOTE | 2020-06-03 13:57 | NUR ---
IM- progress note O/N see below ROS: unreliable v/s; revd PE INTUBATED anicteric ns1s2 reduced bs soft nt nd RIGHT FOOT WITH 2ND AND 3RD DIGITS PARTIAL AMPUTATIONS WELL HEALED; GREAT TOE WITH NECROSIS APPEARING CHANGES. RECTAL TUBE skin dry flat affect NOT AWAKE; labs/meds revd A/P: 69yoM A.fib with RVR- IV amio/BB/AC Intractable N/V- antiemetics NSTEMI- heparin; hold statin with elevated liver fn; ASA+plavix; cardio eval; echo; check lipids. Acute on Chr Systolic CHF- HD for fluid removal Pulmonary edema- as above CAD with hx CABG- cont BB ESRD - HD per nephr Hypertensive heart ds- cont BB Hyperbilirubinemia- f/u COVID testing Transaminitis- as above Thrombocytopenia- monitor on AC AOCD- monitor on AC Secondary hyperparathyroidism Prop: AC Dispo: cct>35mins. f/u COVID testing; HD; antiemetics; AV blockade 9-6-20 HTG; Tn increased to 9; possible cirrhosis; A.fib with RVR- cardioversion pending; Right foot great toe Infection/DFU - IV abx; podiatry consult; cct>35mins 9-7 Tn 49; Hyponatremia; Worsened WBC; cont antimicrobials and vent support; very sick patient; continue care in ICU. 05/21 intubated; septic shock on pressor; Osteomyelitis of right foot great toe- Podiatry consulted; cct>35mins 9-9 growth detected in blood; f/u; con antimicrobials; remains very ill. CT head done few days ago negative. 9-10 hyperbilirubinemia- check NH3 levels; Staph aureus infected sputum- f/u spp. 9-11 Hyperammonemia 300- Hepatic encephalopathy- start lactulose; f/u EEG ordered by neurology. f/u labs 9-12 Anoxic brain injury; Bacteremia- species pending; Acute resp failure; Liver failure; Prognosis poor; left ; d/w son and by telephone; 9-13 Diffuse encephalopathy; no seizure activity on EEG; cont care; will further discuss with family; Persistent Staph aureus Bacteremia; 14 Focal Left Lacunar Infarcts- likelyl Septic Embolic Strokes; continue antimicrobials; f/u echo; Replace Ca. 9-15 Poorly responsive; no response to pain. D/w eldest son Jonathan, who wants a letter for other family members to come from [place]. This will serve as his letter, which describes the grave/poor condition of the patient. 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 d/w family again 05-30 D/w ID about line changes, further d/w - attempts will be made, but pt remains critically ill on pressors that require central lines. As noted by cardio, ICD may also be infected, but not feasible at this time to replace; Repeat blood cultures not turning positive again; pt has been septicemic with MSSA. On nafcillin/merrem/vanco and micafungin. Not interactive; No localization. Palliative care consult to discuss with family; Family at this pt wants everything done. 05-31 Neurotropic tx started by ; MultiOrgan failure; Fungemia; Poor prognosis. 06-01 contiue supportive care per family. On vasopressin/amio gtt. 06-02 Titrate insulin up; continued talks with family; cont care; Called family- Spoke to - and son Abiodun- agrees. on levphed./vaso. 06-03 Family moving ahead with DNR status and plans to withdraw care soon. MELVA MENDEZ MD, PHD.
--- NOTE | 2020-06-03 14:09 | Progress Note ---
DATE: SUBJECTIVE: The patient received dialysis this morning. He is still somnolent and not arousable. His Levophed is down to 4 mcg. His vasopressin is down to 0.02. He remains on SIMV mode of ventilation. PHYSICAL EXAMINATION: VITAL SIGNS: The patient is afebrile. The blood pressure is 109/50, saturation is 100%. HEENT: Shows no facial swelling or erythema. LYMPHATIC: Shows no submandibular, cervical, or supraclavicular adenopathy. CARDIAC: Reveals regular rate and rhythm with normal S1, S2. LUNGS: Auscultation of lungs reveals rhonchorous breath sounds bilaterally. There is no wheezing. ABDOMEN: Soft, nontender. There is no rebound or guarding. EXTREMITIES: Shows no leg edema or calf tenderness. There is no cyanosis or clubbing. SKIN: Shows no rashes. NEUROLOGICAL: Shows no focal abnormalities. LABORATORY DATA: White blood cell count is 18.9, hemoglobin is 7.8. The platelet count is 328. The BUN to creatinine ratio is 51 to 3.23. Other electrolytes are within normal limits. IMPRESSION: 1. Staphylococcus aureus bacteremia was secondary to endocarditis with septic shock present on admission. 2. Mitral valve endocarditis. 3. Dry gangrene of the great toe on the right side. 4. Osteomyelitis of the great toe on the right side. 5. Fungemia. 6. Acute on chronic renal failure. 7. Myocardial infarction. 8. Atrial fibrillation. 9. Metabolic encephalopathy. PLAN: 1. Continue current antibiotics. 2. Continue to wean pressors as tolerated. 3. Continue heparin and amiodarone. 4. Continue current ventilator settings. 5. Family is now opting for DNR status. 6. Family is considering withdrawal. Tomas Gupta MD [facility]/MODL /[id number]
--- NOTE | 2020-06-03 14:44 | NUR ---
ORDER RECEIVED FOR AN LTAC. CALL TO PT'S ; [facility] @ [phone]. NO ANSWER; VM FULL. CALL TO THE ICU. SPOKE Hung LAL RN. STATES THEY WERE ABOUT TO TERMINALLY EXTUBATE THE PT. CM WILL CONT TO FOLLOW THE PT FOR NOW.
[2020-06-03] MEDS ORDERED: MORPHINE SULFATE INJ 4 MG/ML INJ 1ML IV PRN (14:45)
[2020-06-03] MEDS ORDERED: LORAZEPAM INJ 2 MG/ML VIAL IV PRN (14:45)
--- NOTE | 2020-06-03 15:59 | Consultation ---
DATE OF CONSULTATION: 06/03/2020 CHIEF COMPLAINT: Sepsis. HISTORY OF PRESENT ILLNESS: The patient is a 69-year-old male, admitted with nausea and vomiting and tachycardia with atrial fibrillation. The patient eventually was diagnosed with bacteremia and septicemia secondary to endocarditis. The patient has been on the ventilator for several weeks with vasopressor. The patient is a candidate for a tracheostomy for continued ventilator management. PAST MEDICAL HISTORY: Positive for coronary artery disease, end-stage renal disease, hypertension, diabetes, hyperlipidemia, and osteomyelitis of the right toes. PAST SURGICAL HISTORY: Positive for coronary artery bypass grafting, pacemaker placement, and AV fistula creation. ALLERGIES: THE PATIENT HAS NO DRUG ALLERGIES. REVIEW OF SYSTEMS: Not obtainable. PHYSICAL EXAMINATION: VITAL SIGNS: Stable. He is afebrile. The patient is nonresponsive, encephalopathic. LUNGS: He is intubated with bilateral rhonchi. HEART: Irregular rate and rhythm. He has no murmurs. ABDOMEN: Soft. EXTREMITIES: No cyanosis or edema. LABORATORY DATA: The patient's white cell count is 18,000, hemoglobin of 7.8 with platelet count of 328. Creatinine is 3.2 with potassium 3.3. His INR is 1.8 with PT of 22, and PTT of 58, on IV heparin drip. Chest x-ray show pulmonary edema. No pneumothorax. ASSESSMENT: Septic shock secondary to mitral valve endocarditis with recent history of myocardial infarction, currently on vasopressor and ventilator. PLAN: Tracheostomy tube placement. Attendant risks discussed with family. Rolando Melendez MD DNErick/MODL /[id number]
[2020-06-03] MEDS: MICAFUNGIN SODIUM 100 ML IV SCH (17:03)
--- NOTE | 2020-06-03 17:29 | NUR ---
Pt extubated without complications. Ngtube also removed as per palliative care. No further finger sticks.
--- NOTE | 2020-06-03 19:04 | NUR ---
Extubation and cardioactive medications were DC'd per son, ex-wide, palliative care, Dr Hong, and Dr Erick Gupta. Pt with gradual decline of blood pressures and oxygen saturation. Pt was noted with no respirations, no notable O2 concentration, magnet was placed to pacemaker. Dr Duran from ED came over to evaluate and pronounce . Time of 183. Family was present at window at time of . Spoke to son by telephone. He has requested for nursing to call him back after a while to discuss release of body and home.
--- NOTE | 2020-06-03 20:22 | NUR ---
PATIENT'S SON, GUDELIA SALAZAR, WAS CALLED TO NOTIFY HOME HAD ARRIVED. SON DECLINED AUTOPSY AND GAVE VERBAL AUTHORIZATION FOR HOME TO TRANSPORT PATIENT. ROOM CHECKED PRIOR TO DEPART, NO PERSONAL BELONGINGS PRESENT AT THIS TIME. ERECTING ENGINEER WITNESS PHONE CALL AND TRANSPORT OF PATIENT OFF THE UNIT VIA HOME STRETCHER.
== END 2020-06-03 20:35 | disposition expired | DRG 870 ==
LOC: ER 14:00 → ERHOLD 16:03 → ICU 21:29
PROVIDERS: ADMIT Internal Medicine; ATTEND Internal Medicine
PROC: 5A2204Z Restoration of Cardiac Rhythm, Single (ICD-10-PCS; principal; 2020-05-19)
PROC: 02HV33Z Insertion of Infusion Device into Superior Vena Cava, Percutaneous Approach (ICD-10-PCS; 2020-05-19)
PROC: B548ZZA Ultrasonography of Superior Vena Cava, Guidance (ICD-10-PCS; 2020-05-19)
PROC: 5A1955Z Respiratory Ventilation, Greater than 96 Consecutive Hours (ICD-10-PCS; 2020-05-20)
PROC: 0BH17EZ Insertion of Endotracheal Airway into Trachea, Via Natural or Artificial Opening (ICD-10-PCS; 2020-05-20)
PROC: 3E043XZ Introduction of Vasopressor into Central Vein, Percutaneous Approach (ICD-10-PCS; 2020-05-24)
PROC: 02HV33Z Insertion of Infusion Device into Superior Vena Cava, Percutaneous Approach (ICD-10-PCS; 2020-05-29)
PROC: B548ZZA Ultrasonography of Superior Vena Cava, Guidance (ICD-10-PCS; 2020-05-29)
PROC: 02HV33Z Insertion of Infusion Device into Superior Vena Cava, Percutaneous Approach (ICD-10-PCS; 2020-06-02)
PROC: B548ZZA Ultrasonography of Superior Vena Cava, Guidance (ICD-10-PCS; 2020-06-02)
DX: A41.01 Sepsis due to Methicillin susceptible Staphylococcus aureus (principal); I21.4 Non-ST elevation (NSTEMI) myocardial infarction; N18.6 End stage renal disease; I50.23 Acute on chronic systolic (congestive) heart failure; G93.41 Metabolic encephalopathy; R65.21 Severe sepsis with septic shock; J96.01 Acute respiratory failure with hypoxia; J15.211 Pneumonia due to Methicillin susceptible Staphylococcus aureus; K72.00 Acute and subacute hepatic failure without coma; I63.81 Other cerebral infarction due to occlusion or stenosis of small artery; I33.0 Acute and subacute infective endocarditis; I13.2 Hypertensive heart and chronic kidney disease with heart failure and with stage 5 chronic kidney disease, or end stage renal disease; E11.52 Type 2 diabetes mellitus with diabetic peripheral angiopathy with gangrene; I96 Gangrene, not elsewhere classified; E87.2 Acidosis; N25.81 Secondary hyperparathyroidism of renal origin; E87.1 Hypo-osmolality and hyponatremia; N17.9 Acute kidney failure, unspecified; M86.8X7 Other osteomyelitis, ankle and foot; T82.7XXA Infection and inflammatory reaction due to other cardiac and vascular devices, implants and grafts, initial encounter; Z79.01 Long term (current) use of anticoagulants; E11.69 Type 2 diabetes mellitus with other specified complication; Z95.810 Presence of automatic (implantable) cardiac defibrillator; Z11.59 Encounter for screening for other viral diseases; Z95.1 Presence of aortocoronary bypass graft; D69.6 Thrombocytopenia, unspecified; I25.10 Atherosclerotic heart disease of native coronary artery without angina pectoris; K74.60 Unspecified cirrhosis of liver; I48.0 Paroxysmal atrial fibrillation; B95.5 Unspecified streptococcus as the cause of diseases classified elsewhere; B95.61 Methicillin susceptible Staphylococcus aureus infection as the cause of diseases classified elsewhere; Z66 Do not resuscitate; Z51.5 Encounter for palliative care; L89.151 Pressure ulcer of sacral region, stage 1
CPT/HCPCS: 31500; 36415; 36556; 36600; 70450; 71045; 74018; 74470; 76705; 76937; 80048; 80053; 80061; 80202; 82140; 82550; 82553; 82805; 82948; 83036; 83605; 83735; 83880; 84100; 84146; 84443; 84484; 85025; 85610; 85730; 86705; 86706; 87040; 87070; 87071; 87186; 87205; 87340; 87400; 90962; 93005; 93306; 94002; 94003; 95812; 96372; 99251; 99285; C1769; J0330; J0610; J1160; J1644; J1815; J1817; J2060; J2248; J2270; J2370; J2405; J2765; J3010; J3370; J3430; J7030; J7040; J7050; J7060; J7070; J7799; P9047